=== PATIENT | female | born 1970 | race Caucasian/White ===

== ENCOUNTER 2017-10-17 17:50 | Emergency (ER) | payer OTHER, SELFPAY ==
[2017-10-17 17:52] VITALS: BP 127/81; PULSE 99; RESP 16; TEMP 37.1; O2SAT 96; BMI 24.9
--- NOTE | 2017-10-17 18:15 | CT_ITS ---
STUDY: CT ABDOMEN AND PELVIS WITHOUT CONTRAST REASON FOR EXAM: Female, 47 years old. Fever, nausea and abdominal pain. RADIATION DOSAGE (If Supplied By Facility): CTDIvol = ( 8.10 ) mGy, DLP = ( 396.61 ) mGycm TECHNIQUE: Transaxial images were obtained from the dome of the diaphragm to the symphysis pubis without oral contrast, and without intravenous contrast. Sagittal and coronal images were reconstructed. Individualized dose optimization techniques were used for this CT. COMPARISON: None. FINDINGS: The visualized lung bases are unremarkable. The visualized portions of the heart are within normal limits. Normal liver. Normal gallbladder and extrahepatic biliary system. There are multiple benign calcified granulomata of the spleen. Normal pancreas. Normal bilateral adrenal glands. Normal right kidney. Normal left kidney. Evaluation of the GI tract is limited by absence of oral contrast. Cannot exclude stomach wall thickening. No dilated loops of bowel or evidence for obstruction. Cannot exclude segmental thickening of the ibarra of the small or large bowel. Cannot exclude enteritis. Prominent thickening of the wall of the proximal descending colon and pericolonic fat stranding, where there are numerous diverticuli. Findings are best seen on coronal images 54-66. Findings are most likely related to acute diverticulitis. No gross perforation or abscess. Appendix within normal limits. Normal abdominal aorta. Normal inferior vena cava. Normal retroperitoneum. Normal urinary bladder. Normal visualized uterus. Normal abdominal wall. Normal osseous structures. CT/Abdomen/Pelvis without Cont IMPRESSION: Abnormal proximal descending colon most consistent with acute diverticulitis. Electronically Signed: Eliud Lentz MD at 19:06 EDT , Service support ,
[2017-10-17] MEDS: 0.9% Normal Saline 1,000 ML 1000 ML IV (18:27)
[2017-10-17 18:31] LABS: Bacteria 0 SEEN /hpf (None Seen); Mucous, Urine 0 SEEN /hpf (<or=2+); Red Blood Cells-Urine 0 SEEN /hpf (0-5); White Blood Cells 0 SEEN /hpf (0-5)
[2017-10-17 18:39] LABS: Color, Urine Yellow (Yellow); Glucose, Dipstick Normal (Normal); Ketone-Dipstick Negative (Negative); Leukocyte Esterase-Dipstick Negative /ul (Negative); Nitrite-Dipstick Negative (Negative); Occult Blood-Urine Negative /ul (Negative); Protein-Dipstick Negative (Negative); Urine Bilirubin Dipstick Negative (Negative); Urine Clarity Clear (Clear); Urine Urobilinogen Normal (Normal)
[2017-10-17 18:44] LABS: Squamous Epithelial Cells - UA 0-5 SEEN /hpf (5-10)
[2017-10-17 18:47] LABS: Absolute Lymphocyte Count 1.19 X10^3/ul (0.83-4.51); Absolute Neutrophil Count 12.3 X10^3/uL (2.0-7.7); Anion Gap 9 (5-15); BUN 8 mg/dL (7-18); BUN/Creat Ratio 11.3 RATIO (10-20); Basophil# 0.01 X10^3/uL; Basophil% 0.1 % (0-1); Calcium,Total 8.6 mg/dL (8.5-10.1); Chloride 106 mmol/L (98-107); Creatinine, Serum 0.71 mg/dL (0.55-1.02); EST Glomerular Filtration Rate 94 mL/min (>60); Eosinophil# 0.07 X10^3/uL; Eosinophils% 0.5 % (0-5); Est Glom Filt Rate - Afr Amer 113 mL/min (>60); Estimated Creatinine Clearance 83.68 ml/min; Glucose 96 mg/dL (74-106); Hematocrit 42.3 % (37-47); Hemoglobin 14.4 g/dl (12.0-15.0); Lymphocyte # 1.19 X10^3/ul (4.0); Lymphocyte % 8.3 % (19-41); Mean Corpuscular Hgb 30.5 pg (27.0-32.0); Mean Corpuscular Volume 89.6 fL (81-99); Mean Platelet Vol. 9.9 fl (6.2-12.0); Monocyte# 0.84 X10^3/uL; Monocyte% 5.8 % (0-10); Neutrophil # 12.29 X10^3/uL (2.7-7.7); Neutrophil % 85.2 % (47-70); POSITIVE COUNT NO; POSITIVE DIFFERENTIAL NO; POSITIVE MORPHOLOGY NO; Platelet Count 240 K/mm3 (150-450); Potassium 3.5 mmol/L (3.5-5.1); RBC Distribution Width CV 12.3 % (11.6-14.6); RBC Distribution Width SD 39.7 fl (35.1-43.9); Red Blood Count 4.72 M/mm3 (4.2-5.4); Sodium Level 139 mmol/L (136-145); White Blood Count 14.4 K/mm3 (4.4-11.0)
--- NOTE | 2017-10-17 19:44 | ED.DCSUM_ITS ---
- ER Visit Summary Date of Service: 10/17/17 Chief Complaint: Abdominal pain History of Present Illness: The patient is a 47 F presenting for evaluation secondary to abdominal pain. Patient states that since yesterday she has had lower abdominal pain that she describes as a continuous pressure across her abdomen and a sharp pain in her left lower quadrant that goes through to her lower back. Patient states that it has been associated with nausea no vomiting and has not been alleviated by Advil. She does state that she has had some chills associated with this. Also states that she has some urinary frequency. Patient states that the symptoms seem somewhat similar to a ruptured ovarian cyst that she had 6 months ago. She also has a history of diverticulitis in the past. Physical Examination: Vital signs within normal limits. Well-nourished female no acute distress. Moist mucous membranes, neck supple. Heart regular rate and rhythm, lungs clear to auscultation bilaterally. Abdomen tender in the left lower quadrant no guarding rebound tenderness nondistended normal bowel sounds. No skin rashes noted remainder of physical otherwise unremarkable. Test Results: CT abdomen and pelvis shows diverticulitis. CBC shows leukocytosis of 14. Chemistry and urinalysis negative. Emergency Department Course and Treatment: Patient presented with left lower quadrant abdominal pain. She did have some concern for the possibility of diverticulitis CT was performed concerned this. Patient does not have any evidence of acidosis or anion gap she does have mild leukocytosis I believe she is appropriate for outpatient treatment. Patient will be sent home with Augmentin, [place], and Zofran. She was given signs and symptoms for which to return was instructed to follow-up with her primary care physician. Disposition: Discharge Impression: 1. Diverticulitis This note was generated with [employer] dictation software. It may contain incorrect words, spelling, and punctuation that were not noted in review of the chart prior to signing ED Disposition - Plan for ED Patient: Disposition: Home or Assisted Living Chief Complaint: Abd Pain Diagnosis: Diverticulitis Instructions: ED Diverticulitis Prescriptions: Hydrocodone Bitart/Apap 5-325 [[place] 5/325] 1 tab PO Q6H PRN PRN 3 Days #12 tab PRN Reason: Pain Ondansetron [Zofran Odt] 4 mg PO Q8H PRN PRN #10 tab PRN Reason: Nausea Amox/Clavulanate Tablet [Augmentin Tablet] 875 mg PO Q12H #28 tab Referrals: Elder Argueta MD [Primary Care Provider] - 1-2 Weeks
[2017-10-17] MEDS: Amox/Clavulanate 875 MG Tablet PO (20:02)
[2017-10-17 20:05] VITALS: BP 118/72; PULSE 70; RESP 14; O2SAT 100
== END 2017-10-17 20:05 | disposition home or self-care (01) ==
LOC: ED 18:34
PROVIDERS: Emergency Provider Emergency Medicine; Family Provider Family Medicine; PCP Family Medicine
DX: K57.92 Diverticulitis of intestine, part unspecified, without perforation or abscess without bleeding (principal)
CPT/HCPCS: 74176; 80048; 81001; 85025; 99284; J7030; A4216

== ENCOUNTER → 2018-10-20 18:06 | Outpatient (CLI) | payer OTHER, SELFPAY | PROVIDERS: Family Provider Family Medicine; PCP Family Medicine; Referring Provider Family Medicine; Visit Provider Family Medicine | DX: R10.2 Pelvic and perineal pain (principal) | CPT/HCPCS: 87086; 87088 ==

== ENCOUNTER 2018-10-29 13:59 | Inpatient (IN) | payer OTHER, SELFPAY ==
[2018-10-29 13:59] VITALS: BP 129/91; PULSE 105; RESP 16; TEMP 37.3; O2SAT 100; BMI 24.3
--- NOTE | 2018-10-29 14:25 | CT_ITS ---
STUDY: CT ABDOMEN AND PELVIS WITHOUT CONTRAST REASON FOR EXAM: Female, 48 years old. Abdominal pain, history of diverticulitis RADIATION DOSAGE (If Supplied By Facility): CTDIvol = ( 12.32 ) mGy, DLP = ( 706.71 ) mGycm TECHNIQUE: Transaxial images were obtained from the dome of the diaphragm to the symphysis pubis without oral contrast, and without intravenous contrast. Sagittal and coronal images were reconstructed. Individualized dose optimization techniques were used for this CT. COMPARISON: CT abdomen and pelvis 10/17/2017. FINDINGS: Lack of intravenous contrast limits evaluation of abdominal and pelvic organs. The visualized lung bases are unremarkable. The visualized portions of the heart are within normal limits. Normal liver. Normal gallbladder and extrahepatic biliary system. Normal spleen. Normal pancreas. Normal bilateral adrenal glands. Normal right kidney. Normal left kidney. Normal visualized stomach. Normal small intestine. There is colonic diverticulosis most prominent at the sigmoid colon. There is a segment of sigmoid colon wall thickening and adjacent mesenteric inflammation and stranding in keeping with acute diverticulitis. There is no perforation or abscess. There is trace free fluid in the left pelvis.. The appendix is visualized and appears normal. Normal abdominal aorta. Normal inferior vena cava. Normal retroperitoneum. Normal urinary bladder. There are nabothian cysts seen in the posterior cervix. There is a left ovarian cyst measuring 2.7 x 2.5 cm. Normal abdominal wall. Normal osseous structures. CT/Abdomen/Pelvis W IV Cont ONLY IMPRESSION: Acute sigmoid diverticulitis. No perforation or abscess. Trace free fluid in the left pelvis. Electronically Signed: Marc Bowling, at 15:57 EDT Tel , Service support ,
[2018-10-29] MEDS: Ondansetron 4 MG/2 ML Vial IV (14:35)
[2018-10-29] MEDS: 0.9% Normal Saline 1,000 ML 1000 ML IV (14:35)
[2018-10-29] MEDS: Morphine 4 MG/ML Syringe IV (14:36)
[2018-10-29 14:53] LABS: Absolute Lymphocyte Count 1.27 X10^3/ul (0.83-4.51); Absolute Neutrophil Count 9.8 X10^3/uL (2.0-7.7); Basophil# 0.01 X10^3/uL; Basophil% 0.1 % (0-1); Eosinophil# 0.05 X10^3/uL; Eosinophils% 0.4 % (0-5); Hematocrit 42.4 % (37-47); Hemoglobin 14.4 g/dl (12.0-15.0); Lymphocyte # 1.27 X10^3/ul (4.0); Mean Corpuscular Hgb 29.6 pg (27.0-32.0); Mean Corpuscular Volume 87.1 fL (81-99); Mean Platelet Vol. 10.5 fl (6.2-12.0); Monocyte# 0.42 X10^3/uL; Monocyte% 3.6 % (0-10); Neutrophil # 9.81 X10^3/uL (2.7-7.7); Neutrophil % 84.8 % (47-70); POSITIVE COUNT NO; POSITIVE DIFFERENTIAL NO; POSITIVE MORPHOLOGY NO; Platelet Count 265 K/mm3 (150-450); RBC Distribution Width CV 12.6 % (11.6-14.6); RBC Distribution Width SD 39.5 fl (35.1-43.9); Red Blood Count 4.87 M/mm3 (4.2-5.4); White Blood Count 11.6 K/mm3 (4.4-11.0)
[2018-10-29 15:26] LABS: Anion Gap 8 (5-15); BUN 8 mg/dL (7-18); BUN/Creat Ratio 9.6 RATIO (10-20); Chloride 107 mmol/L (98-107); Creatinine, Serum 0.83 mg/dL (0.55-1.02); EST Glomerular Filtration Rate 77 mL/min (>60); Est Glom Filt Rate - Afr Amer 93 mL/min (>60); Glucose 134 mg/dL (74-106); Potassium 3.5 mmol/L (3.5-5.1); Sodium Level 141 mmol/L (136-145)
[2018-10-29 16:16] VITALS: PULSE 89; RESP 18; O2SAT 100
--- NOTE | 2018-10-29 16:19 | ED.DCSUM_ITS ---
History of Present Illness Chief Complaint: Abd Pain Informant: Patient Onset: Days - Day 10 of Augmentin Context: Sudden Onset Timing: Continuous Quality: Pain left lower quadrant Location: Left lower quadrant Current Severity: Mild Maximum Severity: Severe Worsened by: Walking, coughing palpation Relieved by: Nothing Associated Symptoms: Nausea Narrative: Patient is a 48-year-old woman who has been diagnosed with diverticulitis 6 prior occasions. She was seen by her primary care physician and placed on Augmentin. She is on day 10 of Augmentin. She reports because of increased pain. She does complain of subjective fever and nausea. She denies dysuria, frequency, urgency or hematuria. She has a remote history of renal calculi. She states this pain is not like the pain she experienced with obstructing stone. She denies cardiac respiratory symptoms. - Past Medical History (1) Diverticulitis large intestine Status: Acute Past Medical History - Allergies and Home Meds Allergies/Adverse Reactions: Allergies morphine Adverse Reaction (Verified 10/29/18 15:21) Shortness of breath anxiety, chest tightness, tachycardia, tingling in fingers, sob Primary Care Physician: Elder Argueta MD [Primary Care Provider] - Prior records reviewed: Yes Lives: Spouse/ Significant Other Smoking Status: Never smoker Drugs: None Review of Systems General: Reports: Fever, Subjective. Denies: Chills, Malaise, Sweats, Weight loss Eyes: Denies: Visual changes - bilaterally, Diplopia ENT: Denies: Rhinorrhea, Sore throat Cardiovascular: Denies: Chest pain, Palpitations Respiratory: Denies: Dyspnea, Cough, Dyspnea on exertion Gastrointestinal: Reports: Abdominal pain, Nausea. Denies: Vomiting, Diarrhea, Constipation, Melena, Hematochezia Genitourinary: Denies: Dysuria, Hematuria, Frequency Musculoskeletal: Denies: Back pain, Extremity Pain Skin: Denies: Rash, Wounds Neurological: Denies: Headache, Weakness, Numbness Hematologic: Denies: Easy bruising, Easy bleeding Allergy: Denies: Uticaria, Swelling of the mouth Physical Exam Vital Signs/Narrative: Vital Signs Temp Pulse Resp BP Pulse Ox 10/29/18 13:59 99.1 F 105 H 16 129/91 H 100 Inital Vital Signs reviewed: Yes General: Well nourished, Well developed, No Acute Distress Head: Normocephalic, Atraumatic Eyes: Perrl, EOMI. Negative for: Pale conjunctiva, Scleral icterus, - ENT: Moist mucous membranes, No rhinorrhea, TM's clear Neck: Supple, Nontender, No lymphadenopathy, No JVD, - Cardiovascular: Regular rate, Regular rhythm, No murmurs, Normal S1, Normal S2 Respiratory: No distress, CTA bilaterally, Chest nontender Abdomen: Nondistended, No masses, Tender, Guarding, Rebound tenderness, Hypoactive bowel sounds. Negative for: Normal bowel sounds, Hepatomegaly, Splenomegaly, Mass, Pulsatile mass Rectal: Deferred Back: Nontender, Normal Inspection. Negative for: CVA tenderness Extremities: Nontender, No edema Skin: Normal color, No rash Neurological: Alert, Oriented x3, Cranial nerves II-XII grossly intact, Normal Strength, Normal Sensation Psychological: Normal affect, Normal Mood Diagnostic/Tx/Re-eval Impressions Abdomen/Pelvis CT 10/29/18 14:25 IMPRESSION: Acute sigmoid diverticulitis. No perforation or abscess. Trace free fluid in the left pelvis. Electronically Signed: Marc Tawnya, at 15:57 EDT Tel , Service support , 10/29/18 14:25 Abdomen/Pelvis W IV Cont ONLY [CT] Stat Laboratory Results 10/29/18 10/29/18 14:34 14:34 WBC 11.6 H RBC 4.87 Hgb 14.4 Hct 42.4 MCV 87.1 MCH 29.6 MCHC 34.0 RDW 12.6 RDW Differential 39.5 Plt Count 265 MPV 10.5 Immature Gran % (Auto) 0.100 Neut % (Auto) 84.8 H Lymph % (Auto) 11.0 L [place] % (Auto) 3.6 Eos % (Auto) 0.4 Baso % (Auto) 0.1 Absolute Neuts (auto) 9.8 H Absolute Lymphs (auto) 1.27 Total Counted Not Reportable Sodium 141 Potassium 3.5 Chloride 107 Carbon Dioxide 26.0 Anion Gap 8 BUN 8 Creatinine 0.83 Estim Creat Clear Calc 70.80 Est GFR (MDRD) Af Amer 93 Est GFR (MDRD) Non-Af 77 BUN/Creatinine Ratio 9.6 L Glucose 134 H Calcium 9.0 - Medical Decision Making Because patient has peritoneal findings and has completed 10 days of Augmentin will obtain CT of the abdomen to rule out perforation. Appropriate blood work was ordered. She received 4.5 g of Zosyn IV piggyback. Patient was informed of results. Hospitalist was paged for admission. ED Disposition - Plan for ED Patient: Disposition: Acute Care Hospital [facility] Diagnosis: Diverticulitis of sigmoid colon Referrals: Elder Argueta MD [Primary Care Provider] -
[2018-10-29 16:32] VITALS: BMI 24.4
[2018-10-29 17:10] VITALS: BMI 25.0
[2018-10-29 17:13] VITALS: BP 131/93; PULSE 73; RESP 18; TEMP 36.7; O2SAT 100
--- NOTE | 2018-10-29 17:33 | HP.PCM_ITS ---
Problem List (1) Diverticulitis large intestine Status: Chronic (2) Diverticulitis of sigmoid colon Status: Acute History of Present Illness Date of Admission: 10/29/18 Chief Complaint: Abdominal pain on and off for about 2 weeks The patient is a 48 year old With history of recurrent sigmoid diverticulitis for last 5 years, at least once every year came to ED with abdominal pain, nausea and diarrhea. This is started about 2 weeks ago and was started on Augmentin but she still having abdominal pain, nausea even on 10th day of antibiotic. She was seen by surgeon and [facility] about 3 years ago but has not seen recently. CT abdomen without contrast was done and shows acute sigmoid diverticulitis with no perforation or abscess but trace free fluid in left pelvis. The patient is started on IV antibiotics, Cipro and Flagyl after failure of outpatient antibiotic Past Medical History Past Medical History (Chronic Problems): Chronic Problems Diverticulitis large intestine (Chronic) Allergies morphine Allergy (Verified 10/29/18 17:23) Shortness of breath anxiety, chest tightness, tachycardia, tingling in fingers, sob Home Medications: Ambulatory Orders Medication Instructions Recorded Amox/Clavulanate Tablet [Augmentin 875 mg PO Q12H #28 tab 10/17/17 Tablet] Lives: Spouse/ Significant Other Smoking Status: Never smoker Tobacco Use: Non-smoker Drugs: None - *Family History Maternal History Items: - - Diverticulitis Colon polyps in maternal aunt. Review of Systems Constitutional: Denies: Chills, Fever HEENT: Denies: Head Aches, Sinus Congestion, Sinus Drainage Cardiovascular: Denies: Chest Pain, Palpitations Respiratory: Denies: Cough, Shortness of breath at rest, Sputum production Gastrointestinal: Reports: Abdominal Pain, Diarrhea, Nausea. Denies: Hematemesis, Hematochezia, Vomiting Genitourinary: Reports: Frequency, - - Bladder irritation. Denies: Dysuria Musculoskeletal: Denies: Joint Pain, Joint Tenderness Skin: Denies: Rash, Wounds Neurological: Denies: Numbness, Tingling, Focal weakness Psychiatric: Denies: Anxiety, Depression, Homicidal Ideations, Suicidal Ideations Hematologic/ Lymphatic: Denies: Easy Bruising, Easy Bleeding VTE Information - Inpt Only VTE Present on Admission: No VTE Mechan Device Prophylaxis: SCD's VTE Pharm Prophylaxis ordered?: No Patient Problems: Active and Suspected Problems Diverticulitis of sigmoid colon (Acute) - Physical Exam General: Alert, Oriented x3, Cooperative HEENT: Atraumatic, PERRLA, EOMI, Normocephalic Neck: Supple, No JVD, Negative Carotid Bruits Lungs: Clear to auscultation, Normal air movement, No rhonchi, No wheeze, No rales Cardiovascular: Regular rate, Regular Rhythm, Normal S1, Normal S2, No murmurs Abdomen: Bowel Sounds Present, Soft, Non-Distended, Hyperactive Bowel Sounds, Tender - Tenderness present over left lower quadrant and hypochondriac region Extremities: No edema, Capillary Refill Less than 3 Seconds Skin: No rashes, No breakdown Musculoskeletal: No Tenderness to Palpation of Joints or Extremities Lymphatic: No Cervical, Supraclavicular, or Inguinal Adenopathy Neurological: Cranial nerves II-XII grossly intact, Deep Tendon Reflexes 2+/4 and Symmetrical, Neuro grossly intact, Motor Exam 5/5 strength throughout Psych/Mental Status: Normal Affect, Appropriate Vital Signs Temp Pulse Resp BP Pulse Ox 98.0 F 73 18 131/93 H 100 10/29/18 17:13 10/29/18 17:13 10/29/18 17:13 10/29/18 17:13 10/29/18 17:13 Oxygen Delivery Method Room Air Weight: 145 lb 11.2 oz Body Mass Index (BMI) 25.0 Laboratory Tests Past 24 Hrs 10/29/18 10/29/18 14:34 14:34 WBC 11.6 H RBC 4.87 Hgb 14.4 Hct 42.4 MCV 87.1 MCH 29.6 MCHC 34.0 RDW 12.6 RDW Differential 39.5 Plt Count 265 MPV 10.5 Immature Gran % (Auto) 0.100 Neut % (Auto) 84.8 H Lymph % (Auto) 11.0 L [place] % (Auto) 3.6 Eos % (Auto) 0.4 Baso % (Auto) 0.1 Absolute Neuts (auto) 9.8 H Absolute Lymphs (auto) 1.27 Total Counted Not Reportable Sodium 141 Potassium 3.5 Chloride 107 Carbon Dioxide 26.0 Anion Gap 8 BUN 8 Creatinine 0.83 Estim Creat Clear Calc 70.80 Est GFR (MDRD) Af Amer 93 Est GFR (MDRD) Non-Af 77 BUN/Creatinine Ratio 9.6 L Glucose 134 H Calcium 9.0 Assessment/Plan All Active Problems Diverticulitis of sigmoid colon (Acute) The patient is a 48 year old With history of recurrent sigmoid diverticulitis for last 5 years, at least once every year came to ED with abdominal pain, nausea and diarrhea. This is started about 2 weeks ago and was started on Augmentin but she still having abdominal pain, nausea even on 10th day of antibiotic. She was seen by surgeon and [facility] about 3 years ago but has not seen recently. CT abdomen without contrast was done and shows acute sigmoid diverticulitis with no perforation or abscess but trace free fluid in left pelvis. The patient is started on IV antibiotics, Cipro and Flagyl after failure of outpatient antibiotic. 1. Acute sigmoid diverticulitis: Patient is being admitted on regular MedSurg floor. Started on IV fluid normal saline, IV Cipro and Flagyl, pain medication as needed. On clear liquid diet. Mild leukocytosis. Follow-up CBC. 2. Recurrent sigmoid diverticulitis: Patient was suggested outpatient follow-up with surgeon to evaluate for sigmoid colectomy in 3-4 weeks. 3. DVT prophylaxis: Bilateral SCDs. Low risk. Patient denies previous history of DVT/PE. Clinical Impression(s) from Imaging Studies Abdomen/Pelvis CT 10/29/18 14:25 IMPRESSION: Acute sigmoid diverticulitis. No perforation or abscess. Trace free fluid in the left pelvis. Code Visit Inpatient E&M: 27780 Init Hosp L3
[2018-10-29] MEDS: oxyCODONE 5 MG Tablet PO (20:02)
[2018-10-29] MEDS: Ciprofloxacin 400 MG/200 ML BAG 200 MG IV (21:31)
[2018-10-29 22:00] VITALS: BP 116/75; PULSE 89; RESP 16; TEMP 37.3; O2SAT 100
[2018-10-29] MEDS: proMETHazine 25 MG/ML Syringe IV (22:34)
--- NOTE | 2018-10-29 22:37 | NURSING ---
pt c/o feeling nauseated, prn phenerqan given
[2018-10-29 23:00] VITALS: BP 116/75; PULSE 89; RESP 16; TEMP 37.3; O2SAT 100
[2018-10-29 23:34] VITALS: O2SAT 100
[2018-10-30] MEDS: 0.9% NaCl Peripheral Flush Adult/Peds IV (02:07)
[2018-10-30] MEDS: proCHLORPERazine 10 MG/2 ML Vial 5 MG IV (02:07)
[2018-10-30] MEDS: 0.9% Normal Saline 1,000 ML 100 ML IV ×2 (03:19→15:22)
[2018-10-30] MEDS: proMETHazine 25 MG/ML Syringe IV (04:30)
[2018-10-30 04:55] VITALS: BP 102/69; PULSE 80; RESP 16; TEMP 36.9; O2SAT 98
[2018-10-30 06:35] VITALS: O2SAT 98
[2018-10-30 07:06] LABS: Absolute Lymphocyte Count 1.05 X10^3/ul (0.83-4.51); Absolute Neutrophil Count 8.1 X10^3/uL (2.0-7.7); Basophil# 0.01 X10^3/uL; Basophil% 0.1 % (0-1); Eosinophil# 0.01 X10^3/uL; Eosinophils% 0.1 % (0-5); Hemoglobin 12.8 g/dl (12.0-15.0); Lymphocyte # 1.05 X10^3/ul (4.0); Lymphocyte % 10.9 % (19-41); Mean Corp Hgb Conc 33.7 g/gl (32-36); Mean Corpuscular Hgb 29.9 pg (27.0-32.0); Mean Corpuscular Volume 88.8 fL (81-99); Mean Platelet Vol. 10.4 fl (6.2-12.0); Monocyte% 5.2 % (0-10); Neutrophil # 8.08 X10^3/uL (2.7-7.7); Neutrophil % 83.5 % (47-70); Platelet Count 224 K/mm3 (150-450); RBC Distribution Width CV 12.5 % (11.6-14.6); RBC Distribution Width SD 40.1 fl (35.1-43.9); Red Blood Count 4.28 M/mm3 (4.2-5.4); White Blood Count 9.7 K/mm3 (4.4-11.0)
[2018-10-30 07:13] LABS: POSITIVE COUNT NO; POSITIVE DIFFERENTIAL NO; POSITIVE MORPHOLOGY NO
[2018-10-30 07:27] LABS: Anion Gap 5 (5-15); BUN 5 mg/dL (7-18); BUN/Creat Ratio 7.9 RATIO (10-20); Chloride 110 mmol/L (98-107); Creatinine, Serum 0.63 mg/dL (0.55-1.02); EST Glomerular Filtration Rate 106 mL/min (>60); Est Glom Filt Rate - Afr Amer 129 mL/min (>60); Estimated Creatinine Clearance 93.28 ml/min; Glucose 100 mg/dL (74-106); Potassium 4.3 mmol/L (3.5-5.1); Sodium Level 139 mmol/L (136-145)
[2018-10-30 08:45] VITALS: BP 99/71; PULSE 69; RESP 16; TEMP 36.6; O2SAT 100
--- NOTE | 2018-10-30 11:10 | CM.UR ---
RN CM Assessment Met face to face with patient for initial transition planning/care coordination assessment. Introduced myself and my role. Verb understanding and agreement for assessment. Presentation: Hx of diverticulitis. Had flare up and was on po antibiotics but still having increased pain so presented to ER. PCP: Dr. Argueta Specialists: None. Currently deciding on surgeon to evaluate for need for surgery for diverticulitis. Preferred Pharmacy: [facility] Insurance: MMO Prescription Benefit: Yes LNOK: [place] Home: 2 story, bedroom on 2nd floor. No problems accessing home or bedroom. ADLs: Independent with all ADLs. Transportation: Drives self. DME: None. Denies need. SNF/HHC: Denies Passport/waiver maintenance mgr: Denies Advance Directives: States has and knows she needs to bring in. [place] is DPOA for healthcare. DC PLAN: Home with referral to surgeon with OP follow up. Dewey Hernandez RN, CCM.
--- NOTE | 2018-10-30 13:33 | PCM.PROGNOTE ---
Patient Problems: Active and Suspected Problems Diverticulitis of sigmoid colon (Acute) Subjective: Patient seen and examined. Abdominal pain improved. Reports she had nausea this morning which has resolved following IV antiemetics. Denies fever, chills. - Physical Exam General: Alert, Oriented x3, Cooperative HEENT: Atraumatic, PERRLA, EOMI, Normocephalic Neck: Supple, No JVD, Negative Carotid Bruits Lungs: Clear to auscultation, Normal air movement Cardiovascular: Regular rate, Regular Rhythm, Normal S1, Normal S2, No murmurs Abdomen: Bowel Sounds Present, Soft, Non Tender, Non-Distended Extremities: No clubbing, No cyanosis, No edema, Capillary Refill Less than 3 Seconds Skin: No rashes, No breakdown Musculoskeletal: No Tenderness to Palpation of Joints or Extremities Neurological: Cranial nerves II-XII grossly intact, Neuro grossly intact Psych/Mental Status: Normal Affect, Appropriate Vital Signs Temp Pulse Resp BP Pulse Ox 97.8 F 69 16 99/71 100 10/30/18 08:45 10/30/18 08:45 10/30/18 08:45 10/30/18 08:45 10/30/18 08:45 Oxygen Delivery Method Room Air Weight: 145 lb 11.185 oz Body Mass Index (BMI) 25.0 Intake and Output for Last 24 Hours 10/28/18 10/29/18 10/30/18 23:59 23:59 23:59 Intake Total 1104 / 1104 871 / 871 Output Total 600 / 600 1100 / 1100 Balance 504 / 504 -229 / -229 Laboratory Tests Past 24 Hrs 10/29/18 10/29/18 10/30/18 14:34 14:34 06:35 WBC 11.6 H RBC 4.87 Hgb 14.4 Hct 42.4 MCV 87.1 MCH 29.6 MCHC 34.0 RDW 12.6 RDW Differential 39.5 Plt Count 265 MPV 10.5 Immature Gran % (Auto) 0.100 Neut % (Auto) 84.8 H Lymph % (Auto) 11.0 L [place] % (Auto) 3.6 Eos % (Auto) 0.4 Baso % (Auto) 0.1 Absolute Neuts (auto) 9.8 H Absolute Lymphs (auto) 1.27 Total Counted Not Reportable Sodium 141 139 Potassium 3.5 4.3 Chloride 107 110 H Carbon Dioxide 26.0 24.0 Anion Gap 8 5 BUN 8 5 L Creatinine 0.83 0.63 Estim Creat Clear Calc 70.80 93.28 Est GFR (MDRD) Af Amer 93 129 Est GFR (MDRD) Non-Af 77 106 BUN/Creatinine Ratio 9.6 L 7.9 L Glucose 134 H 100 Calcium 9.0 8.0 L 10/30/18 06:35 WBC 9.7 RBC 4.28 Hgb 12.8 Hct 38.0 MCV 88.8 MCH 29.9 MCHC 33.7 RDW 12.5 RDW Differential 40.1 Plt Count 224 MPV 10.4 Immature Gran % (Auto) 0.200 Neut % (Auto) 83.5 H Lymph % (Auto) 10.9 L [place] % (Auto) 5.2 Eos % (Auto) 0.1 Baso % (Auto) 0.1 Absolute Neuts (auto) 8.1 H Absolute Lymphs (auto) 1.05 Total Counted Not Reportable Sodium Potassium Chloride Carbon Dioxide Anion Gap BUN Creatinine Estim Creat Clear Calc Est GFR (MDRD) Af Amer Est GFR (MDRD) Non-Af BUN/Creatinine Ratio Glucose Calcium Medical Necessity - Tobacco Use Smoking Status: Never smoker Tobacco Use: Non-smoker Assessment/Plan All Active Problems Diverticulitis of sigmoid colon (Acute) 1. Acute sigmoid diverticulitis, recurrent, failed outpatient antibiotic therapy-patient reports multiple episodes of diverticulitis over the past several years. She reports she had a colonoscopy approximately 5 years ago which showed diverticulosis, no other reported abnormality. CT of abdomen pelvis shows acute sigmoid diverticulitis, no perforation or abscess. Trace free fluid in the left pelvis. Consult general surgery. IV zosyn. Continue prn antiemetics. Mild leukocytosis resolved. Anticipate discharge home tomorrow with further outpatient follow-up with general surgery. DVT prophylaxis-SCDs This patient was seen by JACQUIE Reece under the supervision of Dr. Low.
[2018-10-30 14:16] VITALS: BP 105/64; PULSE 80; RESP 16; TEMP 36.7; O2SAT 98
[2018-10-30] MEDS: Ensure Clear 120 ML Liquid PO ×3 (14:24→21:47)
[2018-10-30 20:35] VITALS: BP 110/71; PULSE 71; RESP 16; TEMP 37.1; O2SAT 96
[2018-10-31] MEDS: 0.9% Normal Saline 1,000 ML 100 ML IV ×3 (00:07→20:22)
[2018-10-31 01:59] VITALS: BP 93/54; PULSE 70; RESP 14; TEMP 36.7; O2SAT 99
[2018-10-31 09:25] VITALS: BP 112/69; PULSE 76; RESP 16; TEMP 36.8; O2SAT 100
[2018-10-31] MEDS: Ensure Clear 120 ML Liquid PO ×2 (09:54→14:37)
--- NOTE | 2018-10-31 09:58 | PCM.PROGNOTE ---
Patient Problems: Active and Suspected Problems Diverticulitis of sigmoid colon (Acute) Subjective: Patient seen and examined. Abdominal pain continues to be improved. Mild nausea this morning. General surgery recommending another 24 hours on IV antibiotic therapy. - Physical Exam General: Alert, Oriented x3, Cooperative HEENT: Atraumatic, PERRLA, EOMI, Normocephalic Neck: Supple, No JVD, Negative Carotid Bruits Lungs: Clear to auscultation, Normal air movement Cardiovascular: Regular rate, Regular Rhythm, Normal S1, Normal S2, No murmurs Abdomen: Bowel Sounds Present, Soft, Non Tender, Non-Distended Extremities: No clubbing, No cyanosis, No edema, Capillary Refill Less than 3 Seconds Skin: No rashes, No breakdown Musculoskeletal: No Tenderness to Palpation of Joints or Extremities Neurological: Cranial nerves II-XII grossly intact, Neuro grossly intact Psych/Mental Status: Normal Affect, Appropriate Vital Signs Temp Pulse Resp BP Pulse Ox 98.2 F 76 16 112/69 100 10/31/18 09:25 10/31/18 09:25 10/31/18 09:25 10/31/18 09:25 10/31/18 09:25 Oxygen Delivery Method Room Air Weight: 145 lb 11.185 oz Body Mass Index (BMI) 25.0 Intake and Output for Last 24 Hours 10/29/18 10/30/18 10/31/18 23:59 23:59 23:59 Intake Total 1104 / 1104 871 / 871 2272 / 2272 Output Total 600 / 600 1100 / 1100 2100 / 2100 Balance 504 / 504 -229 / -229 172 / 172 Medical Necessity - Tobacco Use Smoking Status: Never smoker Tobacco Use: Non-smoker Assessment/Plan All Active Problems Diverticulitis of sigmoid colon (Acute) 1. Acute sigmoid diverticulitis, recurrent, failed outpatient antibiotic therapy-patient reports multiple episodes of diverticulitis over the past several years. She reports she had a colonoscopy approximately 5 years ago which showed diverticulosis, no other reported abnormality. CT of abdomen pelvis shows acute sigmoid diverticulitis, no perforation or abscess. Trace free fluid in the left pelvis. General surgery, Dr. Batista on consult. IV zosyn. Continue prn antiemetics. Mild leukocytosis resolved. General surgery recommending another 24 hours on IV antibiotic therapy. Anticipate discharge home tomorrow with further outpatient follow-up with Dr. Batista. DVT prophylaxis-SCDs This patient was seen by JACQUIE Reece under the supervision of Dr. Low.
--- NOTE | 2018-10-31 11:08 | CON.PCM_ITS ---
Reason for Consult Date of Consultation: 10/31/18 Reason for Consultation: recurrent diverticulitis History of Present Illness: The patient is a 48 year old F with a complaint of left lower quadrant pain and recurrent diverticulitis. The patient has had by her account approximately 7 episodes of diverticulitis. These seem to be happening with increasing frequency. The patient was started on Augmentin 10 days previously but failed to note improvement in her symptoms. She presented to [facility] emergency department. She was found to have a normal white blood cell count. CT scan of the abdomen and pelvis was obtained which demonstrated inflammation in the sigmoid region. She was admitted and started on IV Zosyn. She notes improvement in her pain symptoms this morning. The patient had been previously evaluated by Dr. Langley, at the time chair of colorectal surgery at [facility] but they decided against surgical intervention at that time. The patient notes no other significant problems. She underwent colonoscopy approximately 5 years previously after her first attack of diverticulitis and was found to have diverticulosis without other specific abnormalities. This colonoscopy was performed in [place]. Past Medical History Past Medical History (Chronic Problems): Chronic Problems Diverticulitis large intestine (Chronic) Allergies morphine Allergy (Verified 10/29/18 17:23) Shortness of breath anxiety, chest tightness, tachycardia, tingling in fingers, sob Home Medications: Ambulatory Orders Medication Instructions Recorded Amox/Clavulanate Tablet [Augmentin 875 mg PO Q12H #28 tab 10/17/17 Tablet] Surgical History: no surgical history Lives: Spouse/ Significant Other Smoking Status: Never smoker Tobacco Use: Non-smoker Drugs: None - *Family History Maternal History Items: - - Diverticulitis Colon polyps in maternal aunt. Review of Systems Constitutional: Denies: Chills, Fever, Weight Change HEENT: Denies: Head Aches, Sinus Congestion, Sinus Drainage Cardiovascular: Denies: Chest Pain, Palpitations Respiratory: Denies: Cough, Shortness of breath at rest, Sputum production Gastrointestinal: Reports: Abdominal Pain. Denies: Nausea, Vomiting Genitourinary: Denies: Dysuria Musculoskeletal: Denies: Joint Pain, Joint Tenderness Skin: Denies: Rash, Wounds Neurological: Denies: Numbness, Tingling, Focal weakness Psychiatric: Denies: Anxiety, Depression, Homicidal Ideations, Suicidal Ideations Hematologic/ Lymphatic: Denies: Easy Bruising, Easy Bleeding Patient Problems: Active and Suspected Problems Diverticulitis of sigmoid colon (Acute) - Physical Exam General: Alert, Oriented x3, Cooperative HEENT: Atraumatic, PERRLA, EOMI, Normocephalic Neck: Supple, No JVD, Negative Carotid Bruits Lungs: Clear to auscultation, Normal air movement Cardiovascular: Regular rate, No murmurs Abdomen: Bowel Sounds Present, Soft, Non Tender - except for very mild left lower quadrant tenderness Extremities: No edema, Capillary Refill Less than 3 Seconds Skin: No rashes, No breakdown Musculoskeletal: No Tenderness to Palpation of Joints or Extremities Neurological: Cranial nerves II-XII grossly intact Psych/Mental Status: Normal Affect, Appropriate Vital Signs Temp Pulse Resp BP Pulse Ox 98.2 F 76 16 112/69 100 10/31/18 09:25 10/31/18 09:25 10/31/18 09:25 10/31/18 09:25 10/31/18 09:25 Oxygen Delivery Method Room Air Weight: 66.088 kg Body Mass Index (BMI) 25.0 Intake and Output for Last 24 Hours 10/29/18 10/30/18 10/31/18 23:59 23:59 23:59 Intake Total 1104 / 1104 871 / 871 2272 / 2272 Output Total 600 / 600 1100 / 1100 2100 / 2100 Balance 504 / 504 -229 / -229 172 / 172 Assessment/Plan All Active Problems Diverticulitis of sigmoid colon (Acute) recurring diverticulitis now improved with IV antibiotics. Uncomplicated based on CT scan. Given the fact that the patient had 10 days of abdominal pain which did not improve on Augmentin, I would recommend at least 24 hours of additional IV antibiotics even though she has a normal white blood cell count and her pain is improved significantly area the patient discussed how she dislikes the Cipro Flagyl combination but given the fact that she failed to improve on Augmentin I would recommend discharge to home on Cipro and Flagyl. if the patient notes continued side effects with the Flagyl, I would be comfortable with her discontinuing the Flagyl and is continuing on ciprofloxacin. We discussed that once the patient is discharged I would plan to see her in the office in one week to assure her symptoms improved. I then recommend her following up with me in 4 weeks to plan for outpatient colonoscopy. At that visit we can discuss whether she would like to undergo sigmoid resection for recurring diverticulitis or would like to try to avoid this if possible given the fact that her events while increasing in frequency have not been complicated
[2018-10-31 14:35] VITALS: BP 107/69; PULSE 75; RESP 16; TEMP 36.8; O2SAT 98
[2018-10-31 20:24] VITALS: BP 109/68; PULSE 73; RESP 16; TEMP 36.8; O2SAT 97
[2018-11-01 02:29] VITALS: BP 112/69; PULSE 71; RESP 14; TEMP 36.5; O2SAT 94
[2018-11-01] MEDS: 0.9% Normal Saline 1,000 ML 100 ML IV (06:01)
[2018-11-01 08:20] VITALS: BP 103/72; PULSE 74; RESP 18; TEMP 36.6; O2SAT 100
[2018-11-01 08:25] VITALS: PULSE 72
--- NOTE | 2018-11-01 10:59 | PCM.DC ---
- Discharge Diagnoses Current Active Problems: Current Active and Chronic Problems Diverticulitis large intestine (Chronic) Diverticulitis of sigmoid colon (Acute) You will use the following diet at home:: Other - Low-Residue Discharge Activity: Return to Normal Activity Call your doctor if you observe: Fever of 101 or Higher, Inability to have a bowel movement, Uncontrolled pain Allergies/Adverse Reactions: Allergies morphine Allergy (Verified 10/29/18 17:23) Shortness of breath anxiety, chest tightness, tachycardia, tingling in fingers, sob Medications to take at Discharge Amox/Clavulanate Tablet [Augmentin Tablet] 875 mg PO Q12H #16 tab 11/01/18 The following prescriptions were given: Amox/Clavulanate Tablet [Augmentin Tablet] 875 mg PO Q12H #16 tab Primary Care Physician: Elder Argueta MD [Primary Care Provider] - Please follow up with your Primary Care Physician in: 1 Week Test Results: Test results from this visit will be discussed in further detail at your follow-up appointment, if applicable. Please Follow Up With: Jomar Batista MD When: Thursday Proposed Discharge Date: 11/01/18
--- NOTE | 2018-11-01 11:02 | DCINST_ITS ---
- Discharge Diagnoses Current Active Problems: Current Active and Chronic Problems Diverticulitis large intestine (Chronic) Diverticulitis of sigmoid colon (Acute) You will use the following diet at home:: Other - Low-Residue Discharge Activity: Return to Normal Activity Call your doctor if you observe: Fever of 101 or Higher, Inability to have a bowel movement, Uncontrolled pain Allergies/Adverse Reactions: Allergies morphine Allergy (Verified 10/29/18 17:23) Shortness of breath anxiety, chest tightness, tachycardia, tingling in fingers, sob Medications to take at Discharge Amox/Clavulanate Tablet [Augmentin Tablet] 875 mg PO Q12H #16 tab 11/01/18 The following prescriptions were given: Amox/Clavulanate Tablet [Augmentin Tablet] 875 mg PO Q12H #16 tab Primary Care Physician: Elder Argueta MD [Primary Care Provider] - Please follow up with your Primary Care Physician in: 1 Week Test Results: Test results from this visit will be discussed in further detail at your follow- up appointment, if applicable. Please Follow Up With: Jomar Batista MD When: Thursday Proposed Discharge Date: 11/01/18
[2018-11-01 11:22] VITALS: BP 130/89; PULSE 78; RESP 16; TEMP 36.5; O2SAT 100
--- NOTE | 2018-11-01 12:29 | PCM.DC.SUM ---
<Sheila Layne - Last Filed: 11/01/18 12:35> Discharge Date and Diagnosis Date of Admission: 10/29/18 Date of Discharge: 11/01/18 - Primary Discharge Diagnosis 1. Acute sigmoid diverticulitis, recurrent, failed outpatient antibiotic therapy - Secondary Discharge Diagnosis Chronic Problems Diverticulitis large intestine (Chronic) Hospital Course and Treatment Imaging Results: Diagnostic Data Abdomen/Pelvis CT 10/29/18 14:25 IMPRESSION: Acute sigmoid diverticulitis. No perforation or abscess. Trace free fluid in the left pelvis. Electronically Signed: Marc Bowling, at 15:57 EDT Tel , Service support , Dr. Batista-General Surgery Operations: None Procedures: None Summary of Care Provided: The patient is a 48 year old F admitted 10/29/2018 due to abdominal pain. 1. Acute sigmoid diverticulitis, recurrent, failed outpatient antibiotic therapy-patient reports multiple episodes of diverticulitis over the past several years. She reports she had a colonoscopy approximately 5 years ago which showed diverticulosis, no other reported abnormality. CT of abdomen pelvis shows acute sigmoid diverticulitis, no perforation or abscess. Trace free fluid in the left pelvis. General surgery, Dr. Batista on consult. IV zosyn during admission. Mild leukocytosis resolved. Oral Augmentin 875 mg p.o. twice daily at discharge. Follow-up with Dr. Batista next Thursday. General: Alert, Oriented x3, Cooperative HEENT: Atraumatic, PERRLA, EOMI, Normocephalic Neck: Supple, No JVD, Negative Carotid Bruits Lungs: Clear to auscultation, Normal air movement Cardiovascular: Regular rate, Regular Rhythm, Normal S1, Normal S2, No murmurs Abdomen: Bowel Sounds Present, Soft, Non Tender, Non-Distended Extremities: No clubbing, No cyanosis, No edema, Capillary Refill Less than 3 Seconds Skin: No rashes, No breakdown Musculoskeletal: No Tenderness to Palpation of Joints or Extremities Neurological: Cranial nerves II-XII grossly intact, Neuro grossly intact Psych/Mental Status: Normal Affect, Appropriate Patient seen and examined prior to discharge. Physical assessment as noted above. Patient is stable for discharge with follow up recommendations as noted above. This patient was seen by JACQUIE Reece under the supervision of Dr. Orellana. - Physical Exam Vital Signs Temp Pulse Resp BP Pulse Ox 97.7 F L 78 16 130/89 H 100 11/01/18 11:22 11/01/18 11:22 11/01/18 11:22 11/01/18 11:22 11/01/18 11:22 Oxygen Delivery Method Room Air Weight: 145 lb 11.185 oz Body Mass Index (BMI) 25.0 Intake and Output for Last 24 Hours 10/30/18 10/31/18 11/01/18 23:59 23:59 23:59 Intake Total 871 / 871 4493 / 4493 666 / 666 Output Total 1100 / 1100 3100 / 3100 Balance -229 / -229 1393 / 1393 666 / 666 Discharge Diet: - - Low residue Discharge Activity: Return to Normal Activity Call your doctor if you observe: Fever of 101 or Higher, Inability to have a bowel movement, Uncontrolled pain Home Medications: Medications to take at Discharge Amox/Clavulanate Tablet [Augmentin Tablet] 875 mg PO Q12H #16 tab 11/01/18 Following Prescrptions Were Given to Patient: Amox/Clavulanate Tablet [Augmentin Tablet] 875 mg PO Q12H #16 tab Primary Care Physician: Elder Argueta MD [Primary Care Provider] - Please follow up with your Primary Care Physician in: 1 Week Please Follow Up With: Jomar Batista MD When: Next thursday Disposition: Home Minutes spent on discharge:: 35 Patient Condition:: Stable Medical Necessity - Tobacco Use Smoking Status: Never smoker Tobacco Use: Non-smoker Meaningful Use Info Meaningful Use Diagnoses (Choose all that apply): None applicable <Joao Orellana - Last Filed: 11/01/18 16:24> Discharge Date and Diagnosis - Secondary Discharge Diagnosis Chronic Problems Diverticulitis large intestine (Chronic) Hospital Course and Treatment Summary of Care Provided: This patient was seen in conjunction with Sheila MICHAELS. I have independently interviewed and examined the patient and reviewed pertinent history, examination findings, laboratory and plan of management. I have reviewed the note and agree with the documented findings with the few additional points. In brief, patient is admitted for acute sigmoid diverticulitis, recurrent type with failed outpatient therapy. Patient had been having yearly recurrent diverticulitis once in a year for last 5 years. Patient was seen by surgeon Dr. Cuadra. Patient had been treated multiple times with Cipro and Flagyl in the past and has developed nausea and vomiting side effect and does not want further. Initially was started on IV Cipro and Flagyl and changed to IV Zosyn. Patient is discharged on Augmentin 875 mg twice daily. Follow with Dr. Cuadra next Thursday. Discharge medication reconciliation done. Discharge follow-up instructions completed. Discharge process discussed with the patient and all questions were answered to patient's satisfaction.. Total time spent, exact 35 minutes on discharge meds reconciliation, examination, review of imaging and blood test and discussion with the patient on follow-up instructions. I have discussed my assessment with OFFICE RENTAL CLERK, Sheila and orders have been reviewed. Subjective: Seen and examined. Patient does not have abdominal pain. No fever or chills or tachycardia. - Physical Exam General: Alert, Oriented x3, Cooperative HEENT: Atraumatic, PERRLA, EOMI, Normocephalic Neck: Supple, No JVD, Negative Carotid Bruits Lungs: Clear to auscultation, Normal air movement, No rhonchi, No wheeze, No rales Cardiovascular: Regular rate, Regular Rhythm, Normal S1, Normal S2, No murmurs Abdomen: Bowel Sounds Present, Soft, Non Tender, Non-Distended Extremities: No edema, Capillary Refill Less than 3 Seconds Skin: No rashes, No breakdown Musculoskeletal: No Tenderness to Palpation of Joints or Extremities Neurological: Cranial nerves II-XII grossly intact Psych/Mental Status: Normal Affect, Appropriate Vital Signs Temp Pulse Resp BP Pulse Ox 97.7 F L 78 16 130/89 H 100 11/01/18 11:22 11/01/18 11:22 11/01/18 11:22 11/01/18 11:22 11/01/18 11:22 Oxygen Delivery Method Room Air Weight: 145 lb 11.185 oz Body Mass Index (BMI) 25.0 Intake and Output for Last 24 Hours 10/30/18 10/31/18 11/01/18 23:59 23:59 23:59 Intake Total 871 / 871 4493 / 4493 666 / 666 Output Total 1100 / 1100 3100 / 3100 Balance -229 / -229 1393 / 1393 666 / 666 Code Visit Inpatient E&M: 01217 Disch Hosp
--- NOTE | 2018-11-01 15:19 | PCM.PN.SRG ---
Subjective: pain free - Physical Exam General: Alert, Oriented x3, Cooperative Lungs: Clear to auscultation, Normal air movement Cardiovascular: Regular rate, No murmurs Abdomen: Bowel Sounds Present, Soft, Non Tender Vital Signs Temp Pulse Resp BP Pulse Ox 97.7 F L 78 16 130/89 H 100 11/01/18 11:22 11/01/18 11:22 11/01/18 11:22 11/01/18 11:22 11/01/18 11:22 Oxygen Delivery Method Room Air Weight: 66.088 kg Body Mass Index (BMI) 25.0 Intake and Output for Last 24 Hours 10/30/18 10/31/18 11/01/18 23:59 23:59 23:59 Intake Total 871 / 871 4493 / 4493 666 / 666 Output Total 1100 / 1100 3100 / 3100 Balance -229 / -229 1393 / 1393 666 / 666 Medical Necessity - Tobacco Use Smoking Status: Never smoker Tobacco Use: Non-smoker Assessment/Plan All Active Problems Diverticulitis of sigmoid colon (Acute) recurring diverticulitis now improved with IV antibiotics. Uncomplicated based on CT scan. Given the fact that the patient had 10 days of abdominal pain which did not improve on Augmentin, I would recommend at least 24 hours of additional IV antibiotics even though she has a normal white blood cell count and her pain is improved significantly area the patient discussed how she dislikes the Cipro Flagyl combination but given the fact that she failed to improve on Augmentin I recommended she be discharged to home on Cipro and Flagyl. She prefers Augmentin. We will try, if this fails, will try Cipro/Flagyl We discussed that once the patient is discharged I would plan to see her in the office in one week to assure her symptoms improved. I then recommend her following up with me in 4 weeks to plan for outpatient colonoscopy. At that visit we can discuss whether she would like to undergo sigmoid resection for recurring diverticulitis or would like to try to avoid this if possible given the fact that her events while increasing in frequency have not been complicated
== END 2018-11-01 11:45 | disposition home or self-care (01) | DRG 392 ==
LOC: ED 16:20 → MS3 19:00
PROVIDERS: Admitting Provider Internal Medicine; Emergency Provider Emergency Medicine; Family Provider Family Medicine; PCP Family Medicine; Referring Provider Internal Medicine; Visit Provider Internal Medicine
DX: K57.32 Diverticulitis of large intestine without perforation or abscess without bleeding (principal)
CPT/HCPCS: 36415; 74177; 80048; 85025; 99285; J7030; Q9967; A4216; J0744; J2405

== ENCOUNTER 2019-02-02 05:44 | Inpatient (IN) | payer OTHER, SELFPAY ==
--- NOTE | 2019-01-04 20:00 | PCM.HP.BLA ---
History and Physical Date of Admission: 02/02/19 HISTORY AND PHYSICAL - COLON RESECTION FOR?DIVERTICULITIS ? Hanny Prado 1970 January 04, 2019 ? REFERRING PHYSICIAN: ??Elder Argueta MD ? CHIEF COMPLAINT:??Diverticulitis ? HPI: The patient is a 49 year old female with a complaint of?recurring diverticulitis.?? ? The patient presented to [facility] on October 31, 2018 with a complaint of left lower quadrant pain. ?She was started on Augmentin as an outpatient 10 days prior to admission but felt she was failing to improve her symptomatology. ?She presented to [facility] and that date. ?She was found on evaluation in the emergency department to have a normal white blood cell count. ?CT scan of the abdomen and pelvis was obtained which demonstrated inflammation in the sigmoid region without signs of complicated diverticulitis. ?The patient was admitted and started on IV Zosyn. ?She did well on IV Zosyn and was transitioned back to oral antibiotics and discharged to home. ? The patient has a history of which she believes are approximate 7 episodes of diverticulitis. ?She had been referred to [facility] and Dr. Loya 4?years previously?previously. ?They have decided against colon resection at that time?since she hadn't had multiple episodes and these responded to antibiotics. ? The patient had undergone previous colonoscopy 5 years prior in [place] for what apparently demonstrated diverticulosis without other abnormalities. ? The patient returns to the office?in October. ?She notes some loose stools with a small streak of blood. ?She notes a degree of mild achiness in the left lower quadrant but relatively mild discomfort and feels that overall her symptoms are improving. ?She was given a dose of Diflucan for oral candidiasis and is currently feeling better. ? She returns now with plans for colonoscopy in mid January likely followed by sigmoid resection the following day but the patient still has possibly some reluctance to actual surgical intervention and wishes to make her final determination following endoscopy. ? The patient is being seen by me today at the request of Dr.?Elder Argueta MD?for my opinion and advice regarding recurring diverticulitis.? ? PAST?MEDICAL?HISTORY PAST MEDICAL HISTORY Diagnosis Date ? Diverticulitis large intestine w/o perforation or abscess w/o bleeding ? PAST?SURGICAL?HISTORY PAST SURGICAL HISTORY Procedure Laterality Date ? PAST SURGICAL HISTORY OF ? ? ? 2 ? PAST SURGICAL HISTORY OF ? ? ? Uterine Ablation for heavy menstrual cycle ? ? ? CURRENT?MEDICATIONS Current Outpatient Medications Medication Sig Dispense Refill ? peg 3350-Electrolytes (GOLYTELY) 236-22.74-6.74 -5.86 gram suspension Take 4,000 mL by mouth one time only for 1 dose. Refer to printed prep instructions from your doctor. 1 Bottle 0 ? neomycin 500 mg tablet Take 2 tablets by mouth four times daily. 2 TABLETS AT 6, 8 ,AND 10 PM 6 tablet 0 ? metroNIDAZOLE (FLAGYL) 500 mg tablet Take 1 tablet by mouth three times daily. 2 TABLETS AT 6, 8, AND 10 PM 6 tablet 0 ? L. RHAMNOSUS GG/INULIN (CULTURELLE PROBIOTICS ORAL) Take ?by mouth. ? ? ? Amoxicillin 500 mg tablet Take 500 mg by mouth three times daily. ? ? ? No current facility-administered medications for this visit.? ? ? ALLERGIES:?Morphine ? PERSONAL HISTORY:? SOCIAL?HISTORY Social History ??Socioeconomic History ?Marital status: Single ?Spouse name: Not on file ?Number of children: Not on file ?Years of education: Not on file ?Highest education level: Not on file ??Social Needs ?Financial resource strain: Not on file ?Food insecurity - worry: Not on file ?Food insecurity - inability: Not on file ?Transportation needs - medical: Not on file ?Transportation needs - non-medical: Not on file ??Occupational History ?Not on file ??Tobacco Use ?Smoking status: Never Smoker ?Smokeless tobacco: Never Used ??Substance and Sexual Activity ?Alcohol use: No ?Drug use: Not on file ?Sexual activity: Not on file ??Other Topics ?Concerns: ?Not on file ??Social History Narrative ?Not on file ?? ? FAMILY HISTORY:? FAMILY?HISTORY FAMILY HISTORY Problem Relation Age of Onset ? other (a fib) Mother ? ? other (heart stent) Father ? ? Colon Cancer Maternal Aunt ? ? ? REVIEW OF SYMPTOMS: ??The review of systems data was entered by the nurse and reviewed by me ? There are no exam notes on file for this visit. Nursing Notes: Margret Verena HILLS ?11/09/2018 ?1:05 PM ?Signed REVIEW OF SYSTEMS: ?General:???The patient denies fatigue, denies weight loss, denies weight gain, denies feeling hot, and denies feelings of cold. ?Eyes: ?The patient denies glaucoma, denies eye injury/surgery, wears glasses or contacts. ?Ear/Nose/Throat: ?The patient denies allergies, denies hayfever, denies ear infections, and denies bloody noses. ?Cardiovascular: ?The patient denies chest pain, denies heart disease, denies high blood pressure,denies cardiac stent, denies prior heart attack, denies irregular heart beat, denies high cholesterol, ?denies poor circulation, denies heart failure, other cardiac issues, denies claudication, denies cold feet, denies peripheral arterial stent. ?Respiratory: ?The patient denies tuberculosis, denies pneumonia, denies frequent cough, denies pulmonary embolism, denies shortness of breath, and denies coughing up blood. ?Gastrointestinal: ?The patient denies difficulty swallowing, NOTES acid reflux, denies ulcers, denies vomiting, denies jaundice/hepatitis, denies gallbladder problems, denies black or tarry stools, denies hemorrhoids, denies bleeding from rectum, NOTES diverticulitis, NOTES constipation, NOTES diarrhea, denies loss of stool control, and denies hernias. ?Kidney/Bladder: ?The patient NOTES kidney stones, denies urine infections, and denies bloody urine. ?Skin: ?The patient denies a history of skin cancer, denies bleeding/changing moles, and denies a history of skin rash. ?Neurologic: ?The patient denies a history of epilepsy/convulsions, denies headaches, denies head/spinal injuries, and denies stroke/TIA. ?Psychiatric: ?The patient denies psychiatric medications, denies depression, and denies voices, denies substance abuse. ?Endocrine: ?The patient denies thyroid disorders, denies diabetes, and denies hormonal problems. ?Hematologic: ?The patient denies a history of bruising, denies bleeding, and denies anemia, denies blood clots. ?Infections: ?The patient denies a history of measles and mumps, denies rheumatic fever, and denies sexually transmitted diseases. ?Musculoskeletal: ?The patient denies back pain/injury, denies back problems, denies sciatica, denies knee/foot trouble, denies arthritis, or denies gout. ? ? When was patient's last Mammogram screening? 2018 ? ? ? PHYSICAL EXAMINATION: ? General: ?The patient is 49 year old female, well nourished, well hydrated in no acute distress. ?The patient is oriented to time, place, and person. ? VITALS:?Wt 64.9 kg (143 lb) ? BMI 24.55 kg/m? ?Body mass index is 24.55 kg/m?.? ? HEENT: ?Normal cephalic, ataumatic, pupils are equally round, sclera are anicteric, mucous membranes are moist, oropharynx is clear. ?Neck has no masses, asymmetry or lymphadenopathy. ?Thyroid is unremarkable. ? Respiratory: ?Clear to auscultation and percussion. ?Normal respiratory excursion and pattern. ? Cardiac: ?Examination is regular rate and rhythm. ? Abdominal exam: ?Soft, nontender, ?with no palpable masses. ?No hepatosplenomegaly. ?No palpable hernias. ? Rectal exam: ?exam deferred ? Extremities: ?no clubbing, cyanosis or edema. ?No adenopathy. ? LABORATORY VALUES: As Noted ? RADIOLOGIC STUDIES: ?As Noted ? Assessment ? IMPRESSION:?Recurring diverticulitis ? PLAN: ? We extensively discussed the diagnosis and discussed the surgical options. ??The patient has elected to undergo colon resection ? I plan to perform a?Laparoscopic Low Anterior Resection - [id number]. ?The planned surgical procedure was discussed extensively with the patient. ?The risks, benefits, anticipated outcomes and possible complications and alternatives were discussed. ?My staff has also explained the procedure in understandable terms and the patient was given the option to take printed material concerning the planned procedure. ?The patient had the opportunity to ask questions concerning the planned procedure. ?The patient freely consents to the planned procedure. ?? ? I will plan for?outpatient bowel preparation including mechanical?2 days prior to the planned procedure. ?I will then plan for outpatient colonoscopy the day prior to procedure. ???We discussed the risks and benefits of the planned endoscopy. ?I have informed the patient that complications can occur including failure to complete the endoscopy and perforation. ?The patient had the opportunity to ask questions concerning the planned endoscopy. ?My staff has also explained the procedure to the patient in understandable terms and has given the patient printed material concerning the procedure. ?The patient freely consents to surgery. ? antibiotic preparation including Neomycin and Flagyl 1gm each at 6,8, and 10pm the night before surgery. ? Diagnoses:?(K57.92) Diverticulitis ?(primary encounter diagnosis) ? A letter was sent to Dr.?Elder Argueta MD?indicating the above finding for this patient. ? Return to Clinic: The patient is instructed to follow-up with me?1 week post operatively. ? Jomar Batista MD
[2019-02-02] VITALS (12 sets, daily range): BP systolic 101–129; BP diastolic 69–85; PULSE 71–87; RESP 16–18; TEMP 36.3–37; O2SAT 98–100; BMI 23.9; BMI 23.6
--- NOTE | 2019-02-02 05:58 | EKG12_ITS ---
Test Reason : PRE OP Blood Pressure : / mmHG Vent. Rate : 092 BPM Atrial Rate : 092 BPM P-R Int : 130 ms QRS Dur : 074 ms QT Int : 364 ms P-R-T Axes : 054 074 069 degrees QTc Int : 450 ms Normal sinus rhythm Nonspecific ST abnormality Abnormal ECG When compared with ECG of 26-DEC-2011 16:45, No significant change was found Confirmed by JUVE BELTRAN, YONATAN ([id number]), editor news ROBERT CERDA ([id number]) on 02/04/2019 2:02:08 PM Referred By: Jomar Batista Confirmed By:SHAISTA AN MD
[2019-02-02 06:20] LABS: Internal QC Validated? YES +Cl - CLEAR BKGD; Pregnancy, Urine Negative Negative
[2019-02-02] MEDS: Acetaminophen 500 MG Tablet 1000 MG PO ×4 (06:30→23:29)
[2019-02-02] MEDS: Gabapentin 600 MG Tablet PO (06:30)
[2019-02-02] MEDS: Magnesium Sulfate 4gm/100mL 4 GM/100 ML IV.SOLN. IV (06:40)
[2019-02-02] MEDS: Lactated Ringers 1,000 ML 40 ML IV ×2 (06:40→22:39)
[2019-02-02 06:41] LABS: Bedside Glucose 94 mg/dL (70-110)
--- NOTE | 2019-02-02 07:15 | COL_PTH ---
PATIENT: MARTIN YU LOC: MS3 U#:[id number] AGE/SX: 49/F ROOM: NC324 RE02/02/[address]: Dr. Jomar Batista MD : 1970 BED: 1 DIS: 02/04/2019 SPEC #: [id number] RECD: 02/02/19 11:20 STATUS: KERON REQ #: [id number] TITO: 02/02/19 07:[address]: Jomar Batista DEPT: SURGICAL PATHOLOGY RECD BY: Kristopher Ontiveros ENTERED: 02/02/19 12:37 SP TYPE: COLON OTHR DR: MD Elder Murphy MD Tissues: A - Colon, NOS B - Appendix, NOS C - Colon Donuts D - Colon Donuts Procedures: Surgery Specimen Level III Surgery Specimen Level V HEADER OPERATION: ERAS, laparoscopic sigmoid colectomy, appendectomy PRE-OP DIAGNOSIS: Diverticulitis TISSUE SUBMITTED: A - Sigmoid colon, B - Appendix, C - Proximal donut, D - Distal donut MICROSCOPIC DIAGNOSIS A. Sigmoid colon, colectomy: Diverticulosis. Pericolonic adipose tissue with one minute lymph node with reactive changes. B. Appendix, appendectomy: Appendix, no pathologic diagnosis. C. Proximal colon donut: Colonic donut, no pathologic diagnosis. D. Distal colon donut: Colonic donut with focal mucosal congestion and hemorrhage. JUWAN:tierney 02/04/19 MICROSCOPIC DESCRIPTION Slides are reviewed. GROSS DESCRIPTION A - Received in fixative is one container labeled with the patient's name and designated sigmoid colon. The specimen consists of a segment of colon with attached pericolonic adipose tissue measuring 16 cm in length. One resection margin is open and other resection margin is stapled. The lumen contains fecal material. No mucosal lesion is identified. Sections reveal multiple diverticula. More sections and more dictation will follow after overnight fixation. / : 02/02/19 Sections do not reveal any obviously ruptured diverticula. The pericolonic adipose tissue sections along with adipose tissue do not reveal any obviously enlarged lymph nodes. Band Aid Machine Operator sections are submitted as follows: 1 - resection margin, stapled resection margin inked black, 2-4 - diverticula, 5 - pericolonic adipose tissue / :tierney 02/03/19 B - Received is one container labeled with the patient's name and designated appendix. The specimen consists of an appendix measuring 5 cm in length and up to 0.6 cm in diameter. The attached periappendiceal adipose tissue measures 1.2 cm in width. The serosal surface is greenfield, glistening. No obvious perforation is identified. The lumen contains a small amount of fecal material. No fecalith is identified. Band Aid Machine Operator sections are submitted in one cassette. / SJ:tierney 02/02/19 C - Received in fixative is one container labeled with the patient's name and designated proximal colon donut. The specimen consists of a donut-shaped piece of colonic tissue measuring 2 x 1.7 x 0.5 cm. Multiple sutures are noted. Band Aid Machine Operator sections are submitted in one cassette. / SJ:tierney 02/02/19 D - Received in fixative is one container labeled with the patient's name and designated distal colon donut. The specimen consists of a donut-shaped piece of colonic tissue measuring 1.8 x 1.5 x 0.3 cm. The specimen is bisected and submitted entirely in one cassette. / SJ:tierney 02/02/19 TC:5 CPT: 19023 x3, 16545
[2019-02-02] MEDS: Lubricating Jelly 60 GM Tube 30 GM TOPICAL (07:50)
[2019-02-02] MEDS: Lidocaine/D5W 2,000 MG/250 ML IV.SOLN 18.96 MG IV (08:05)
[2019-02-02] MEDS: Bupivacaine 0.25% 30 ML Vial (10:24)
[2019-02-02] MEDS: BUPIVACAINE LIPOSOME/PF 20 ML VIAL OPERA.SITE (10:30)
--- NOTE | 2019-02-02 10:41 | OP.PCM_ITS ---
Report of Operation Date of Procedure: 02/02/19 Pre-Operative Diagnosis: recurrent sigmoid diverticulitis Post-Operative Diagnosis: recurrent sigmoid diverticulitis, intact donuts Surgery/Procedure Performed:: laparoscopic low anterior resection, laparoscopic appendectomy human resource advisor: Bernardo Cabrera Type of Anesthesia:: General Anesthesiologist: Anant Donnelly - ASA2 Specimen's removed: rectosigmoid appendix, proximal donut, distal donut Drains: Urine -180 Estimated Blood Loss (mL): 44.4 Fluids Replaced: 1000 Description of Procedure: The patient was brought to the operating suite. Sign in was performed verifying patient, site, procedure, position, and DVT prophylaxis with SCDs. Patient received Cefotetan 2gm. Preoperative bowel prep of mechanical and antibiotic comprised of GoLYTELY and then neomycin and Flagyl 1 g 3 doses evening before was given. Following induction of general anesthetic, the patient was placed in a modified lithotomy position and care being taken to or by pressure points in the legs and arms. An upper body strap was placed and a upper body warmer was placed. A Najera catheter was placed. A rectal washout was performed with dilute Betadine solution. The patient?s abdomen and perineal area were then prepped and draped in the usual fashion. Timeout was performed verifying patient, site, position. Local anesthetic was injected above the umbilicus. Incision made and dissection carried down to the umbilical root fascia. 2 stay sutures were placed. Incision made in the fascia, the peritoneum entered under direct visualization. A 10 mm Khan trocar was inserted and secured with the stay sutures. Pneumoperitoneum to 15 mmHg was insufflated. 2 5mm ports were placed in the midline and a 10/12 port were placed in the right lower quadrant inferior laterally. Adhesions were taken down using Harmonic scalpel. Visual inspection revealed a normal-appearing liver with no significant abnormalities. The sigmoid colon with adhesions to both the left lateral peritoneal reflection and the omentum were noted. These adhesions were taken down sharply and using the Harmonic scalpel. mobilization of the colon was performed up to and just around the level splenic flexure without full splenic flexure mobilization. The descending colon and colon mesentery mobilized off Gerota's fascia. Once this left-sided mobilization was undertaken, a window was made in to the bare area just proximal to the inferior mesenteric vessels As dissection was continued, the JAM branches were identified and ligated with 5 mm hemoclips and divided with the Harmonic scalpel. Once this was fully divided and surrounded with dissection carried down to the area posterior to the rectum, a 60 mm echelon stapler with a thick load was placed and fired to transect the rectum. A second load was required. I performed an appendectomy dividing the mesoappendix with the Harmonic scalpel and the base of the appendix with the regular load stapler. The appendix was removed the right lower quadrant port site. With full dissection of the mesentery and full mobilization the colon, the umbilical incision was extended and a wound protector placed. The sigmoid colon were delivered through the wound protector. At this point at the planned transection point of the proximal sigmoid colon, the pericolonic were fully mobilized to the margin of the bowel using the harmonic scalpel. The bowel was transected cleanly with a 10 blade scalpel. A 29 mm CEA circular stapler anvil was then placed in the descending colon region and a 2-0 Prolene pursestring suture was used to close the bowel around the anvil. At this point, I proceeded down to the rectum. Rigid proctoscopy was performed after flooding the pelvis with saline. Insufflation demonstrated no leak at the rectal staple line. The staple line was measured to be approximately 12 cm. Next the 29 CEA stapler was lubricated and placed through the rectum up to the staple line. The spike was then opened just anterior to the previous echelon stapler line and the anvil properly seated onto the stapler and brought down to mid gap. The stapler was fired released and withdrawn from the rectum. The proximal and distal doughnuts were noted to be intact. Repeat proctoscopy was again performed again with the pelvis being flooded with saline. Air left in the rectum with insufflation and there was no intra-abdominal leakage noted. The anastomosis was noted to be at 12 cm from the anal verge Gown and gloves were changed. Pneumoperitoneum was released and the umbilical incision was closed with running 0 PDS sutures with the 2 sutures meeting and closed just above the umbilicus. Pneumoperitoneum was reestablished. The right lower quadrant fascial defect was closed with a running 0 PDS suture. Visual inspection revealed no material adhered to the midline closure. regional blocks with Expirel diluted with saline to 100 cc total volume was injected for regional block next to all incisions under laparoscopic guidance. A total of approximately 80% of the total volume of local anesthetic was injected. The 5mm ports were removed under direct visualization with no signs of bleeding. Pneumoperitoneum was released. Right lower quadrant fascial suture was secured. Subcutaneous tissue at the level of the umbilicus reapproximated with interrupted 3-0 Vicryl sutures. Skin was closed with interrupted and running 4- 0 Monocryl subcuticular sutures. Steri-Strips and bandages were applied. The patient was taken from lithotomy position and placed in the standard supine position. The Najera was removed. All sponge and instrument counts were correct. The patient was extubated. The patient was brought to recovery room in stable condition. - Admit VTE Documentation VTE Present on Admission: No VTE Mechan Device Prophylaxis: SCD's VTE Pharm Prophylaxis ordered?: No
[2019-02-02] MEDS: Ketorolac 15 MG/ML Vial IV ×3 (12:00→23:30)
[2019-02-02] MEDS: oxyCODONE 5 MG Tablet PO (13:39)
[2019-02-02] MEDS: Ondansetron ODT 4 MG Tablet PO ×2 (17:26→17:27)
[2019-02-02] MEDS: Docusate Sodium 100 MG Capsule PO (22:39)
[2019-02-03] MEDS: oxyCODONE 5 MG Tablet PO (04:21)
[2019-02-03 04:22] VITALS: BP 122/74; PULSE 92; RESP 16; TEMP 37.2; O2SAT 97
[2019-02-03] MEDS: Ketorolac 15 MG/ML Vial IV ×3 (06:07→17:29)
[2019-02-03] MEDS: 0.9% NaCl Peripheral Flush Adult/Peds IV ×2 (06:32)
[2019-02-03] MEDS: Acetaminophen 500 MG Tablet 1000 MG PO ×4 (06:32→23:47)
[2019-02-03 06:46] LABS: Anion Gap 9 (5-15); BUN 5 mg/dL (7-18); BUN/Creat Ratio 7.8 RATIO (10-20); Calcium,Total 8.2 mg/dL (8.5-10.1); Chloride 107 mmol/L (98-107); Creatinine, Serum 0.64 mg/dL (0.55-1.02); EST Glomerular Filtration Rate 104 mL/min (>60); Est Glom Filt Rate - Afr Amer 126 mL/min (>60); Estimated Creatinine Clearance 90.81 ml/min; Glucose 85 mg/dL (74-106); Potassium 3.9 mmol/L (3.5-5.1); Sodium Level 141 mmol/L (136-145)
[2019-02-03 06:50] LABS: Hematocrit 39.9 % (37-47); Hemoglobin 13.4 g/dL (12.0-15.0); Mean Corp Hgb Conc 33.6 g/dL (32-36); Mean Corpuscular Hgb 30.2 pg (27.0-32.0); Mean Corpuscular Volume 89.9 fL (81-99); Mean Platelet Vol. 10.4 fl (6.2-12.0); Platelet Count 227 K/mm3 (150-450); RBC Distribution Width CV 12.5 % (11.6-14.6); RBC Distribution Width SD 40.6 fl (35.1-43.9); Red Blood Count 4.44 M/mm3 (4.2-5.4)
--- NOTE | 2019-02-03 07:16 | PCM.PN.SRG ---
Subjective: POD # 1 - incisional pain around abdomen - Physical Exam General: Alert, Oriented x3, Cooperative Lungs: Clear to auscultation, Normal air movement Cardiovascular: Regular rate, No murmurs Abdomen: Bowel Sounds Present, Soft, Tender - at incisions Vital Signs Temp Pulse Resp BP Pulse Ox 98.9 F 92 16 122/74 H 97 18 04:22 02/03/19 04:22 02/03/19 04:22 02/03/19 04:22 02/03/19 04:22 Oxygen Flow Rate (L/min) 6 Oxygen Delivery Method Room Air Weight: 62.293 kg Body Mass Index (BMI) 23.6 Intake and Output for Last 24 Hours 02/01/02/02/19 02/03/19 23:59 23:59 23:59 Intake Total 1740 / 2127 1053 / 1053 Output Total 1400 / 1400 Balance 1740 / 1527 -347 / -347 Laboratory Tests Past 24 Hrs 18/18 06:08 06:08 WBC 16.0 H RBC 4.44 Hgb 13.4 Hct 39.9 MCV 89.9 MCH 30.2 MCHC 33.6 RDW Std Deviation 40.6 RDW Coeff of Onelia 12.5 Plt Count 227 MPV 10.4 Sodium 141 Potassium 3.9 Chloride 107 Carbon Dioxide 25.0 Anion Gap 9 BUN 5 L Creatinine 0.64 Estim Creat Clear Calc 90.81 Est GFR (MDRD) Af Amer 126 Est GFR (MDRD) Non-Af 104 BUN/Creatinine Ratio 7.8 L Glucose 85 Calcium 8.2 L Medical Necessity - Tobacco Use Smoking Status: Never smoker Assessment/Plan All Active Problems Diverticulitis of sigmoid colon (Acute) POD # 1 s/p laparoscopic low anterior resection and laparoscopic appendectomy for recurring sigmoid diverticulitis patient with some incisional pain. We'll treat with oral and parenteral medications as needed. bowel sounds present, no flatus-we'll continue clear liquids until flatus is present. Patient encouraged to chew gum Will encourage ambulation and incentive spirometry.
[2019-02-03 09:37] VITALS: BP 110/73; PULSE 75; RESP 18; TEMP 37.1; O2SAT 100
[2019-02-03] MEDS: Docusate Sodium 100 MG Capsule PO ×2 (09:48→20:12)
[2019-02-03 11:07] VITALS: O2SAT 100
--- NOTE | 2019-02-03 11:10 | CASEMGMT ---
RN LUKE Face to Face with patient for initial transition planning/care coordination assessment. RN CM introduced self and role at [facility]. Patient lying in bed, alert and oriented. Patient willing to participate in assessment and is able to answer all questions appropriately. Care providers, pharmacy, and demographics verified. Patient wishes to discharge home, denies need for home health at this time. Patient states she has no further needs or concerns at this time. CM to follow for discharge planning needs that may arise. PCP: Kendall Specialists: Lynne Ricks Pharmacy: [facility] Insurance: MMO Prescription Benefit: yes Living Will/HPOA: yes, Willie Prado LNOK: Living Arrangements: Patient lives with family in a house, patient is independent at home. Transportation: self/family DME/HHC: Patient denies previous HHC or DME. Disposition Plan: Patient to discharge home with family support and follow-up plans in place. Shantel TALAVERA, RN, CM
[2019-02-03] MEDS: Ensure Clear 120 ML Liquid PO ×3 (11:20→17:28)
[2019-02-03 14:37] VITALS: BP 109/69; PULSE 76; RESP 18; TEMP 37.1; O2SAT 100
[2019-02-03 20:01] VITALS: BP 113/79; PULSE 76; RESP 16; TEMP 37.3; O2SAT 100
[2019-02-03 20:15] VITALS: PULSE 76; RESP 16; O2SAT 100
[2019-02-04] MEDS: oxyCODONE 5 MG Tablet PO ×2 (01:32→12:54)
[2019-02-04 01:58] VITALS: BP 113/75; PULSE 68; RESP 16; TEMP 36.6; O2SAT 99
[2019-02-04 05:39] LABS: Absolute Lymphocyte Count 1.62 X10^3/uL (0.83-4.51); Absolute Neutrophil Count 7.5 X10^3/uL (2.0-7.7); Basophil# 0.02 X10^3/uL; Basophil% 0.2 % (0-1); Eosinophil# 0.07 X10^3/uL; Eosinophils% 0.7 % (0-5); Hematocrit 36.7 % (37-47); Hemoglobin 12.2 g/dL (12.0-15.0); Lymphocyte # 1.62 X10^3/ul (4.0); Lymphocyte % 16.8 % (19-41); Mean Corp Hgb Conc 33.2 g/dL (32-36); Mean Corpuscular Hgb 30.1 pg (27.0-32.0); Mean Corpuscular Volume 90.6 fL (81-99); Mean Platelet Vol. 9.9 fl (6.2-12.0); Monocyte# 0.44 X10^3/uL; Monocyte% 4.6 % (0-10); NRBC Flagged by Analyzer 0 % (0-5); Neutrophil # 7.46 X10^3/uL (2.7-7.7); Neutrophil % 77.5 % (47-70); Platelet Count 197 K/mm3 (150-450); RBC Distribution Width CV 12.7 % (11.6-14.6); Red Blood Count 4.05 M/mm3 (4.2-5.4); White Blood Count 9.6 K/mm3 (4.4-11.0)
[2019-02-04] MEDS: Acetaminophen 500 MG Tablet 1000 MG PO (06:33)
--- NOTE | 2019-02-04 06:48 | DCINST_ITS ---
Discharge Diet: Light diet - advance as tolerated Discharge Activity: Return to Normal Activity, May Not Drive - while taking narcotic pain medications. Additional Activity Instructions:: Do not drive or work with heavy equipment or sign legal documents for 24 hours. Be aware that pain medications may cause na usea. You should typically eat light foods as you take your pain medications. Pain medications may also cause constipation, if you have difficulty with this please discuss with your doctor. Allergies/Adverse Reactions: Allergies morphine Allergy (Verified 01/27/19 12:08) Shortness of breath anxiety, chest tightness, tachycardia, tingling in fingers, sob Medications to take at Discharge Acetaminophen [Tylenol] 1,000 mg PO Q6 tablet 02/04/19 Oxycodone HCl/Acetaminophen [Percocet 5/325] 1 tab PO Q4H PRN PRN 5 Days #12 tab 02/04/19 The following prescriptions were given: Oxycodone HCl/Acetaminophen [Percocet 5/325] 1 tab PO Q4H PRN PRN 5 Days #12 tab PRN Reason: Pain Prescription Printed Primary Care Physician: Elder Argueta MD [Primary Care Provider] - Test Results: Test results from this visit will be discussed in further detail at your follow-up appointment, if applicable. Please Follow Up With: Jomar Batista MD - [phone] When: Plan to have a follow up approximately 7 days after surgery.
[2019-02-04 07:34] VITALS: O2SAT 98
[2019-02-04 07:54] VITALS: BP 104/73; PULSE 75; RESP 16; TEMP 36.6; O2SAT 99
[2019-02-04] MEDS: Docusate Sodium 100 MG Capsule PO (09:55)
--- NOTE | 2019-02-04 11:04 | DS.PCM_ITS ---
Discharge Date and Diagnosis Date of Admission: 02/02/19 Date of Discharge: 02/04/19 - Primary Discharge Diagnosis recurrent diverticulitis - Secondary Discharge Diagnosis Chronic Problems Diverticulitis large intestine (Chronic) Hospital Course and Treatment Operations: None, colectomy - laparoscopic sigmoid/low anterior resection Summary of Care Provided: The patient is a 49 year old F with recurring episodes of sigmoid diverticulitis. She presented to [facility] for a laparoscopic low anterior/sigmoid resection. The patient did well on the ERAS protocol had return of bowel function postoperatively 1 and was ready for discharge on postoperative day 2. - Physical Exam General: Alert, Oriented x3, Cooperative Lungs: Clear to auscultation, Normal air movement Cardiovascular: Regular rate, No murmurs Abdomen: Bowel Sounds Present, Soft, Non Tender Vital Signs Temp Pulse Resp BP Pulse Ox 97.9 F 75 16 104/73 99 02/04/19 07:54 02/04/19 07:54 02/04/19 07:54 02/04/19 07:54 02/04/19 07:54 Oxygen Flow Rate (L/min) 6 Oxygen Delivery Method Room Air Weight: 62.293 kg Body Mass Index (BMI) 23.6 Intake and Output for Last 24 Hours 02/02/19 02/03/19 02/04/19 23:59 23:59 23:59 Intake Total 1740 / 2127 3903 / 4823 1450 / 1450 Output Total 4650 / 5350 850 / 850 Balance 1740 / 1527 -747 / -527 600 / 600 Laboratory Tests Past 24 Hrs 02/04/19 05:25 WBC 9.6 RBC 4.05 L Hgb 12.2 Hct 36.7 L MCV 90.6 MCH 30.1 MCHC 33.2 RDW Std Deviation 42.0 RDW Coeff of [place]elia 12.7 Plt Count 197 MPV 9.9 Immature Gran % (Auto) 0.200 Neut % (Auto) 77.5 H Lymph % (Auto) 16.8 L Allen % (Auto) 4.6 Eos % (Auto) 0.7 Baso % (Auto) 0.2 Absolute Neuts (auto) 7.5 Absolute Lymphs (auto) 1.62 Absolute Nucleated RBC 0.00 Nucleated RBC % 0 Discharge Diet: Light diet - advance as tolerated Discharge Activity: Return to Normal Activity, May Not Drive - while taking narcotic pain medications. Additional Activity Instructions:: Do not drive or work with heavy equipment or sign legal documents for 24 hours. Be aware that pain medications may cause nausea. You should typically eat light foods as you take your pain medications. Pain medications may also cause constipation, if you have difficulty with this please discuss with your doctor. Home Medications: Medications to take at Discharge Acetaminophen [Tylenol] 1,000 mg PO Q6 tab 02/04/19 Oxycodone HCl/Acetaminophen [Percocet 5/325] 1 tab PO Q4H PRN PRN 5 Days #12 tab 02/04/19 Following Prescrptions Were Given to Patient: Oxycodone HCl/Acetaminophen [Percocet 5/325] 1 tab PO Q4H PRN PRN 5 Days #12 tab PRN Reason: Pain Prescription Printed Primary Care Physician: Elder Argueta MD [Primary Care Provider] - Please Follow Up With: Jomar Batista MD - [phone] When: Plan to have a follow up approximately 7 days after surgery. Medical Necessity - Tobacco Use Smoking Status: Never smoker Meaningful Use Info Meaningful Use Diagnoses (Choose all that apply): None applicable
== END 2019-02-04 13:30 | disposition home or self-care (01) | DRG 331 ==
LOC: ACINP 05:45 → MS3 11:33
PROVIDERS: Anesthesiology; Admitting Provider Surgery; Family Provider Family Medicine; PCP Family Medicine; Referring Provider Surgery; Visit Provider Surgery
PROC: 0DTN0ZZ Resection of Sigmoid Colon, Open Approach (ICD-10-PCS; CPT 44204; principal; 2019-02-02 06:50)
DX: K57.32 Diverticulitis of large intestine without perforation or abscess without bleeding (principal)
CPT/HCPCS: 36415; 80048; 81025; 82962; 85025; 85027; 88304; 88307; 93005; J7050; J7120; A4216; J2405

== ENCOUNTER → 2019-07-29 08:50 | Outpatient (CLI) | payer OTHER, SELFPAY ==
[2019-02-02 12:58] VITALS: BMI 23.6
[2019-07-29 10:34] LABS: Absolute Lymphocyte Count 1.34 X10^3/uL (0.83-4.51); Absolute Neutrophil Count 3.6 X10^3/uL (2.0-7.7); Basophil# 0.02 X10^3/uL; Basophil% 0.4 % (0-1); Eosinophil# 0.05 X10^3/uL; Eosinophils% 0.9 % (0-5); Hematocrit 44.4 % (37-47); Hemoglobin 14.6 g/dL (12.0-15.0); Lymphocyte # 1.34 X10^3/ul (4.0); Mean Corp Hgb Conc 32.9 g/dL (32-36); Mean Corpuscular Hgb 29.2 pg (27.0-32.0); Mean Corpuscular Volume 88.8 fL (81-99); Mean Platelet Vol. 10.4 fl (6.2-12.0); Monocyte# 0.32 X10^3/uL; NRBC Flagged by Analyzer 0 % (0-5); Neutrophil # 3.62 X10^3/uL (2.7-7.7); Neutrophil % 67.5 % (47-70); Platelet Count 222 K/mm3 (150-450); RBC Distribution Width CV 12.5 % (11.6-14.6); RBC Distribution Width SD 40.5 fl (35.1-43.9); White Blood Count 5.4 K/mm3 (4.4-11.0)
[2019-07-29 11:08] LABS: Erythrocyte Sedimentation Rate 12 mm/hr (0-30)
[2019-07-29 11:31] LABS: AST(SGOT) 14 U/L (15-37); Alanine Aminotransfer ALT/SGPT 20 U/L (13-56); Albumin, Serum 3.8 g/dL (3.2-5.0); Alkaline Phosphatase 61 U/L (45-117); Anion Gap 3 (5-15); BUN 7 mg/dL (7-18); BUN/Creat Ratio 9.9 RATIO (10-20); CRP, High Sensitivity Cardiac 1.17 mg/L; Calcium,Total 9.1 mg/dL (8.5-10.1); Chloride 105 mmol/L (98-107); Creatinine, Serum 0.71 mg/dL (0.55-1.02); EST Glomerular Filtration Rate 93 mL/min (>60); Est Glom Filt Rate - Afr Amer 113 mL/min (>60); GGTP 9 U/L (5-55); Glucose 70 mg/dL (74-106); Potassium 3.5 mmol/L (3.5-5.1); Protein, Total 7.8 g/dL (6.4-8.2); Sodium Level 137 mmol/L (136-145)
== END ==
PROVIDERS: Family Provider Family Medicine; PCP Family Medicine; Referring Provider Family Medicine; Visit Provider Family Medicine
DX: R42 Dizziness and giddiness (principal)
CPT/HCPCS: 36415; 80053; 82977; 85025; 85652; 86141; 87506

== ENCOUNTER 2019-08-06 11:57 | Emergency (ER) | payer OTHER, SELFPAY ==
[2019-02-02 12:58] VITALS: BMI 23.6
[2019-08-06 11:58] VITALS: BP 139/97; PULSE 98; RESP 18; TEMP 36.6; O2SAT 99; BMI 23.0
--- NOTE | 2019-08-06 12:13 | EKG12_ITS ---
Test Reason : LEFT ARM PAIN Blood Pressure : / mmHG Vent. Rate : 081 BPM Atrial Rate : 081 BPM P-R Int : 142 ms QRS Dur : 078 ms QT Int : 356 ms P-R-T Axes : 070 076 056 degrees QTc Int : 413 ms Normal sinus rhythm Nonspecific ST abnormality Abnormal ECG Confirmed by CASSIE BELTRAN, WALE ([id number]), photographic editor ROBERT CERDA ([id number]) on 08/09/2019 9:58:48 AM Referred By: Elder Argueta Confirmed By:WALE MATTHEWS MD
--- NOTE | 2019-08-06 12:22 | ED.DCSUM_ITS ---
History of Present Illness Chief Complaint: General Illness Narrative: Patient presenting for evaluation secondary to bilateral arm tingling. Patient has only underlying history of recurrent diverticulitis with a sigmoid colectomy performed back in January. Patient states that she chronically deals with constipation. She reports that this morning she was taking MiraLAX with her coffee, was seated in a armchair and started to have feelings of arm tingling. Patient reports that it was mainly in her left arm but was somewhat in her right arm. It was associated with a feeling of nausea and dry mouth and increased thirst. Patient states that there were no exacerbating relieving components to this. No lightheadedness palpitations or shortness of breath. She is never really had any prior similar episodes in the past. She thought the potentially was a reaction to the MiraLAX so she drank about 120 ounces of water. She denies any recent infectious signs or symptoms. Review of systems otherwise negative. Past Medical History - Allergies and Home Meds Allergies/Adverse Reactions: Allergies morphine Allergy (Verified 01/27/19 12:08) Shortness of breath anxiety, chest tightness, tachycardia, tingling in fingers, sob Primary Care Physician: Elder Argueta MD [Primary Care Provider] - Past Medical History: None Surgical History: - - Sigmoidectomy Smoking Status: Never smoker - Family History Maternal Family History: Reports: - - Diverticulitis Colon polyps in maternal aunt. Review of Systems All systems negative except as indicated General: Denies: Chills, Fever, Sweats Eyes: Denies: Visual changes - bilaterally, Diplopia ENT: Denies: Rhinorrhea, Sore throat Cardiovascular: Denies: Chest pain, Palpitations Respiratory: Denies: Dyspnea, Cough, Dyspnea on exertion Gastrointestinal: Reports: Nausea Genitourinary: Denies: Dysuria, Hematuria, Frequency Musculoskeletal: Denies: Back pain, Extremity Pain Skin: Denies: Rash, Wounds Neurological: Reports: Parasthesia Physical Exam Vital Signs/Narrative: Vital Signs Temp Pulse Resp BP Pulse Ox 08/06/19 11:58 98 F 98 18 139/97 H 99 Inital Vital Signs reviewed: Yes General: Well nourished, Well developed, No Acute Distress Head: Normocephalic, Atraumatic Eyes: Perrl, EOMI ENT: Moist mucous membranes, No rhinorrhea Neck: Supple, Nontender Cardiovascular: Regular rate, Regular rhythm, No murmurs Respiratory: No distress, CTA bilaterally, Chest nontender Abdomen: Soft, Nontender, Nondistended, Normal bowel sounds Back: Nontender, Normal Inspection Extremities: Nontender, No edema Skin: Normal color, No rash Neurological: Alert, Oriented x3, Cranial nerves II-XII grossly intact, Normal Strength, Normal Sensation Psychological: Normal affect, Normal Mood Diagnostic/Tx/Re-eval - EKG Initial EKG Interpretation: - - Sinus rhythm of [address] changes with somewhat of a baseline wander. Normal MN and QTc intervals. Follow-up EKG Interpretation: - - Repeat EKG demonstrates sinus rhythm at [address] segments normal T waves no evidence of baseline wander, normal MN and QTc i ntervals. - Medical Decision Making Patient presented with an atypical presentation of chest pain. Work-up was obtained including CBC chemistry and troponin that were negative. Patient's initial EKG she had some artifactual wander, and potentially had some ST depression so this was repeated and was found to be completely normal and negative. Patient's heart score is low risk, and is a maximum of 2. A repeat troponin was ordered. Chest x-ray by my personal interpretation as well as radiology shows no evidence of acute cardiopulmonary pathology, no evidence of mediastinal widening. Patient has no personal or family history of connective tissue disease or aneurysms. Repeat EKG was found to be normal. Repeat troponin was found to be negative. Patient did have some improvement with GI cocktail. Given the patient's low risk heart score, negative work-up I believe that she is appropriate for discharge. Patient symptomatology likely is secondary to a GI type source. Patient has follow-up coming with Dr. Denson for upper and lower endoscopy she was encouraged to keep that. ED Disposition - Plan for ED Patient: Disposition: Home or Assisted Living Diagnosis: Chest pain Instructions: CHEST PAIN, NonCardiac Referrals: Jomar Batista MD [STAFF PHYSICIAN] - Keep Brandon appointment
[2019-08-06 12:23] VITALS: O2SAT 98
--- NOTE | 2019-08-06 12:24 | RAD_ITS ---
STUDY: X-RAY CHEST REASON FOR EXAM: Female, 49 years old. Chest and back pain. Left arm tingling. TECHNIQUE: PA and lateral views of the chest. COMPARISON: 12/26/2011 FINDINGS: EKG leads project over the chest. The lungs are clear and expanded. There is no demonstrated pleural abnormality. Normal size heart. Normal mediastinum and carlos. Normal visualized pulmonary arteries. Normal visualized aortic arch and descending thoracic aorta. Normal visualized thoracic spine. Normal visualized ribs, clavicles, and shoulders. There is no demonstrated abnormality of the visualized soft tissue structures of the upper abdomen. RAD/Chest PA and Lateral IMPRESSION: No airspace consolidation or pleural effusion. Electronically Signed: John Cobb MD (Brooks) at 12:51 EST , Service support ,
[2019-08-06 12:46] LABS: Absolute Lymphocyte Count 0.88 X10^3/uL (0.83-4.51); Absolute Neutrophil Count 5.5 X10^3/uL (2.0-7.7); Basophil# 0.04 X10^3/uL; Basophil% 0.6 % (0-1); Eosinophil# 0.07 X10^3/uL; Hematocrit 44.9 % (37-47); Lymphocyte # 0.88 X10^3/ul (4.0); Lymphocyte % 12.8 % (19-41); Mean Corp Hgb Conc 33.4 g/dL (32-36); Mean Corpuscular Hgb 29.9 pg (27.0-32.0); Mean Corpuscular Volume 89.4 fL (81-99); Mean Platelet Vol. 10.2 fl (6.2-12.0); Monocyte# 0.34 X10^3/uL; Monocyte% 4.9 % (0-10); NRBC Flagged by Analyzer 0 % (0-5); Neutrophil # 5.52 X10^3/uL (2.7-7.7); Neutrophil % 80.3 % (47-70); Platelet Count 234 K/mm3 (150-450); RBC Distribution Width CV 12.3 % (11.6-14.6); RBC Distribution Width SD 40.6 fl (35.1-43.9); Red Blood Count 5.02 M/mm3 (4.2-5.4); White Blood Count 6.9 K/mm3 (4.4-11.0)
[2019-08-06 12:51] LABS: ALB/GLOB Ratio 0.9 RATIO (0.9-2.4); AST(SGOT) 14 U/L (15-37); Alanine Aminotransfer ALT/SGPT 18 U/L (13-56); Albumin, Serum 3.9 g/dL (3.2-5.0); Alkaline Phosphatase 67 U/L (45-117); Anion Gap 5 (5-15); BUN 7 mg/dL (7-18); BUN/Creat Ratio 8.8 RATIO (10-20); Chloride 103 mmol/L (98-107); EST Glomerular Filtration Rate 81 mL/min (>60); Est Glom Filt Rate - Afr Amer 98 mL/min (>60); Estimated Creatinine Clearance 72.65 ml/min; Globulin 4.2 g/dL (2.2-4.2); Glucose 128 mg/dL (74-106); Magnesium 2.1 mg/dL (1.6-2.6); Potassium 3.5 mmol/L (3.5-5.1); Protein, Total 8.1 g/dL (6.4-8.2); Sodium Level 134 mmol/L (136-145)
--- NOTE | 2019-08-06 13:06 | EKG12_ITS ---
Test Reason : REPEAT Blood Pressure : / mmHG Vent. Rate : 068 BPM Atrial Rate : 068 BPM P-R Int : 148 ms QRS Dur : 078 ms QT Int : 388 ms P-R-T Axes : 067 077 075 degrees QTc Int : 412 ms Normal sinus rhythm Normal ECG Confirmed by CASSIE BELTRAN, WALE ([id number]), society editor ROBERT CERDA ([id number]) on 08/09/2019 9:58:33 AM Referred By: Elder Argueta Confirmed By:WALE MATTHEWS MD
[2019-08-06 13:11] VITALS: BP 133/89; PULSE 79; RESP 18; O2SAT 98
[2019-08-06 15:15] VITALS: BP 121/78; PULSE 69; RESP 16; O2SAT 100
[2019-08-06] MEDS: Mag Hydrox/Al Hydrox/Simeth 30 ML UDC PO (16:16)
[2019-08-06 16:17] VITALS: BP 119/85; PULSE 81; RESP 17; O2SAT 100
[2019-08-06 16:42] VITALS: BP 132/83; PULSE 83; RESP 15; O2SAT 96
== END 2019-08-06 16:43 | disposition home or self-care (01) ==
PROVIDERS: Emergency Provider Emergency Medicine; PCP Family Medicine; Referring Provider Family Medicine
DX: R07.9 Chest pain, unspecified (principal); Z88.5 Allergy status to narcotic agent; Z90.49 Acquired absence of other specified parts of digestive tract; K59.00 Constipation, unspecified
CPT/HCPCS: 71046; 80053; 83735; 84484; 85025; 93005; 99285; A4216

== ENCOUNTER → 2020-05-21 11:43 | Outpatient (CLI) | payer OTHER, SELFPAY ==
[2020-05-21 15:11] LABS: Absolute Lymphocyte Count 1.55 X10^3/uL (0.83-4.51); Absolute Neutrophil Count 4.1 X10^3/uL (2.0-7.7); Basophil# 0.02 X10^3/uL; Basophil% 0.3 % (0-1); Eosinophil# 0.04 X10^3/uL; Eosinophils% 0.7 % (0-5); Hematocrit 44.8 % (37-47); Hemoglobin 14.4 g/dL (12.0-15.0); Lymphocyte # 1.55 X10^3/ul (4.0); Lymphocyte % 26.1 % (19-41); Mean Corp Hgb Conc 32.1 g/dL (32-36); Mean Corpuscular Hgb 29.4 pg (27.0-32.0); Mean Corpuscular Volume 91.4 fL (81-99); Mean Platelet Vol. 10.2 fl (6.2-12.0); Monocyte# 0.24 X10^3/uL; NRBC Flagged by Analyzer 0 % (0-5); Neutrophil # 4.09 X10^3/uL (2.7-7.7); Neutrophil % 68.7 % (47-70); Platelet Count 241 K/mm3 (150-450); RBC Distribution Width CV 11.9 % (11.6-14.6); RBC Distribution Width SD 40.2 fl (35.1-43.9)
[2020-05-21 15:49] LABS: Vitamin B12 450 pg/mL (211-911)
[2020-05-21 16:31] LABS: AST(SGOT) 20 U/L (15-37); Alanine Aminotransfer ALT/SGPT 21 U/L (13-56); Albumin, Serum 3.9 g/dL (3.2-5.0); Alkaline Phosphatase 65 U/L (45-117); Anion Gap 8 (5-15); BUN 5 mg/dL (7-18); BUN/Creat Ratio 6.5 RATIO (10-20); Calcium,Total 8.6 mg/dL (8.5-10.1); Chloride 104 mmol/L (98-107); Creatinine, Serum 0.77 mg/dL (0.55-1.02); EST Glomerular Filtration Rate 84 mL/min (>60); Est Glom Filt Rate - Afr Amer 102 mL/min (>60); Ferritin 158 ng/mL (8-252); Follicle Stimulating Hormone 32.8 mIU/mL; Globulin 4.1 g/dL (2.2-4.2); Glucose 83 mg/dL (74-106); Potassium 3.7 mmol/L (3.5-5.1); Sodium Level 139 mmol/L (136-145)
[2020-05-23 15:26] LABS: ANTINUCLEAR ANTIBODIES DIRECT Negative (Negative)
== END ==
PROVIDERS: PCP Family Medicine; Visit Provider Family Medicine
DX: R53.83 Other fatigue (principal); N95.9 Unspecified menopausal and perimenopausal disorder
CPT/HCPCS: 36415; 80053; 82607; 82728; 82746; 83001; 83002; 84443; 85025; 86038

== ENCOUNTER → 2020-07-24 16:19 | Outpatient (CLI) | payer OTHER, SELFPAY ==
[2020-07-24 18:06] LABS: Absolute Neutrophil Count 3.4 X10^3/uL (2.0-7.7); Basophil# 0.03 X10^3/uL; Basophil% 0.5 % (0-1); Eosinophil# 0.05 X10^3/uL; Eosinophils% 0.9 % (0-5); Erythrocyte Sedimentation Rate 9 mm/hr (0-30); Hemoglobin 14.7 g/dL (12.0-15.0); Mean Corp Hgb Conc 33.4 g/dL (32-36); Mean Corpuscular Hgb 29.8 pg (27.0-32.0); Mean Corpuscular Volume 89.2 fL (81-99); Mean Platelet Vol. 10.5 fl (6.2-12.0); Monocyte# 0.31 X10^3/uL; Monocyte% 5.7 % (0-10); NRBC Flagged by Analyzer 0 % (0-5); Neutrophil # 3.38 X10^3/uL (2.7-7.7); Neutrophil % 61.7 % (47-70); Platelet Count 243 K/mm3 (150-450); RBC Distribution Width CV 12.5 % (11.6-14.6); RBC Distribution Width SD 41.1 fl (35.1-43.9); Red Blood Count 4.93 M/mm3 (4.2-5.4); White Blood Count 5.5 K/mm3 (4.4-11.0)
[2020-07-24 18:20] LABS: ALB/GLOB Ratio 1.1 RATIO (0.9-2.4); AST(SGOT) 16 U/L (15-37); Alanine Aminotransfer ALT/SGPT 22 U/L (13-56); Albumin, Serum 4.1 g/dL (3.2-5.0); Alkaline Phosphatase 62 U/L (45-117); Anion Gap 7 (5-15); BUN 7 mg/dL (7-18); BUN/Creat Ratio 9.3 RATIO (10-20); Calcium,Total 9.2 mg/dL (8.5-10.1); Chloride 105 mmol/L (98-107); Creatinine, Serum 0.75 mg/dL (0.55-1.02); EST Glomerular Filtration Rate 87 mL/min (>60); Est Glom Filt Rate - Afr Amer 105 mL/min (>60); Globulin 3.9 g/dL (2.2-4.2); Glucose 84 mg/dL (74-106); Lipase 117 U/L (73-393); Potassium 3.5 mmol/L (3.5-5.1); Sodium Level 139 mmol/L (136-145)
== END ==
PROVIDERS: PCP Family Medicine; Referring Provider Family Medicine; Visit Provider Family Medicine
DX: R10.84 Generalized abdominal pain (principal); R10.13 Epigastric pain
CPT/HCPCS: 36415; 80053; 83690; 85025; 85652

== ENCOUNTER → 2020-08-01 16:44 | Outpatient (CLI) | payer OTHER, SELFPAY ==
--- NOTE | 2020-08-01 16:52 | CT_ITS ---
STUDY: CT ABDOMEN AND PELVIS WITH CONTRAST REASON FOR EXAM: Female, 50 years old. DIFFUSE AB PAIN x 3 weeks. Colon resection due to diverticulitis. and uterine ablation RADIATION DOSAGE (If Supplied By Facility): CTDIvol = ( 9.97 ) mGy, DLP = ( 486.25 ) mGycm TECHNIQUE: Transaxial images were obtained from the dome of the diaphragm to the symphysis pubis with oral contrast. 100 ML ISOVUE 300 AND READI CAT was administered. Sagittal and coronal images were reconstructed. Individualized dose optimization techniques were used for this CT. COMPARISON: 10/29/18. FINDINGS: The visualized lung bases are unremarkable. The visualized portions of the heart are within normal limits. Normal liver. Normal gallbladder and extrahepatic biliary system. There are multiple benign calcified granulomata of the spleen. Normal pancreas. Normal bilateral adrenal glands. Normal right kidney. Normal left kidney. Normal visualized stomach. Normal small intestine. Normal colon. There are surgical clips in the region of the appendix consistent with a prior appendectomy. There has been previous partial resection of the sigmoid with reanastomosis. Normal abdominal aorta. Normal inferior vena cava. Normal retroperitoneum. Normal urinary bladder. Normal visualized uterus. Normal abdominal wall. Normal osseous structures. CT/Abdomen/Pelvis WITH Contrast IMPRESSION: No definite acute or significant abnormality seen. Electronically Signed: Eliud Lentz MD at 21:38 EST , Service support ,
== END ==
PROVIDERS: PCP Family Medicine; Referring Provider Family Medicine; Visit Provider Family Medicine
DX: R10.84 Generalized abdominal pain (principal)
CPT/HCPCS: 74177; Q9967

== ENCOUNTER → 2020-09-11 08:28 | Outpatient (CLI) | payer OTHER, SELFPAY ==
[2020-08-17 13:10] VITALS: BMI 24.1
--- NOTE | 2020-09-11 08:31 | BI_ITS ---
MAMMOGRAPHY - BILATERAL SCREENING REASON FOR EXAM: Female, 50 years old. Routine annual screening examination. PERTINENT HISTORY: Sister with breast cancer. TECHNIQUE: Digital bilateral breast adrianna (3D mammographic acquisition) in the CC and MLO projections. 2-D mediolateral oblique (MLO) and craniocaudad (CC) views of both breasts were obtained. CAD: Full Field Digital Mammography with Computer Added Detection was performed. COMPARISON: Comparison is made with prior outside examinations dated 07/17/2016 and 02/02/2017. FINDINGS: Breast Composition: The breasts are heterogeneously dense, which may obscure small masses. There are no dominant masses or suspicious calcifications. No other significant abnormalities are identified. There has been no significant change since the prior study. BI/SCRN MAMM (CAD)W/ADRIANNA BILAT IMPRESSION: Stable bilateral screening mammogram. Yearly follow-up mammogram recommended. (A) ASSESSMENT CATEGORY: BIRADS Category 1: Negative. A letter regarding these results will be sent to the patient by the facility within 30 days. Approximately 10% of breast cancers are not detected by mammography. A normal mammogram should not delay biopsy of a clinically suspicious abnormality. [id number] Electronically Signed: Josh Stern MD at 9:42 EST , Service support ,
[2020-09-14 10:02] LABS: HPV APTIMA, High Risk Negative (Negative)
== END ==
PROVIDERS: PCP Family Medicine; Referring Provider Nurse Practitioner Women's Health; Visit Provider Nurse Practitioner Women's Health
DX: Z12.4 Encounter for screening for malignant neoplasm of cervix (principal); Z12.31 Encounter for screening mammogram for malignant neoplasm of breast
CPT/HCPCS: 77063; 77067; 87624; 88175; G0145

== ENCOUNTER 2020-10-17 11:48 | Emergency (ER) | payer OTHER, SELFPAY ==
[2020-09-11 10:05] VITALS: BMI 24.9
[2020-10-17 11:49] VITALS: BP 150/94; PULSE 93; RESP 18; TEMP 36.6; O2SAT 99; BMI 23.6
[2020-10-17 12:26] VITALS: O2SAT 100
--- NOTE | 2020-10-17 12:26 | EKG12_ITS ---
Test Reason : CP Blood Pressure : / mmHG Vent. Rate : 093 BPM Atrial Rate : 093 BPM P-R Int : 144 ms QRS Dur : 074 ms QT Int : 308 ms P-R-T Axes : 077 076 008 degrees QTc Int : 382 ms Normal sinus rhythm Nonspecific ST and T wave abnormality Abnormal ECG Confirmed by SHAHID BELTRAN, HONEY ([id number]), subeditor DIANA FAULKNER ([id number]) on 10/19/2020 12:44:45 PM Referred By: ZAHRA Confirmed By:HONEY KEY MD
[2020-10-17 12:48] VITALS: BP 133/86; PULSE 88; RESP 13; O2SAT 100
[2020-10-17] MEDS: 0.9% Normal Saline 1,000 ML 1000 ML IV (12:48)
[2020-10-17] MEDS: Aspirin 81 MG TAB.CHEW 162 MG PO (12:49)
--- NOTE | 2020-10-17 12:50 | ED.DCSUM_ITS ---
History of Present Illness Chief Complaint: Palpitations Informant: Patient Onset: Today Narrative: Patient is a 50-year-old female that denies any significant past medical history presenting with an episode of heart racing, facial flushing and jaw discomfort. Patient states that she was at home watching TV when she suddenly felt that her heart was racing. She states it lasted for about 30 minutes to an hour. She checked her heart rate on her apple watch and states it was reading at 130. She was she had some discomfort in her jaw and felt that her face was flushed. She states she feels like her face is still flushed. She denies any chest pain. She denies any difficulty breathing or shortness of breath. She states has never had anything like this before. Patient is worried that she might be having an allergic reaction. She is recently placed on prednisone for sinusitis secondary to allergies. She states she been taking 20 mg daily. Today she only took 10 mg. She knows she never had a reaction like this before. She denies any history of DVT or PE. She denies any swelling of her legs. She denies any estrogen therapy. She denies any known cardiac history. No associated GI or symptoms. No other complaints at this time. Past Medical History - Allergies and Home Meds Allergies/Adverse Reactions: Allergies morphine Allergy (Verified 10/17/20 11:52) Shortness of breath anxiety, chest tightness, tachycardia, tingling in fingers, sob Primary Care Physician: Elder Argueta MD [Primary Care Provider] - Past Medical History: - - Diverticulitis, esophagitis Surgical History: - Smoking Status: Never smoker - Family History Maternal Family History: Family History (Last Updated 09/11/20 @ 10:09 by Desiree Leos) Mother Atrial fibrillation Father History of heart artery stent Aunt Colon cancer Sister Breast cancer Family History: Reports: - - Diverticulitis Colon polyps in maternal aunt. Review of Systems General: Denies: Chills, Fever, Sweats Eyes: Denies: Visual changes - bilaterally, Diplopia ENT: Reports: - - Sinus congestion?improving. Denies: Bilateral ear pain, Rhinorrhea, Sore throat Cardiovascular: Reports: Palpitations, Heart racing. Denies: Chest pain Respiratory: Denies: Dyspnea, Cough, Dyspnea on exertion Gastrointestinal: Denies: Abdominal pain, Nausea, Vomiting, Diarrhea, Melena, Hematochezia Genitourinary: Denies: Dysuria, Hematuria, Frequency Musculoskeletal: Denies: Back pain, Extremity Pain Skin: Denies: Rash, Wounds Neurological: Denies: Headache, Weakness, Numbness Physical Exam Vital Signs/Narrative: Vital Signs Temp Pulse Resp BP Pulse Ox 10/17/20 12:48 88 13 133/86 H 100 10/17/20 12:26 100 10/17/20 11:49 97.8 F 93 18 150/94 H 99 Inital Vital Signs reviewed: Yes General: Well nourished, Well developed, No Acute Distress Head: Normocephalic, Atraumatic Eyes: Perrl, EOMI ENT: Moist mucous membranes, No rhinorrhea, Nasal congestion. Negative for: Sinus tenderness Neck: Supple, Nontender Cardiovascular: Regular rate, Regular rhythm, No murmurs, - - 2+ bilateral radial and PT pulses Respiratory: No distress, CTA bilaterally, Chest nontender Abdomen: Soft, Nontender, Nondistended, Normal bowel sounds Back: Nontender, Normal Inspection Extremities: Nontender, No edema Skin: Normal color, No rash Neurological: Alert, Oriented x3, Cranial nerves II-XII grossly intact, Normal Strength, Normal Sensation Psychological: Normal affect, Normal Mood Diagnostic/Tx/Re-eval - Rhythm Strip Rhythm Strip: Sinus Rhythm Rate: 93 Ectopy: None - EKG Initial EKG Interpretation: Sinus Rhythm, - - Sinus rhythm at a rate of 93 Normal axis Normal intervals Normal ST segments Compared to prior EKG on 08/06/2019 patient is some mild flattening of her T waves in her inferior leads - Medical Decision Making Evaluated for an episode of palpitations and facial flushing. She also had some associated jaw discomfort. Patient is low risk per heart score for ACS. EKG is normal sinus rhythm with no arrhythmia. No signs of ACS. Troponin and D-dimer negative. Patient's only risk factor for PE RC is her age. She is low risk per Wells criteria. I do not suspect PE. No signs of acute infiltrate on chest x- ray. Delta troponin is negative x2. Is possible that this is an of reaction to the prednisone/intolerance. Patient was on it for sinusitis and she will be taken off of it. She is only been on it for a couple days and does not require a taper. She is switched to Flonase and Zyrtec to help with her sinusitis. Patient is counseled that I do not think she has a bacterial sinusitis and she states her sinus symptoms actually been improving. Patient is counseled on signs and symptoms requiring return to the emergency room. Patient verbalizes agreement and understand this plan. Patient discharged home in stable and improved condition. ED Disposition - Plan for ED Patient: Disposition: Home or Assisted Living Diagnosis: Palpitations with regular cardiac rhythm Instructions: ED Palpitations Prescriptions: Fluticasone 0.05% [Flonase Nasal [place]] 1 spray NASAL BID 14 Days #1 bottle Transmission Status: Received by [facility] Cetirizine HCl [Zyrtec] 10 mg PO DAILY #14 tablet Transmission Status: Received by [facility] Referrals: Elder Argueta MD [Primary Care Provider] - Additional Instructions: Your heart work-up was normal today. It is possible this is a side effect of the prednisone that you are on. Stop taking the prednisone. You can switch to nasal steroid spray and Zyrtec to help with your sinus symptoms. If you continue to have episodes of palpitations, please follow with your primary care doctor as you might need further cardiac evaluation/heart monitor. Return the emergency room with any worsening symptoms.
--- NOTE | 2020-10-17 12:55 | RAD_ITS ---
STUDY: X-RAY CHEST REASON FOR EXAM: Female, 50 years old. Chest pain TECHNIQUE: Single AP portable view of the chest. COMPARISON: Comparison is made with prior study dated 08/06/2019. FINDINGS: EKG electrodes are seen. The lungs are clear and expanded. There is no demonstrated pleural abnormality. Normal size heart. Normal mediastinum and carlos. Normal visualized pulmonary arteries. Normal visualized aortic arch and descending thoracic aorta. Normal visualized thoracic spine. Normal visualized ribs, clavicles, and shoulders. There is no demonstrated abnormality of the visualized soft tissue structures of the upper abdomen. RAD/Chest 1 View (Portable) IMPRESSION: Normal x-ray examination of the chest. Electronically Signed: Josh Stern MD at 13:10 EDT , Service support ,
[2020-10-17 13:22] LABS: Absolute Lymphocyte Count 1.88 X10^3/uL (0.83-4.51); Absolute Neutrophil Count 6.2 X10^3/uL (2.0-7.7); Basophil# 0.02 X10^3/uL; Basophil% 0.2 % (0-1); Eosinophil# 0.04 X10^3/uL; Eosinophils% 0.5 % (0-5); Hematocrit 43.3 % (37-47); Hemoglobin 14.2 g/dL (12.0-15.0); Lymphocyte # 1.88 X10^3/ul (4.0); Lymphocyte % 21.6 % (19-41); Mean Corp Hgb Conc 32.8 g/dL (32-36); Mean Corpuscular Hgb 29.4 pg (27.0-32.0); Mean Corpuscular Volume 89.6 fL (81-99); Mean Platelet Vol. 10.2 fl (6.2-12.0); Monocyte# 0.46 X10^3/uL; Monocyte% 5.3 % (0-10); NRBC Flagged by Analyzer 0 % (0-5); Neutrophil # 6.24 X10^3/uL (2.7-7.7); Neutrophil % 71.8 % (47-70); Platelet Count 222 K/mm3 (150-450); RBC Distribution Width CV 12.1 % (11.6-14.6); RBC Distribution Width SD 39.7 fl (35.1-43.9); Red Blood Count 4.83 M/mm3 (4.2-5.4); White Blood Count 8.7 K/mm3 (4.4-11.0)
[2020-10-17 13:25] LABS: Prothrombin Time (Protime)PT. 12.6 SECONDS (11.7-14.9)
[2020-10-17 13:29] LABS: D-Dimer Quantitative (DVT/PE) <= 0.27 FEU/ug/m (0.27-0.49)
[2020-10-17 13:35] LABS: Anion Gap 4 (5-15); BUN 12 mg/dL (7-18); BUN/Creat Ratio 14.2 RATIO (10-20); Calcium,Total 8.9 mg/dL (8.5-10.1); Chloride 102 mmol/L (98-107); Creatinine, Serum 0.85 mg/dL (0.55-1.02); EST Glomerular Filtration Rate 75 mL/min (>60); Est Glom Filt Rate - Afr Amer 91 mL/min (>60); Estimated Creatinine Clearance 67.62 ml/min; Glucose 101 mg/dL (74-106); Potassium 3.4 mmol/L (3.5-5.1); Sodium Level 136 mmol/L (136-145)
[2020-10-17 13:43] LABS: BNP,B-Type NATRIURETIC PEPTIDE 31.6 pg/mL (0-100)
[2020-10-17 14:06] VITALS: BP 136/84; PULSE 80; RESP 15; O2SAT 100
[2020-10-17 15:15] VITALS: BP 135/81; PULSE 73; RESP 11; O2SAT 100
[2020-10-17 16:11] VITALS: BP 125/93; PULSE 84; RESP 16; O2SAT 99
== END 2020-10-17 16:11 | disposition home or self-care (01) ==
PROVIDERS: Emergency Provider Emergency Medicine; PCP Family Medicine
DX: R00.2 Palpitations (principal); J32.9 Chronic sinusitis, unspecified; Z80.3 Family history of malignant neoplasm of breast
CPT/HCPCS: 71045; 80048; 83880; 84484; 85025; 85379; 85610; 93005; 96360; 99285; J7030; A4216

== ENCOUNTER 2021-09-12 07:38 | Outpatient (CLI) | payer OTHER, SELFPAY ==
--- NOTE | 2021-09-12 07:41 | BI_ITS ---
MAMMOGRAPHY - BILATERAL SCREENING REASON FOR EXAM: Female, 51 years old. Routine annual screening examination. PERTINENT HISTORY: Sister with breast cancer. TECHNIQUE: Digital bilateral breast adrianna (3D mammographic acquisition) in the CC and MLO projections. 2-D mediolateral oblique (MLO) and craniocaudad (CC) views of both breasts were obtained. CAD: Full Field Digital Mammography with Computer Added Detection was performed. COMPARISON: Comparison is made with prior study dated 09/11/2020 and 02/02/2017. FINDINGS: Breast Composition: The breasts are heterogeneously dense, which may obscure small masses. There are no dominant masses or suspicious calcifications. No other significant abnormalities are identified. There has been no significant change since the prior study. BI/SCRN MAMM (CAD)W/ADRIANNA BILAT IMPRESSION: Stable bilateral screening mammogram. Yearly follow-up mammogram recommended. (A) ASSESSMENT CATEGORY: BIRADS Category 1: Negative. A letter regarding these results will be sent to the patient by the facility within 30 days. Approximately 10% of breast cancers are not detected by mammography. A normal mammogram should not delay biopsy of a clinically suspicious abnormality. [id number] Electronically Signed: Josh Stern MD at 9:05 EST ,
== END 2021-09-12 23:59 | disposition home or self-care (01) ==
LOC: OPBI 07:39
PROVIDERS: PCP Family Medicine; Visit Provider Nurse Practitioner Women's Health
DX: Z12.31 Encounter for screening mammogram for malignant neoplasm of breast (principal); Z80.3 Family history of malignant neoplasm of breast
CPT/HCPCS: 77063; 77067

== ENCOUNTER → 2022-09-01 | Outpatient (CLI) | payer OTHER, SELFPAY | END | disposition home or self-care (01) | LOC: LABSPEC 12:06 | PROVIDERS: PCP Family Medicine; Referring Provider Family Medicine; Visit Provider Family Medicine | DX: J02.9 Acute pharyngitis, unspecified (principal) | CPT/HCPCS: 87070; 87077 ==

== ENCOUNTER → 2022-09-22 | Outpatient (CLI) | payer OTHER, SELFPAY ==
--- NOTE | 2022-09-22 07:48 | BI_ITS ---
MAMMOGRAPHY - BILATERAL SCREENING REASON FOR EXAM: Female, 52 years old. Routine annual screening examination. PERTINENT HISTORY: Sister with breast cancer. TECHNIQUE: Digital bilateral breast adrianna (3D mammographic acquisition) in the CC and MLO projections. 2-D mediolateral oblique (MLO) and craniocaudad (CC) views of both breasts were obtained. CAD: Full Field Digital Mammography with Computer Added Detection was performed. COMPARISON: Comparison is made with prior study September 12, 2021 and September 11, 2020. FINDINGS: Breast Composition: The breasts are heterogeneously dense, which may obscure small masses. There are no dominant masses or suspicious calcifications. No other significant abnormalities are identified. There has been no significant change since the prior study. BI/SCRN MAMM (CAD)W/ADRIANNA BILAT IMPRESSION: Stable bilateral screening mammogram. Yearly follow-up mammogram recommended. (A) ASSESSMENT CATEGORY: BIRADS Category 1: Negative. A letter regarding these results will be sent to the patient by the facility within 30 days. Approximately 10% of breast cancers are not detected by mammography. A normal mammogram should not delay biopsy of a clinically suspicious abnormality. [id number] Electronically Signed: Josh Stern MD at 9:12 EST ,
== END | disposition home or self-care (01) ==
LOC: OPBI 07:47
PROVIDERS: PCP Family Medicine; Referring Provider Nurse Practitioner Women's Health; Visit Provider Nurse Practitioner Women's Health
DX: Z12.31 Encounter for screening mammogram for malignant neoplasm of breast (principal)
CPT/HCPCS: 77063; 77067

== ENCOUNTER → 2022-10-04 | Outpatient (CLI) | payer OTHER, SELFPAY ==
[2022-10-04 10:31] LABS: Cholesterol 182 mg/dL (200); Glucose 87 mg/dL (74-106); High Density Lipoprotein 61 mg/dL; T4 Free Direct 0.93 ng/dL (0.76-1.46); Thyroid Stim Hormone (TSH) 1.54 uIU/mL (0.358-3.74); Triglycerides 77 mg/dL; Very Low Density Lipoprotein 15 mg/dL (5-40)
== END | disposition home or self-care (01) ==
LOC: LAB 08:58
PROVIDERS: PCP Family Medicine; Referring Provider Nurse Practitioner Women's Health; Visit Provider Nurse Practitioner Women's Health
DX: R63.5 Abnormal weight gain (principal); Z13.21 Encounter for screening for nutritional disorder; Z13.220 Encounter for screening for lipoid disorders; Z13.29 Encounter for screening for other suspected endocrine disorder; Z13.1 Encounter for screening for diabetes mellitus
CPT/HCPCS: 80061; 82306; 82947; 84439; 84443

== ENCOUNTER → 2023-02-17 | Outpatient (CLI) | payer OTHER, SELFPAY ==
[2023-02-17 15:31] LABS: Absolute Lymphocyte Count 1.56 X10^3/uL (0.83-4.51); Absolute Neutrophil Count 4.1 X10^3/uL (2.0-7.7); Basophil# 0.06 X10^3/uL; Basophil% 0.9 % (0-1); Eosinophil# 0.22 X10^3/uL; Eosinophils% 3.5 % (0-5); Hematocrit 45.6 % (37-47); Hemoglobin 14.9 g/dL (12.0-15.0); Lymphocyte # 1.56 X10^3/ul (0.83-4.51); Lymphocyte % 24.6 % (19-41); Mean Corp Hgb Conc 32.7 g/dL (32-36); Mean Corpuscular Hgb 29.6 pg (27.0-32.0); Mean Corpuscular Volume 90.7 fL (81-99); Mean Platelet Vol. 10.2 fl (6.2-12.0); Monocyte# 0.34 X10^3/uL; Monocyte% 5.4 % (0-10); NRBC Flagged by Analyzer 0 % (0-5); Neutrophil # 4.13 X10^3/uL (2.7-7.7); Neutrophil % 65.3 % (47-70); Platelet Count 263 K/mm3 (150-450); RBC Distribution Width CV 12.8 % (11.6-14.6); RBC Distribution Width SD 42.5 fl (35.1-43.9); Red Blood Count 5.03 M/mm3 (4.2-5.4); White Blood Count 6.3 K/mm3 (4.4-11.0)
[2023-02-17 15:46] LABS: Erythrocyte Sedimentation Rate 12 mm/hr (0-30)
[2023-02-17 15:49] LABS: PTHIN 70.2 pg/mL (18.4-80.1)
[2023-02-17 15:53] LABS: Vitamin D,25 Hydroxy 25.9 ng/mL
[2023-02-17 16:23] LABS: ALB/GLOB Ratio 0.9 RATIO (0.9-2.4); AST(SGOT) 35 U/L (15-37); Alanine Aminotransfer ALT/SGPT 56 U/L (13-56); Albumin, Serum 3.9 g/dL (3.2-5.0); Alkaline Phosphatase 87 U/L (45-117); Anion Gap 5 (5-15); BUN 8 mg/dL (7-18); BUN/Creat Ratio 9.8 RATIO (10-20); CRP < 2.90 mg/L (0.0-3.0); Calcium,Total 9.4 mg/dL (8.5-10.1); Chloride 106 mmol/L (98-107); Creatinine, Serum 0.81 mg/dL (0.55-1.02); EST Glomerular Filtration Rate 78 mL/min (>60); Est Glom Filt Rate - Afr Amer 94 mL/min (>60); Globulin 4.4 g/dL (2.2-4.2); Glucose 82 mg/dL (74-106); Protein, Total 8.3 g/dL (6.4-8.2); Sodium Level 138 mmol/L (136-145); Thyroid Stim Hormone (TSH) 2.15 uIU/mL (0.358-3.74)
[2023-02-19 10:09] LABS: Lyme Scn Total Ab w/Rflx Negative (Negative)
[2023-02-22 15:07] LABS: ANTINUCLEAR ANTIBODIES DIRECT Negative (Negative); Beef <0.10 kU/L (Class 0); Chocolate <0.10 kU/L (Class 0); Corn <0.10 kU/L (Class 0); Egg, Whole <0.10 kU/L (Class 0); Milk (Cow) <0.10 kU/L (Class 0); Peanut <0.10 kU/L (Class 0); Pork <0.10 kU/L (Class 0); Soybean <0.10 kU/L (Class 0); Wheat <0.10 kU/L (Class 0)
== END | disposition home or self-care (01) ==
LOC: MFPLAB 11:18
PROVIDERS: PCP Family Medicine; Visit Provider Family Medicine
DX: M25.649 Stiffness of unspecified hand, not elsewhere classified (principal); E55.9 Vitamin D deficiency, unspecified; J30.2 Other seasonal allergic rhinitis
CPT/HCPCS: 36415; 80053; 82306; 83970; 84443; 85025; 85652; 86003; 86005; 86038; 86140; 86618

== ENCOUNTER → 2023-04-17 | Outpatient (CLI) | payer OTHER, SELFPAY | END | disposition home or self-care (01) | PROVIDERS: PCP Family Medicine; Visit Provider Family Medicine | DX: R30.0 Dysuria (principal) | CPT/HCPCS: 87086 ==

== ENCOUNTER 2023-10-25 15:26 | Emergency (ER) | payer OTHER, SELFPAY ==
[2023-10-25 15:27] VITALS: BP 158/90; PULSE 95; RESP 16; TEMP 36.6; O2SAT 98; BMI 27.5
--- NOTE | 2023-10-25 15:43 | EX.ED.DYSGE1 ---
HPI <DARIUS Srinivasan - Last Filed: 10/25/23 16:26> History of Present Illness Chief Complaint: Back Narrative Narrative: 53-year-old female has had pain in a localized area of her right lumbar back over the last week. She noticed it most after driving and sitting for a long period. She has been using ice, heat, and ibuprofen. Today after she sat down in a kitchen chair she had increased pain to 10/10. Palpable her usual treatments did not work so she presented to the ED. She has no pain that radiates down the buttock or lower extremities. No weakness or paresthesias. No saddle anesthesia or bladder bowel incontinence. No fever or IVDU. No urinary symptoms. No history of trauma. PFSH <DARIUS Srinivasan - Last Filed: 10/25/23 16:26> [facility] Medical History (Updated 10/25/23 @ 16:03 by DARIUS Srinivasan) Diverticulitis large intestine Vitamin D deficiency Home Medications cetirizine 10 mg tablet 10 mg PO DAILY #14 tabs 10/17/20 [Rx Last Taken Unknown] rabeprazole 20 mg tablet,delayed release 20 mg PO DAILY 09/12/21 [History Last Taken Unknown] famotidine 20 mg tablet (Acid Nail Assembly Machine Operator (famotidine)) 20 mg PO DAILY 09/22/22 [History Last Taken Unknown] metaxalone 800 mg tablet 800 mg PO TID PRN muscle pain 5 days #15 tabs 10/25/23 [Rx Last Taken Unknown] Allergy/AdvReac Type Severity Reaction Status Date / Time morphine Allergy Shortness Verified 10/25/23 15:28 of breath Family History Mother Atrial fibrillation Father History of heart artery stent Aunt Colon cancer Sister Breast cancer Surgical History H/O section History of appendectomy Hx of colonoscopy Hx of esophagogastroduodenoscopy S/P laparoscopic-assisted sigmoidectomy Uterine Ablation Social History (Updated 09/22/22 @ 08:15 by Viridiana Yao) current occupational status: employed current occupation: [employer] Smoking Status: Never smoker alcohol intake: never substance use type: does not use caffeine: Yes what type of physical activity do you participate in: none seatbelt use: always do you feel safe at home: Yes additional social history: -Willie ROS <DARIUS Srinivasan - Last Filed: 10/25/23 16:26> ROS ED ROS Narrative Constitutional: Negative for fever, chills, malaise. GI: Negative for abdominal pain, nausea, vomiting. : Negative for dysuria, hematuria or frequency. Neuro: Negative for motor/sensory dysfunction. EXAM <ADRIUS Srinivasan - Last Filed: 10/25/23 16:26> Physical Exam Narrative Exam Narrative: CONST: Patient sitting in no acute distress. EYES: Normal inspection. NECK: Normal inspection. RESP: No respiratory distress, CTAB. CVS: Regular rate and rhythm, no murmur, no gallop. Back: Normal inspection, no midline tenderness or step-offs, slightly tender over right SI joint. SKIN: Color normal, no rash, warm, dry, intact. EXTREMITIES: Normal appearance, no pedal edema. 5/5 strength in bilateral hip flexion, knee flexion/extension, and DF/PF. Normal sensation to light touch, 2+ PT pulses. Normal gait. Negative straight leg raise. NEURO: Alert and answering questions appropriately. PSYCH: Normal affect. Const Vital Signs: 10/25/23 15:27 Temperature 97.8 F Temperature Source Temporal Pulse Rate 95 Respiratory Rate 16 Blood Pressure 158/90 H Blood Pressure Mean 112 Pulse Ox 98 Oxygen Delivery Method Room Air <Dr. George Jasmine MD - Last Filed: 10/25/23 16:04> Physical Exam Const Vital Signs: 10/25/23 15:27 Temperature 97.8 F Temperature Source Temporal Pulse Rate 95 Respiratory Rate 16 Blood Pressure 158/90 H Blood Pressure Mean 112 Pulse Ox 98 Oxygen Delivery Method Room Air MDM <DARIUS Srinivasan - Last Filed: 10/25/23 16:26> MDM MDM Narrative Medical decision making narrative: Differential: Lumbar strain, sacroiliitis, sciatica. She has no signs or symptoms of epidural abscess or cauda equina syndrome. Test considered but not ordered: No indication for x-ray with no history of trauma no midline tenderness I have personally performed a face to face assessment of the patient and have reviewed the TASIA Note. I performed a substantive portion of the visit including all aspects of the following. My jett findings include: History is 53-year-old female no prior back history. Several day history of left lower back pain. No fall injury or trauma. No fever or redness. No prior back surgery. No radiation down her leg. No weakness or numbness. No bowel or bladder incontinence. No dysuria or hematuria. Exam is [well-appearing 53-year-old. Vital signs stable afebrile. H EENT exam unremarkable. Neck nontender. Lungs clear to auscultation bilaterally. Heart regular rhythm no murmur. Abdomen soft, nontender, nondistended, normal bowel sounds without peritoneal signs. Moving all 4 extremities. 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 Dorsi plantarflexion intact. No cauda equina. No saddle anesthesia. Negative straight leg raise bilaterally. Back exam she has left SI tenderness. There is no redness or warmth. Small component of may be some muscle tenderness. Lumbar spine is nontender. There is no redness or warmth. No discoloration. No signs of trauma. Right SI joint is nontender. Neurologically she is awake and alert. No focal motor or sensory deficits. Good strength in both upper and lower extremities.] Medical Decision Making [53-year-old most likely early sciatica. Currently there is no signs of a radiculopathy or pain going into her leg. Treated with anti-inflammatories. And Skelaxin for 1 week. Outpatient follow-up with primary care physician if not improving. Currently there is no signs of acute herniated disc. There is no lower extremity numbness or weakness.] Other additions or changes: [None] <Dr. George Jasmine MD - Last Filed: 10/25/23 16:04> [facility] Narrative Medical decision making narrative: I have personally performed a face to face assessment of the patient and have reviewed the TASIA Note. I performed a substantive portion of the visit including all aspects of the following. My jett findings include: History is 53-year-old female no prior back history. Several day history of left lower back pain. No fall injury or trauma. No fever or redness. No prior back surgery. No radiation down her leg. No weakness or numbness. No bowel or bladder incontinence. No dysuria or hematuria. Exam is [well-appearing 53-year-old. Vital signs stable afebrile. H EENT exam unremarkable. Neck nontender. Lungs clear to auscultation bilaterally. Heart regular rhythm no murmur. Abdomen soft, nontender, nondistended, normal bowel sounds without peritoneal signs. Moving all 4 extremities. 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 Dorsi plantarflexion intact. No cauda equina. No saddle anesthesia. Negative straight leg raise bilaterally. Back exam she has left SI tenderness. There is no redness or warmth. Small component of may be some muscle tenderness. Lumbar spine is nontender. There is no redness or warmth. No discoloration. No signs of trauma. Right SI joint is nontender. Neurologically she is awake and alert. No focal motor or sensory deficits. Good strength in both upper and lower extremities.] Medical Decision Making [53-year-old most likely early sciatica. Currently there is no signs of a radiculopathy or pain going into her leg. Treated with anti-inflammatories. And Skelaxin for 1 week. Outpatient follow-up with primary care physician if not improving. Currently there is no signs of acute herniated disc. There is no lower extremity numbness or weakness.] Other additions or changes: [None] History & Record Review Discussion w/independent historian: Patient and Family Additional record(s) reviewed:: Prior inpatient record, Prior outpatient record, Prior ED visit and Prior labs Discharge Plan Triage Chief Complaint: Back ED Midlevel Provider: Luciana Dominique ED Provider: George Jasmine Dx/Rx/DC Orders Clinical Impression: Left lumbar pain Instructions: ED Back Care Tips, ED Back Pain (Acute or Chronic) Prescriptions: New metaxalone 800 mg tablet 800 mg PO TID PRN (Reason: muscle pain) 5 Days Qty: 15 0RF No Action rabeprazole 20 mg tablet,delayed release (DR/EC) 20 mg PO DAILY famotidine [Acid Nail Assembly Machine Operator (famotidine)] 20 mg tablet 20 mg PO DAILY cetirizine 10 MG tablet 10 mg PO DAILY Qty: 14 0RF Primary Care Provider: Elder Argueta Referrals: Elder Argueta MD [Primary Care Provider] - Activity Restrictions/Additional Instructions: You can alternate Tylenol 1000 mg and ibuprofen 600 mg every 3 hours. Continue heat or ice. They also sell [id number] lidocaine patches called Salonpas which may be helpful. Please follow-up with your primary care doctor. Disposition Disposition: Home, Self Care
[2023-10-25] MEDS: Metaxalone 800 MG Tablet PO (16:13)
[2023-10-25] MEDS: Ketorolac 30 MG/ML Syringe IM (16:13)
[2023-10-25 16:26] VITALS: BP 147/87; PULSE 77; RESP 16; TEMP 36.4; O2SAT 98
[2023-10-25] MEDS: HYDROcodone Bitartrate/Apap 5/325 Tablet PO (17:11)
[2023-10-25] MEDS: Ondansetron ODT 4 MG Tablet PO (17:12)
[2023-10-25 17:31] VITALS: BP 147/87; PULSE 77; RESP 18; TEMP 36.4; O2SAT 97
== END 2023-10-25 17:34 | disposition home or self-care (01) ==
PROVIDERS: Emergency Provider Emergency Medicine; PCP Family Medicine; Visit Provider Emergency Medicine
DX: M54.50 Low back pain, unspecified (principal); X58.XXXA Exposure to other specified factors, initial encounter; Y92.89 Other specified places as the place of occurrence of the external cause; Z90.49 Acquired absence of other specified parts of digestive tract
CPT/HCPCS: 99283

== ENCOUNTER → 2023-10-30 | Outpatient (CLI) | payer OTHER, SELFPAY ==
[2023-10-30 14:57] LABS: Mucous, Urine 0 SEEN /hpf (<or=2+); Red Blood Cells-Urine 0 SEEN /hpf (0-5); White Blood Cells 0 SEEN /hpf (0-5)
--- NOTE | 2023-10-30 14:57 | RAD_ITS ---
STUDY: X-RAY - SACROILIAC JOINTS REASON FOR EXAM: Female, 53 years old. PAIN- LEFT TECHNIQUE: 3 view(s) of the sacroiliac joints were obtained. COMPARISON: None. FINDINGS: Normal bilateral sacroiliac joints. Normal visualized sacral ala and sacrum. Normal visualized iliac bones. Normal visualized soft tissue structures. RAD/S-I Jts 3 or More Views IMPRESSION: Normal x-ray examination of the bilateral sacroiliac joints. Electronically Signed: Dawood Meyer MD at 21:25 EDT ,
--- NOTE | 2023-10-30 15:20 | RAD_ITS ---
EXAM: XR LEFT HIP WITH PELVIS WHEN PERFORMED, 2 OR 3 VIEWS CLINICAL INDICATION: PAIN TECHNIQUE: Two or three views of the left hip with pelvis when performed. COMPARISON: No relevant prior studies available. FINDINGS: BONES/JOINTS: Unremarkable. No displaced fracture. No destructive or sclerotic lesions. Note that overlapping bowel shadows may however obscure fine detail. Sacroiliac joint is unremarkable. No widening of the pubic symphysis. The articular structures are unremarkable. SOFT TISSUES: Unremarkable. No soft tissue swelling or gas. RAD/HIP, UNI W/ Pelvis 2-3 Views IMPRESSION: No evidence of displaced pelvic or hip fracture. Electronically Signed: Omar Guajardo MD at 20:38 EDT ,
[2023-10-30 17:52] LABS: Color, Urine Yellow (Yellow); Glucose, Dipstick Normal (Normal); Ketone-Dipstick Negative (Negative); Leukocyte Esterase-Dipstick Negative /ul (Negative); Nitrite-Dipstick Negative (Negative); Occult Blood-Urine Negative /ul (Negative); Protein-Dipstick Negative (Negative); Specific Gravity, Urine 1.005 (1.002-1.030); Urine Bilirubin Dipstick Negative (Negative); Urine Clarity Clear (Clear); Urine Urobilinogen Normal (Normal)
[2023-10-30 17:55] LABS: Absolute Lymphocyte Count 1.66 X10^3/uL (0.83-4.51); Absolute Neutrophil Count 4.6 X10^3/uL (2.0-7.7); Basophil# 0.04 X10^3/uL; Basophil% 0.6 % (0-1); Eosinophil# 0.15 X10^3/uL; Eosinophils% 2.2 % (0-5); Hematocrit 42.2 % (37-47); Hemoglobin 13.6 g/dL (12.0-15.0); Lymphocyte # 1.66 X10^3/ul (0.83-4.51); Lymphocyte % 24.1 % (19-41); Mean Corp Hgb Conc 32.2 g/dL (32-36); Mean Corpuscular Hgb 29.1 pg (27.0-32.0); Mean Corpuscular Volume 90.4 fL (81-99); Mean Platelet Vol. 10.3 fl (6.2-12.0); Monocyte# 0.44 X10^3/uL; Monocyte% 6.4 % (0-10); NRBC Flagged by Analyzer 0 % (0-5); Neutrophil # 4.58 X10^3/uL (2.7-7.7); Neutrophil % 66.4 % (47-70); Platelet Count 240 K/mm3 (150-450); RBC Distribution Width CV 13.1 % (11.6-14.6); RBC Distribution Width SD 42.4 fl (35.1-43.9); Red Blood Count 4.67 M/mm3 (4.2-5.4); White Blood Count 6.9 K/mm3 (4.4-11.0)
[2023-10-30 18:03] LABS: Bacteria 1+ /hpf (None Seen); Squamous Epithelial Cells - UA 0-5 SEEN /hpf (5-10)
[2023-10-30 18:11] LABS: AST(SGOT) 19 U/L (15-37); Alanine Aminotransfer ALT/SGPT 26 U/L (13-56); Albumin, Serum 3.8 g/dL (3.2-5.0); Alkaline Phosphatase 68 U/L (45-117); Anion Gap 5 (5-15); BUN 8 mg/dL (7-18); BUN/Creat Ratio 10.4 RATIO (10-20); CRP < 2.90 mg/L (0.0-3.0); Calcium,Total 8.9 mg/dL (8.5-10.1); Chloride 107 mmol/L (98-107); Creatinine, Serum 0.77 mg/dL (0.55-1.02); EST Glomerular Filtration Rate 83 mL/min (>60); Erythrocyte Sedimentation Rate 9 mm/hr (0-30); Est Glom Filt Rate - Afr Amer 100 mL/min (>60); Globulin 3.8 g/dL (2.2-4.2); Glucose 81 mg/dL (74-106); Potassium 3.8 mmol/L (3.5-5.1); Protein, Total 7.6 g/dL (6.4-8.2); Sodium Level 140 mmol/L (136-145)
== END | disposition home or self-care (01) ==
LOC: MTLAB 14:55
PROVIDERS: PCP Family Medicine; Referring Provider Family Medicine; Visit Provider Family Medicine
DX: M53.3 Sacrococcygeal disorders, not elsewhere classified (principal); M25.552 Pain in left hip
CPT/HCPCS: 36415; 72202; 73502; 80053; 81001; 85025; 85652; 86140; 87086

== ENCOUNTER → 2023-11-10 | Outpatient (CLI) | payer OTHER, SELFPAY ==
--- NOTE | 2023-11-10 07:33 | BI_ITS ---
MAMMOGRAPHY - BILATERAL SCREENING REASON FOR EXAM: Female, 53 years old. Routine annual screening examination. PERTINENT HISTORY: Sister with breast cancer. TECHNIQUE: Digital bilateral breast adrianna (3D mammographic acquisition) in the CC and MLO projections. 2-D mediolateral oblique (MLO) and craniocaudad (CC) views of both breasts were obtained. CAD: Full Field Digital Mammography with Computer Added Detection was performed. COMPARISON: Comparison is made with prior study of September 22, 2022 and September 12, 2021. FINDINGS: Breast Composition: The breasts are heterogeneously dense, which may obscure small masses. There is a 1.3 cm x 1.3 cm well-defined nodule in the upper lateral portion of the left breast. Correlation with ultrasound is recommended for further evaluation. No other significant abnormalities are identified. BI/SCRN MAMM (CAD)W/ADRIANNA BILAT IMPRESSION: 1.3 cm x 1.3 cm well-defined nodule in the upper lateral aspect of the left breast. Correlation with ultrasound is recommended. Prior sonogram demonstrated a cyst in the left breast. ASSESSMENT CATEGORY: BIRADS Category 0: Incomplete. Need additional imaging evaluation. A letter regarding these results will be sent to the patient by the facility within 30 days. Approximately 10% of breast cancers are not detected by mammography. A normal mammogram should not delay biopsy of a clinically suspicious abnormality. [id number] Electronically Signed: Josh Stern MD at 10:02 EDT ,
== END | disposition home or self-care (01) ==
LOC: OPBI 07:33
PROVIDERS: PCP Family Medicine; Referring Provider Nurse Practitioner Women's Health; Visit Provider Nurse Practitioner Women's Health
DX: Z12.31 Encounter for screening mammogram for malignant neoplasm of breast (principal); Z80.3 Family history of malignant neoplasm of breast
CPT/HCPCS: 77063; 77067

== ENCOUNTER → 2023-11-11 | Outpatient (CLI) | payer OTHER, SELFPAY ==
--- NOTE | 2023-11-11 14:41 | US_ITS ---
STUDY: ULTRASOUND BREAST - LEFT REASON FOR EXAM: Female, 53 years old. Abnormal screening mammogram. TECHNIQUE: Axial and longitudinal images of the LEFT breast were performed with a high resolution ultrasound transducer. # OF IMAGES: 35 COMPARISON: Comparison is made with prior mammogram dated November 10, 2023. FINDINGS: LEFT Breast: The mammographic abnormality corresponds to a 1 cm x 1.4 cm x 0.9 cm hypoechoic slightly irregular nodular density at the 2:00 position of the breast at 7 cm from the nipple. Biopsy recommended. US/Breast Limited Unilateral IMPRESSION: 1 cm x 1.4 cm x 0.9 cm hypoechoic slightly irregular nodular density at the 2:00 position of the breast at 7 cm from the nipple. Biopsy recommended. ASSESSMENT CATEGORY: BIRADS Category 4: Suspicious - Biopsy Should Be Considered. A letter regarding these results will be sent to the patient by the facility within 30 days. Electronically Signed: Josh Stern MD at 9:54 EDT ,
== END | disposition home or self-care (01) ==
LOC: OPUS 14:35
PROVIDERS: PCP Family Medicine; Referring Provider Nurse Practitioner Women's Health; Visit Provider Nurse Practitioner Women's Health
DX: N63.21 Unspecified lump in the left breast, upper outer quadrant (principal)
CPT/HCPCS: 76642

== ENCOUNTER → 2023-11-17 | Outpatient (CLI) | payer OTHER, SELFPAY ==
--- NOTE | 2023-11-17 15:00 | BRBX_PTH ---
PATIENT: MARTIN YU LOC: [facility] U#:[id number] AGE/SX: 53/F ROOM: RE11/17/[address]: Dr. Kristopher Urias MD : 1970 BED: DIS: 11/17/2023 SPEC #: [id number] RECD: 11/17/23 15:59 STATUS: KERON MILLAN #: [id number] TITO: 11/17/23 15:[address]: Kristopher Urias DEPT: SURGICAL PATHOLOGY RECD BY: Magy Mackay ENTERED: 11/18/23 09:48 SP TYPE: BREAST BX OTHR DR: Dr. Elder Argueta MD Tissues: Left breast, NOS Procedures: Surgery Specimen Level IV HEADER OPERATION: Left breast biopsy PRE-OP DIAGNOSIS: Left breast mass TISSUE SUBMITTED: Left breast tissue MICROSCOPIC DIAGNOSIS Left breast mass, core biopsy: Densely collagenized stroma. Focal intraductal hyperplasia without atypia. Focal banal microcalcifications. See comment. 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 Clinical correlation is suggested. MICROSCOPIC DESCRIPTION Slides are reviewed. GROSS DESCRIPTION Received in fixative is one container labeled with the patient's name and designated Left breast tissue. The specimen consists of multiple elongated fragments of greenfield tissue that in aggregate measure 1.5 x 0.2 x 0.1 cm. The specimen is totally submitted in one cassette. /mr 11/18/23 TC:5 CPT:27422
== END | disposition home or self-care (01) ==
LOC: LABSPEC 16:11
PROVIDERS: PCP Family Medicine; Referring Provider Surgery; Visit Provider Surgery
DX: N63.20 Unspecified lump in the left breast, unspecified quadrant (principal)
CPT/HCPCS: 88305

== ENCOUNTER → 2024-04-21 | Outpatient (CLI) | payer OTHER, SELFPAY ==
--- NOTE | 2024-04-21 14:30 | BI_ITS ---
MAMMOGRAPHY - UNILATERAL DIAGNOSTIC: LEFT BREAST REASON FOR EXAM: Female, 54 years old. Status post left breast biopsy. PERTINENT HISTORY: Non-contributory. TECHNIQUE: Digital unilateral breast nehemiah (3D mammographic acquisition) in the CC and MLO projections. 2-D mediolateral oblique (MLO) and craniocaudad (CC) views of both breasts were obtained. CAD: Full Field Digital Mammography with Computer Added Detection was performed. COMPARISON: Comparison is made with prior study dated November 10, 2023. FINDINGS: Breast Composition: The breasts are heterogeneously dense, which may obscure small masses. A tissue clip marker is seen within the 1 cm nodule in the deep upper lateral aspect of the left breast. No other significant abnormalities are identified. BI/DIAG MAMM W/CAD, UNILAT IMPRESSION: Status post ultrasound-guided left breast biopsy with tissue clip marker. One year follow-up mammogram recommended. (A) ASSESSMENT CATEGORY: BIRADS Category 2: Benign. A letter regarding these results will be sent to the patient by the facility within 30 days. Approximately 10% of breast cancers are not detected by mammography. A normal mammogram should not delay biopsy of a clinically suspicious abnormality. Electronically Signed: Josh Stern MD at 15:19 EDT ,
== END | disposition home or self-care (01) ==
PROVIDERS: PCP Family Medicine; Referring Provider Surgery; Visit Provider Surgery
DX: N63.0 Unspecified lump in unspecified breast (principal)
CPT/HCPCS: 77061; 77065; G0279

== ENCOUNTER → 2025-01-16 | Outpatient (CLI) | payer OTHER, SELFPAY ==
--- OUTSIDE RECORDS SUMMARY | 2025-01-16 11:08 | XMS RPT_ITS | CCD ---
Author Organization [facility] ion Partnership [facility] Care Team Providers Care Shank Cementer Hand Name Role Phone Sulaiman Sepulveda Unavailable Unavailable Sulaiman Sepulveda Unavailable Unavailable Elder Argueta Unavailable Unavailable Bob BELTRAN, Avis Hunter Unavailable [phone] Elder Argueta Unavailable Tiki Reyes Unavailable Unavailable Elsie SUPERINTENDENT OPERATING, Delaney Attending Unavailable Kendall Elder Referring Unavailable Argueta, Elder Primary Care Unavailable Dylon Mancuso Attending Unavailable Dylon Mancuso Referring Unavailable Argueta, Elder Primary Care Unavailable Dylon Mancuso Attending Unavailable Calabranais Dylon Referring Unavailable Argueta, Elder Primary Care Unavailable [place] SUPERINTENDENT OPERATING, Delaney Attending Unavailable Elsie SUPERINTENDENT OPERATING, Delaney Referring Unavailable Argueta, Elder Primary Care Unavailable [place] SUPERINTENDENT OPERATING, Delaney Attending Unavailable Argueta, Elder Referring Unavailable Argueta, Elder Primary Care Unavailable Allergies Allergy Classification Reported Allergen(s) Allergy Type Date of Onset Reaction(s) Facility (1 source) Morphine Drug Allergy 01-16-2025 Repository Medications Current Medications Medication Drug Class(es) Dates Sig (Normalized) Sig (Original) azithromycin 250 mg oral tablet (2 sources) Macrolide Antimicrobial Start: 12-05-2020 End: 12-09-2020 Zithromax Z-Marco A 250 mg oral tablet ; 2 tab(s) by mouth at once on day 1, then 1 tablet once a day on days 2-5 Quantity: 6 Refills: 0 Ordered: 05-Dec-2020 Tiki Reyes Start: 05-Dec-2020 End: 09-Dec-2020 Generic Substitution Allowed Comments: Do not take dairy products, antacids, or iron preparations within one hour of this medication.Finish all this medication unless otherwise directed by prescriber. Start: 08-30-2019 End: 09-03-2019 take 2 tablets by mouth once, then take 1 tablet by mouth once daily Azithromycin 5 Day Dose Pack 250 mg oral tablet ; take 2 tabs to start then 1 cap(s) orally once a day for 4 days. Quantity: 6 Refills: 0 Ordered: 30-Aug-2019 Juju Cutler Start: 30-Aug-2019 End: 03-Sep-2019 Status: Completed Generic Substitution Allowed Comments: Do not take dairy products, antacids, or iron preparations within one hour of this medication.Finish all this medication unless otherwise directed by prescriber. Comment on above: Do not take dairy pr oducts, antacids, or iron preparations within one hour of this medication.Finish all this medication unless otherwise directed by prescriber. omeprazole 20 mg delayed release oral tablet (1 source) Proton Pump Inhibitor take 1 tablet by mouth once daily omeprazole 20 mg oral delayed release tablet ; 1 tab(s) orally once a day Quantity: 0 Refills: 0 Ordered: 05-Dec-2020 Iqra Meneses Generic Substitution Allowed Completed/Discontinued Medications Medication Drug Class(es) Dates Sig (Normalized) Sig (Original) benzonatate 100 mg oral capsule (1 source) Non-narcotic Antitussive Start: 08-30-2019 End: 09-05-2019 take 1 capsule by mouth three times daily benzonatate 100 mg oral capsule ; 1 cap(s) orally 3 times a day Quantity: 21 Refills: 0 Ordered: 30-Aug-2019 Juju Cutler Start: 30-Aug-2019 End: 05-Sep-2019 Status: Completed Generic Substitution Allowed Comments: May cause drowsiness. Alcohol may intensify this effect. Use care when operating dangerous machinery.Swallow whole. Do not crush. Comment on above: May cause drowsiness . Alcohol may intensify this effect. Use care when operating dangerous machinery.Swallow whole. Do not crush. Problems Active Problems Problem Classification Problem Date Documented Da te Episodic/Chronic Malaise and fatigue (2 sources) Other fatigue; Translations: [Other fatigue] Onset: 01-16-2025 Episodic Other screening for suspected conditions (not mental disorders or infectious disease) (3 sources) Mammography abnormal; Translations: [Encounter for screening mammogram for malignant neoplasm of breast] Onset: 02-09-2017 02-09-2017 Episodic Other upper respiratory disease (2 sources) Nasal congestion; Translations: [Other disease of nasal cavity and sinuses] 12-05-2020 Episodic Other upper respiratory infections (4 sources) Acute sinusitis; Translations: [Acute sinusitis, unspecified] 12-05-2020 Episodic Comment on above: SINUS INFECTION Past or Other Problems Problem Classification Problem Date Documented Da te Episodic/Chronic Nonmalignant breast conditions (1 source) Unspecified lump in unspecified breast; Translations: [Unspecified lump in unspecified breast] Onset: 05-12-2024 Episodic Results Test Name Value Interpretation Reference Range Facility NATERAon 01-16-2025 NATURA SEE SCANNED REPORT Normal [facility] Comment on above: Performed By: #### [id number] #### Laboratory [address] [place], [address] Project Scientist Office Visit Reporton 01-16-2025 Project Scientist Office Visit Report [facility] [address], [address] [place] [address] OFFICE VISIT Date of Service: 01/16/25 MR#: [id number] Acct: [id number] Name: HANNY YU NADIA Rep #: [id number] : 1970 Provider: JACQUIE cronin Age/Sex: 55/F [place] [facility] [place]: Signed Intake Vital Signs 11/17/23 15:09 01/16/25 08:12 01/16/25 08:23 Height 5 ft 4 in 5 ft 4 in 5 ft 4 in Weight: 164 lb BMI 28.1 BP 126/82 H Intake Visit Reasons: Annual (TAX COMPLIANCE OFFICER) Chief Complaint: Annual Canoe Builder Required: No Is patient in pain?: No Allergies morphine Allergy (Verified 01/16/25 08:12) Shortness of breath Medications ???Medication ???Instructions ???Recorded ???Confirmed ???Type cetirizine 10 mg tablet 10 mg PO DAILY #14 tabs 10/17/20 0 01/16/25 Rx rabeprazole 20 mg tablet,delayed 20 mg PO DAILY 09/12/21 01/16/25 H istory release famotidine 20 mg tablet (Acid 20 mg PO DAILY 09/22/22 01/16/25 H istory Desktop Administrator (famotidine)) Is last menstrual period known: No Post menopausal: Yes Patient : No : No PFSH Medical History (Updated 01/16/25 @ 09:06 by Delaney Zimmerman SUPERINTENDENT OPERATING, SUPERINTENDENT OPERATING-C) Breast nodule Vitamin D deficiency Diverticulitis large intestine Surgical History S/P laparoscopic-assisted sigmoidectomy History of appendectomy Uterine Ablation H/O section Hx of esophagogastroduodenoscopy Hx of colonoscopy Family History Mother Atrial fibrillation Father History of heart artery stent Aunt Colon cancer Sister Breast cancer Social History current occupational status: employed current occupation: [employer] Smoking Status: Never smoker alcohol intake: never substance use type: does not use caffeine: Yes what type of physical activity do you participate in: none seatbelt use: always do you feel safe at home: Yes additional social history: -Willie History 2 Elective abortions Hx Para 2 Spontaneous abortions Hx # Term Pregnancies Ectopic pregnancies Hx # Pregnancies Multiple births # of living children Past Pregnancies Del. Date Name GA/Weeks Outcome Route Bth Weight Infant Gen Labor Lgth Anesthesia Del Locatn Provider FOB Unknown Tan Unknown Marycarmen HPI Encounter for routine gynecological examination Details: HANNY YU is a 55 year old who presents for annual exam. More fatigue, hot flashes, sleep disturbance and weight gain. Last PAP: 2020 History of abnormal PAP: no Last mammogram: 04/2024 History of abnormal mammogram: benign bx Colon cancer screening: due/[facility] Other preventative health care screenings: Luh Argueta Female Reproductive History Questions: metorrhagia: No, sexually active: Yes, dyspareunia: Yes and PCB: No ROS Const Constitutional: Reports fatigue and weight gain; Denies weight loss Cardio Card: Denies chest pain Resp Resp: Denies cough or dyspnea on exertion GI GI: Denies abdominal pain, bloating, change in stool character, constipation or vomiting : Reports as per HPI; Denies difficulty voiding, pelvic pain, urinary frequency, urinary incontinence, urinary urgency, vaginal discharge or vaginal pruritus Exam Const General: cooperative, healthy appearing, no acute distress and well developed Orientation: alert, oriented to person and oriented to place [facility] Head: normal to inspection Neck Neck: normal visual inspection Thyroid: thyroid normal Lymphatic: no lymphadenopathy noted Chest Breast inspection: normal inspection of the breasts and normal inspection of the axillae Breast palpation: normal palpation of the breasts, normal palpation of the axillae and no axillary lymphadenopathy Resp Effort Inspection: normal respiratory effort GI Palpation: soft, no masses and nontender Rectal Exam: deferred External Female Exam: normal external appearance and normal appearance of the urethra Urethra: normal appearance of the urethra and normal palpation Speculum Exam - Vagina: normal vaginal discharge and vagina atrophic (mild) Speculum Exam - Cervix: normal appearance of the cervix Bimanual Exam- Vagina Uterus: normal bimanual exam, uterine size normal, uterine shape normal and non-tender Bimanual Exam- Adnexa, other: normal adnexae, no masses, normal and non-tender Pelvic Support: normal Neuro General: patient alert and patient oriented x3 Psych Affect: normal affect Coding Level of Care Code Off vis,est,prev 40-64yrs Diagnoses Encounter for gynecological examination with abnormal finding Z01.411 Gynecological examination findings: abnormal finding (more content not included)... Normal DIAG MAMM W/CAD, UNILATon DIAG MAMM W/CAD, RUSTAT [facility] Imaging Services [address] [place] [id number] DIAG MAMM W/CAD, UNILAT MR#: [id number] Acct: [id number] Name: HANNY YU NADIA Rep #: [id number] : 1970 F 54 From: Josh saeed MD PCP: Dr. Elder Argueta MD Status: [facility] Study: DIAG MAMM W/CAD, UNILAT Date of Exam: 04/21/24 Exam# [id number] Ordering Dr: Dylon Mancuso -[id number] MAMMOGRAPHY - UNILATERAL DIAGNOSTIC: LEFT BREAST REASON FOR EXAM: Female, 54 years old. Status post left breast biopsy. PERTINENT HISTORY: Non-contributory. TECHNIQUE: Digital unilateral breast nehemaih (3D mammographic acquisition) in the CC and MLO projections. 2-D mediolateral oblique (MLO) and craniocaudad (CC) views of both breasts were obtained. CAD: Full Field Digital Mammography with Computer Added Detection was performed. COMPARISON: Comparison is made with prior study dated November 10, 2023. FINDINGS: Breast Composition: The breasts are heterogeneously dense, which may obscure small masses. A tissue clip marker is seen within the 1 cm nodule in the deep upper lateral aspect of the left breast. No other significant abnormalities are identified. BI/DIAG MAMM W/CAD, UNILAT IMPRESSION: Status post ultrasound-guided left breast biopsy with tissue clip marker. One year follow-up mammogram recommended. (A) ASSESSMENT CATEGORY: BIRADS Category 2: Benign. A letter regarding these results will be sent to the patient by the facility within 30 days. Approximately 10% of breast cancers are not detected by mammography. A normal mammogram should not delay biopsy of a clinically suspicious abnormality. Electronically Signed: Josh Stern MD at 15:19 EDT , CC: Dr. Dylon Mancuso MD; Dr. Elder Argueta MD Funding Analyst: Signed Normal [facility] 02-05-2021 [facility] Telephone (SheZoomS) OCHANNY Bedoya ([id number]) 1970 F Date Time Provider Department 02/05/21 JOMAR HARTMAN During your visit today, we recorded the following information about you: Iris Washburn RN 02/06/2021 8:17 AM Signed Left voicemail for patient regarding new directions for medication and that Dr. Hartman sent the prescription to [facility]. Advised patient to call if she has any questions. MD Iris Sanz RN; P [facility] General Surgery Pool Sent script to [facility]. ?She can try 20mg a day. ? Previous Messages ? ----- Message ----- From: Iris Washburn RN Sent: 02/01/2021 ? 2:53 PM EDT To: Jomar Hartman MD Patient sent a message requesting a refill on her Omeprazole 20 mg 2 tablets every day. ?I spoke with the patient and advised that according to her visit note on 08/30/2020, you advised that if she continued to need the Omeprazole, she may need additional testing (ie: manometry and pH testing). ?The patient states that she isn't sure that she wants to undergo the additional testing and like to know if you would consider refilling the Omeprazole 20 mg 1 tablet every day and try that for a period of time and then she would try stopping the medication after the reduced dose. ?Please advise. ? Allergies As of Date: 02/05/2021 Noted Allergy Reaction MORPHINE 10/29/2018 12 - Shortness of Breath Date Reviewed: 08/31/2020 Reviewed by: Jomar Hartman - Fully Assessed Reason for Visit: Medication Request [138] Order(s):omeprazole (PRILOSEC) 20 mg capsuleTake 2 capsules by mouth once daily.Disp: 60 capsuleRfl: 0 Prescriptions as of 02/06/2021 - omeprazole (PRILOSEC) 20 mg capsule Take 2 capsules by mouth once daily. - omeprazole (PRILOSEC) 20 mg capsule Take 2 capsules by mouth once daily. - famotidine (PEPCID) 20 mg tablet Take 20 mg by mouth twice daily. - 25/iron fum/folic/dha (-1 ORAL) Take by mouth once daily. - polyethylene glycol 3350 (MIRALAX ORAL) Take by mouth. - ascorbic acid (MARGO-C ORAL) Take by mouth. - docusate sodium (COLACE ORAL) Take by mouth once daily. Problem List As Of Date 02/05/2021 Noted Resolved Diverticulitis [K57.92] 04/16/2015 Prescriptions ordered this encounter Disp Refills Start End OMEPRAZOLE 20 MG CAPSULE,DELAYED REL* 60 c* 0 02/05/2021 Route: ORAL Sig: Take 2 capsules by mouth once daily. Medications Discontinued During This Encounter Prescriptions - omeprazole (PRILOSEC) 20 mg capsule (Discontinued) Take 2 capsules by mouth once daily. Encounter Status:Closed by [facility]MAN [facility] HAN[facility]U ([id number]) 1970 F Date Time Provider Department 02/05/21 JOMAR HARTMAN QuicklyChatJULIO During your visit today, we recorded the following information about you: Jomar Hartman MD 02/05/2021 7:01 PM Signed ----- Message from Iris Washburn RN sent at 02/01/2021 2:53 PM EDT ----- Patient sent a message requesting a refill on her Omeprazole 20 mg 2 tablets every day. I spoke with the patient and advised that according to her visit note on 08/30/2020, you advised that if she continued to need the Omeprazole, she may need additional testing (ie: manometry and pH testing). The patient states that she isn't sure that she wants to undergo the additional testing and like to know if you would consider refilling the Omeprazole 20 mg 1 tablet every day and try that for a period of time and then she would try stopping the medication after the reduced dose. Please advise. Allergies As of Date: 02/05/2021 Noted Allergy Reaction MORPHINE 10/29/2018 12 - Shortness of Breath Date Reviewed: 08/31/2020 Reviewed by: Jomar Hartman - Fully Assessed Reason for Visit: Medication Problem [65] Prescriptions as of 02/05/2021 - omeprazole (PRILOSEC) 20 mg capsule Take 2 capsules by mouth once daily. - omeprazole (PRILOSEC) 20 mg capsule Take 2 capsules by mouth once daily. - famotidine (PEPCID) 20 mg tablet Take 20 mg by mouth twice daily. - 25/iron fum/folic/dha (-1 ORAL) Take by mouth once daily. - polyethylene glycol 3350 (MIRALAX ORAL) Take by mouth. - ascorbic acid (MARGO-C ORAL) Take by mouth. - docusate sodium (COLACE ORAL) Take by mouth once daily. Problem List As Of Date 02/05/2021 Noted Resolved Diverticulitis [K57.92] 04/16/2015 Encounter Status:Closed by JOMAR HARTMAN on 02/05/21 [facility] OBSOLETEon 02-01-2021 OBSOLETE Refill (GENSWS) HANNY YU ([id number]) 1970 F Date Time Provider Department 02/01/21 JOMAR HARTMAN GENSWS During your visit today, we recorded the following information about you: Allergies As of Date: 02/01/2021 Noted Allergy Reaction MORPHINE 10/29/2018 12 - Shortness of Breath Date Reviewed: 08/31/2020 Reviewed by: Jomar Hartman - Fully Assessed Reason for Visit: Refill Request [94] Prescriptions as of 02/06/2021 - omeprazole (PRILOSEC) 20 mg capsule Take 2 capsules by mouth once daily. - omeprazole (PRILOSEC) 20 mg capsule Take 2 capsules by mouth once daily. - famotidine (PEPCID) 20 mg tablet Take 20 mg by mouth twice daily. - 25/iron fum/folic/dha (-1 ORAL) Take by mouth once daily. - polyethylene glycol 3350 (MIRALAX ORAL) Take by mouth. - ascorbic acid (MARGO-C ORAL) Take by mouth. - docusate sodium (COLACE ORAL) Take by mouth once daily. Problem List As Of Date 02/01/2021 Noted Resolved Diverticulitis [K57.92] 04/16/2015 Encounter Status:Closed by IRIS WASHBURN on 02/06/21 Normal [facility] CORONAVIRUS 2019 BY PCRon SARS-CoV-2 (COVID-19) RNA MEAGHAN+probe Ql (Unsp spec) Not detected Normal Not Detected [facility] Comment on above: Result Comment: . This assay is designed to detect the N, ORF1ab and/or S genes of SARS-CoV-2 via nucleic acid amplification. A Negative (NOT DETECTED) result does not preclude 2019-nCoV infection since the adequacy of sample collection and/or low viral burden may result in presence of viral nucleic acids below the clinical sensitivity of this test method. Negative (NOT DETECTED) result should not be used as the sole basis for treatment or other patient management decisions. Rather negative results should be combined with clinical observations, patient history, and epidemiological information to make patient management decisions. Fact sheet for providers: https://www.fda.gov/media/078013/download Fact sheet for patients: https://www.fda.gov/media/639982/download This test has received FDA Emergency Use Authorization (EUA) and has been verified by [facility] ([facility]). This test is only authorized for the duration of time that circumstances exist to justify the authorization of the emergency use of in vitro diagnostic tests for the detection of SARS-CoV-2 virus and/or diagnosis of COVID-19 infection under section 564(b)(1) of the Act, 21 U.S.C. 360bbb-3(b)(1), unless the authorization is terminated or revoked sooner. [facility] is certified under CLIA-88 as qualified to perform high complexity testing. Testing is performed in the [facility] laboratories located at [id number] [place] [address]. Performed By: #### C OV19 #### [address] [place] [address] Covid 19 Resultson 1 SARS-CoV-2 (COVID-19) RNA MEAGHAN+probe Ql (Unsp spec) NEGATIVE COVID-19 Test Coronaviruses are common world-wide and are the cause of many common colds. SARS-COV2 is a new coronavirus that began circulating worldwide in 2019 so we are calling it COVID-19. It has been estimated that four out of five patients with COVID-19 will recover at home without the need for medical attention. Symptoms of COVID-19 may include cough, fever, shortness of breath, loss of taste or smell and other flu-like symptoms including chills, sore muscles, sore throat, and headache. Severe illness is more common in older people and people with other health problems such as high blood pressure, obesity, and immune system problems. If the test is positive, you have COVID-19. You will be contacted by the ordering physicians office and instructed to remain on home isolation, in accordance with CDC guidelines. You may also be contacted by the [facility] to see if any of your close contacts may have been exposed to the virus and need to quarantine. If the test is negative, you likely do not have COVID-19 at this time, but you still may have a different illness that can spread to other people (like Influenza, or the Flu) and could still be at risk for getting COVID-19. We recommend that you stay away from other people to limit the spread of illness until your symptoms are improving and you are fever-free for 24 hours without the use of fever lowering medications such as acetaminophen or ibuprofen. No test is 100% accurate so if you are still concerned you may have COVID-19, talk to your doctor about the need to continue to stay away from others. Medicines Unless your provider told you not to use the following: Acetaminophen (Tylenol and others) is generally safe. Anti-inflammatory medications, such as Ibuprofen (Advil or Motrin) or Naproxen (Aleve) can also be used. Fnfr-gvz-mgrmbmq cough and cold medicines can be used according to the instructions on the package. Some bwgc-kbf-nkepwgm medicines also contain acetaminophen. Make sure you are not taking more than your recommended dose. For those not hospitalized, there is no specific treatment available for this illness. Antibiotics do not treat Coronaviruses. Follow-Up Follow up with your doctor by scheduling a virtual visit or consider follow-up at one of our urgent care fever clinics. If you are having difficulty breathing, or are very weak and having difficulty standing, this is a medical emergency. Call 911 or have someone take you to the nearest emergency room immediately. If possible, wear a facemask. Additional guidance from the CDC for patients who tested POSITIVE for COVID-19 How to isolate: Isolate yourself in a specific room at home and limit your contact with others. Use a separate bathroom from other members of the household, when possible. Leave home only to get essential medical care. Do not go to work, school or public areas. Avoid using public transportation, ride-sharing, or taxis. Restrict contact with pets and other animals. If you must care for your pet or be around animals while you are sick, wash your hands before and after your interaction and wear a facemask. Make sure that shared spaces in the home have good airflow, such as by an air conditioner or an opened window, weather permitting. Personal Hygiene Procedures: Wear a face mask when in the same room as other people or pets. If a face mask interferes with your breathing, others should wear a mask when sharing space with you. Frequent hand-washing: wash your hands with soap and water for at least 20 seconds. If soap and water are not available, use alcohol-based hand tool dispatcher. Avoid touching your eyes, nose, and mouth with unwashed hands. Household Hygiene Procedures: Avoid sharing personal household items such as dishes, glassware, cups, eating utensils, towels or bedding with other people or pets in your home. After use, these items should be washed with soap and hot water. Disinfect all high-touch surfaces every day with antibacterial cleaning solutions such as Lysol wipes, bleach, cleansers, etc. High-touch surfaces include tabletops, doorknobs, bathroom fixtures, toilets, phones, keyboards, tablets and bedside tables. Immediately clean any surfaces that may have blood, poop or body fluids on them, using antibacterial cleaning solutions such as Lysol wipes, bleach, cleansers, etc. If clothing or bedding come into contact with blood, poop or body fluids, they should be washed immediately. Follow the directions on the laundry detergent and clothing labels but hot water is recommended when possible. Stopping home isolation precautions: If possible, consult your doctor before stopping home isolation precautions. According to the CDC, you can discontinue home isolation precautions when you have met both of these criteria: Your fever and respiratory symptoms have been gone for 24 lisa (more content not included)... Normal [facility] CORONAVIRUS 2019 BY PCRon DATE OF SYMPTOM ONSET [[id number]]? [id number] [facility] Comment on above: Performed By: #### COV19 #### [facility] [address] [place] [address] Lab Specimen Source Nasal, Nasopharyngeal [facility] Comment on above: Performed By: #### COV19 #### [facility] [address] [place] [address] Provider Note - ED v2on 11-17 Provider Note - ED v2 Provider Note - ED v2: Chart Review HISTORY OF PRESENTING ILLNESS HANNY is a 50 year old Female and was seen by me at 05-Dec-2020 08:28. The historian is the patient. Triage Information: Most recent Vital Sign Value Date PAST MEDICAL HISTORY ATTESTATION: I have reviewed and confirmed nurse's/medic's notes for patient's medications, allergies, and medical, surgical, family and social history ALLERGIES/INTOLERANCES: No Known Allergies HEALTH HISTORY: No known health issues. Family history: no pertinent history. Social history: non-smoker. Currently employed- high-high school librarian OUTPATIENT MEDICATIONS: Home Medications Review Status for Reconciliation: Incomplete Med Status: Patient Currently Takes Medications Drug Name: omeprazole 20 mg oral delayed release tablet Instructions: 1 tab(s) orally once a day Drug Name: Zithromax Z-Marco A 250 mg oral tablet Instructions: 2 tab(s) by mouth at once on day 1, then 1 tablet once a day on days 2-5 SIGNIFICANT EVENTS: No known significant events or known past surgical history. PROJECT MANAGER: Is : no Is : no RESULTS/VITAL SIGNS VITAL SIGNS: T PRBP SpO2O2(LPM) %FiO2 Method 05-Dec-2020 08:25:[id number] 97 Recheck BP: 148/89 MEDICAL DECISION MAKING/ED COURSE MDM/ED COURSE: This note was generated with voice recognition software and may contain errors including spelling, grammar, syntax, and misrecognization of what was dictated. CHIEF COMPLAINT sinus pressure/pain HISTORY OF PRESENT ILLNESS Patient presents today for evaluation of sinus pressure/pain, nasal congestion, fatigue, and occasional chills - symptoms started with runny/itchy nose, sneezing, and watery eyes on Thursday (5 days ago), and have progressively worsened since then. Reports she is also having dental/jaw pain that she has sometimes had with sinus infections in the past. She had a mildly irritated sore throat (that she attributes to PND) when symptoms first started, and a mild cough that she also feels is related to the post-nasal drip, but reports the cough is not very bothersome. Denies any body aches, fever, ear pain, abdominal pain, chest pain, wheezing/shortness of breath, urinary symptoms, nausea/vomiting, and diarrhea. Appetite is slightly decreased but is able to drink fluids without difficulty; denies any loss of sense of taste or smell. Reports feels like her symptoms are getting worse since onset - slept poorly last night d/t the discomfort in her sinuses. Has been taking Mucinex Advanced Pain/Sinus without much relief; has not tried any other takt-ayf-poyecyi medications or home remedies for symptom management. No known ill contacts. Has not received the COVID-19 vaccine. REVIEW OF SYSTEMS 10 systems reviewed negative with exception of history of present illness listed above PHYSICAL EXAMINATION General: Mildly ill-appearing, well nourished female; alert and oriented; in no acute distress. Sitting comfortably on exam table. Non-dyspneic. Eyes: Pupils equal, round and reactive to light. No conjunctival erythema; no scleral icterus. No eye drainage noted. HENT: + maxillary sinus tenderness; + audible nasal congestion. Airway patent, TMs and ear canals clear bilaterally. Nasal mucosa injected and edematous. Oral mucosa moist. Throat pink and with PND but without vesicles or other oropharyngeal exudate. Uvula is midline. Neck: Supple. Tender, mobile anterior cervical lymphadenopathy on R side. Respiratory: Respirations easy and unlabored, Breath sounds equal. Lungs are clear to auscultation; no wheezes, rhonchi, or rales. Mild, semi-productive cough noted only upon request. Non-dyspneic with ambulation. Cardiovascular: Normal rate, Regular rhythm. No m/r/g. Gastrointestinal: Soft, non-tender, non-distended. Bowel sounds normoactive. Musculoskeletal: Grossly normal; appropriate for age. Integumentary: [place], warm, dry, and Intact. No rashes or skin discoloration appreciated. Good skin turgor Neurologic: Alert and oriented, no gross deficits. Cognition and Speech: Oriented, Speech clear and coherent. Psychiatric: Cooperative, Appropriate mood & affect. MEDICAL DECISION MAKING Course: Worsening; stable. Impression/Plan: I have reviewed the COVID-19 algorithm, and counseled pt on COVID-19 current recommendations. Symptoms consistent with viral sinusitis, but SUPERINTENDENT OPERATING swab obtained (using proper PPE) for COVID-19 testing d/t symptoms. Suspect that symptoms may resolve without antibiotic treatment, but rx for watch and wait antibiotic provided, with instructions to begin only if sxs not improving over the next few days. In the meantime, instructed to push fluids, rest, and to use appropriate over the counter medications as needed for management of symptoms - plain Mucinex, Flonase, and saline nasal spray may also be helpful. Encouraged avoidanc (more content not included)... Normal [facility] CNOVon 08-30-2020 CNOV Office Visit (GENSWS ) HANNY YU ([id number]) 1970 F Date Time Provider Department 08/30/20 3:40 PM JOMAR HARTMAN During your visit today, we recorded the following information about you: Jomar Hartman MD 08/31/2020 8:51 AM Signed FOLLOW UP VISIT - ENDOSCOPY NAME: Hanny Yu CLINIC NO.: [id number] DATE OF SERVICE: 08/30/2020 : 1970 REFERRING PHYSICIAN: Elder Argueta MD Hanny is a patient I am following for epigastric complaints reflux and upper abdominal bloating and pain issues. The patient is a 50 year old female for abdominal complaints and a feeling of rectal pressure. The patient has noted increased sensation of rectal pressure for the past few months. She denies blood per rectum. She denies black tarry stools. She notes occasional looser stools. She is concerned that she has developed stenosis at her colorectal anastomosis from her previous colon resection for diverticulitis. ? The patient also notes a sensation of upper abdominal bloating and discomfort. She seen her primary care physician-Dr. Elder Argueta. She currently has a CT scan scheduled for tomorrow at [facility]. ? The patient presented to [facility] on October 31, 2018 with a complaint of left lower quadrant pain. ?She was started on Augmentin as an outpatient 10 days prior to admission but felt she was failing to improve her symptomatology. ?She presented to [facility] and that date. ?She was found on evaluation in the emergency department to have a normal white blood cell count. ?CT scan of the abdomen and pelvis was obtained which demonstrated inflammation in the sigmoid region without signs of complicated diverticulitis. ?The patient was admitted and started on IV Zosyn. ?She did well on IV Zosyn and was transitioned back to oral antibiotics and discharged to home. ? The patient has a history of which she believes are approximate 7 episodes of diverticulitis. ?She had been referred to [facility] and Dr. Loya 4 years previously previously. ?They have decided against colon resection at that time since she hadn't had multiple episodes and these responded to antibiotics. ? The patient had undergone previous colonoscopy 5 years prior in [place] for what apparently demonstrated diverticulosis without other abnormalities. ? The patient returns to the office in October. ?She notes some loose stools with a small streak of blood. ?She notes a degree of mild achiness in the left lower quadrant but relatively mild discomfort and feels that overall her symptoms are improving. ?She was given a dose of Diflucan for oral candidiasis and is currently feeling better. ? She returns now with plans for colonoscopy in mid January likely followed by sigmoid resection the following day ? ? I performed a colonoscopy on February 01, 2019 which demonstrated significant diverticulosis in the sigmoid colon and few diverticula throughout the remaining colon ? I performed a laparoscopic sigmoid colectomy with low anastomosis ?on February 02, 2019. ?The patient was discharged on POD # 2. ??The patient currently notes looser but normalizing stools. ?She is taking probiotics. ?her appetite has been good. ?she denies fever, chills or abdominal pain. ?she does note some moderate incisional discomfort - mostly in the RLQ 12mm port site area. ? She also noted constipation when I saw her for endoscopy. ?A KUB was obtained which demonstrated significant right fecal loading. ?I recommended the patient start Ayaka lax. ?The patient returns today with her for his follow-up and noted looser stools but still some persistent right lower quadrant discomfort. ?A follow-up KUB was obtained which demonstrated resolution of her fecal loading. ? I obtained laboratory studies and a CT scan of the abdomen and pelvis. ?Her complete blood count was unremarkable. ?Her come presumably panel was unremarkable. ?CT scan of the abdomen and pelvis was obtained. ?This demonstrated no specific abnormalities. ?I reviewed the images. ?The patient has a clean anastomosis with no signs of perianastomotic inflammation or collections. ?She has no further fecal distention in her colon and the remainder of her CT scan appeared normal. ? The patient was doing well until approximately [place] break. ?She noted a sense of bloating upper abdominal rib pain and some worsening reflux issues. ?She saw her primary care provider-Dr. Argueta on July 25. ?He started the patient on Flagyl which she felt she tolerated poorly and stopped. ?She is noted greenish stool but denies blood in her stools. ?She also noted discomfort in her upper chest area and reflux symptoms area did she has been She denies melena she denies mucus. ?She denies vomiting. ?She did note a small amount o (more content not included)... [facility] HISTORY PHYSICALon HISTORY PHYSICAL HNO ID: [id number] Author: Jomar Hartman Service: General Surgery Author Type: Physician Type: HANDP Filed: 08/21/2020 7:22 AM Note Text: HISTORY AND PHYSICAL ? Hanny Yu 1970 ? REFERRING PHYSICIAN: Elder Argueta MD ? CHIEF COMPLAINT: Abdominal bloating, discomfort, rectal pressure ? HPI: The patient is a 50 year old female for abdominal complaints and a feeling of rectal pressure. The patient has noted increased sensation of rectal pressure for the past few months. She denies blood per rectum. She denies black tarry stools. She notes occasional looser stools. She is concerned that she has developed stenosis at her colorectal anastomosis from her previous colon resection for diverticulitis. ? The patient also notes a sensation of upper abdominal bloating and discomfort. She seen her primary care physician-Dr. Elder Argueta. She currently has a CT scan scheduled for tomorrow at [facility]. ? The patient presented to [facility] on October 31, 2018 with a complaint of left lower quadrant pain. ?She was started on Augmentin as an outpatient 10 days prior to admission but felt she was failing to improve her symptomatology. ?She presented to [facility] and that date. ?She was found on evaluation in the emergency department to have a normal white blood cell count. ?CT scan of the abdomen and pelvis was obtained which demonstrated inflammation in the sigmoid region without signs of complicated diverticulitis. ?The patient was admitted and started on IV Zosyn. ?She did well on IV Zosyn and was transitioned back to oral antibiotics and discharged to home. ? The patient has a history of which she believes are approximate 7 episodes of diverticulitis. ?She had been referred to [facility] and Dr. Loya 4 years previously previously. ?They have decided against colon resection at that time since she hadn't had multiple episodes and these responded to antibiotics. ? The patient had undergone previous colonoscopy 5 years prior in [place] for what apparently demonstrated diverticulosis without other abnormalities. ? The patient returns to the office in October. ?She notes some loose stools with a small streak of blood. ?She notes a degree of mild achiness in the left lower quadrant but relatively mild discomfort and feels that overall her symptoms are improving. ?She was given a dose of Diflucan for oral candidiasis and is currently feeling better. ? She returns now with plans for colonoscopy in mid January likely followed by sigmoid resection the following day ? ? I performed a colonoscopy on February 01, 2019 which demonstrated significant diverticulosis in the sigmoid colon and few diverticula throughout the remaining colon ? I performed a laparoscopic sigmoid colectomy with low anastomosis ?on February 02, 2019. ?The patient was discharged on POD # 2. ??The patient currently notes looser but normalizing stools. ?She is taking probiotics. ?her appetite has been good. ?she denies fever, chills or abdominal pain. ?she does note some moderate incisional discomfort - mostly in the RLQ 12mm port site area. ? She also noted constipation when I saw her for endoscopy. ?A KUB was obtained which demonstrated significant right fecal loading. ?I recommended the patient start Ayaka lax. ?The patient returns today with her for his follow-up and noted looser stools but still some persistent right lower quadrant discomfort. ?A follow-up KUB was obtained which demonstrated resolution of her fecal loading. ? I obtained laboratory studies and a CT scan of the abdomen and pelvis. ?Her complete blood count was unremarkable. ?Her come presumably panel was unremarkable. ?CT scan of the abdomen and pelvis was obtained. ?This demonstrated no specific abnormalities. ?I reviewed the images. ?The patient has a clean anastomosis with no signs of perianastomotic inflammation or collections. ?She has no further fecal distention in her colon and the remainder of her CT scan appeared normal. ? The patient was doing well until approximately [place] break. ?She noted a sense of bloating upper abdominal rib pain and some worsening reflux issues. ?She saw her primary care provider-Dr. Argueta on July 25. ?He started the patient on Flagyl which she felt she tolerated poorly and stopped. ?She is noted green or stool since last Thursday but denies blood in her stools. ?She also noted discomfort in her upper chest area and reflux symptoms area did she has been taking Ayaka lax daily but stopped 3 years ago due to the green stools. ?She denies melena she denies mucus. ?She denies vomiting. ?She did note a small amount of blood on the toilet paper yesterday. ? Laboratories were obtained which were generally unremarkable. ?Stool studies were obtained which were also unremarkable negative for enteric patho (more content not included)... [facility] NURSING PROGon 08-21-2020 NURSING PROG HNO ID: [id number] Author: Tram Grossman) TORSTEN Bhatia Service: ? Author Type: Registered Nurse Type: Nursing Progress Note Filed: 08/21/2020 8:00 AM Note Text: Arrived in phase II via cart. Left lateral position. Sedated, but responds to verbal stimuli. Color normal; skin warm and dry. Respirations wnl and unlabored. Abdomen soft and with + bowel sounds in quads X 4. Patient resting comfortably. Dr. Hartman at bedside to review procedure and recommendations. Tram Bhatia RN [facility] NURSING PROG HNO ID: [id number] Author: Tram (Rn) TORSTEN Bhatia Service: ? Author Type: Registered Nurse Type: Nursing Progress Note Filed: 08/21/2020 7:27 AM Note Text: [facility] PRE-OP NURSING HAND OFF NOTE SBAR Hand off given to Brielle Silva RN. Hand off was communicated verbally and at the patient's bedside and all questions were answered. Tram Bhatia RN [facility] SURGICAL PATHOLOGYon 021 SURGICAL PATHOLOGY Specimen originated from [facility] Specimen #: [id number] Submitting Physician: JOMAR HARTMAN ([id number]) FINAL DIAGNOSIS 1. Stomach, antrum, biopsy (A) - Gastric antral-type mucosa with no significant pathologic change. - No intestinal metaplasia or morphologic evidence of Helicobacter pylori organisms. 2. Esophagus, distal, biopsy (B) - Mildly inflamed gastric cardiofundic-type mucosa with reactive epithelial changes. - No intestinal metaplasia or squamous epithelium. 3. Esophagus, mid, biopsy (C) - Squamous esophageal mucosa with no significant pathologic change. ECS/sed 08/22/2020 Migdalia Kaba M.D. (Electronic Signature) SPECIMEN SUBMITTED A: ANTRUM, BIOPSY B: DISTAL ESOPHAGUS, BIOPSY C: MID ESOPHAGUS, BIOPSY CLINICAL DATA BLOATING, EPIGASTRIC DISCOMFORT, LMP: N/A A: H/H GROSS DESCRIPTION A. Received in formalin is one piece of [place], soft tissue measuring 0.3 x 0.2 x 0.2 cm. Totally submitted in one cassette. B. Received in formalin are two pieces of [place], soft tissue aggregating to 0.3 x 0.2 x 0.2 cm. Totally submitted in one cassette. C. Received in formalin is one piece of [place], soft tissue measuring 0.2 x 0.2 x 0.2 cm. Totally submitted in one cassette. Gross examination performed at [facility], [address] [place] [address] 08/21/2020 10:44:46 PM Date of Report: 08/22/2020 Date of Procedure: 08/21/2020 Date of Receipt: 08/21/2020 Submitted by: JOMAR HARTMAN ([email or web address]) Location: [facility] Diagnostic interpretation performed at [place] [address]. CLIA Number: [id number] [facility] HOSPon 08-08-2020 HOSP Patient:Loi Yu MRN: Height:5' 4(1.626 m) Weight:139 lb 15.9 oz (63.5 kg) Outpatient Medications as of 08/21/20: famotidine (PEPCID) 20 mg tablet 25/iron fum/folic/dha (-1 ORAL) polyethylene glycol 3350 (MIRALAX ORAL) ascorbic acid (MARGO-C ORAL) docusate sodium (COLACE ORAL) Admission/Clinic Administered Medications as of 08/21/20: lactated ringers infusion fentaNYL 50 mcg/mL 25-100 mcg injection (SUBLIMAZE) midazolam 1-5 mg injection (VERSED) diphenhydrAMINE 12.5-50 mg injection (BENADRYL) benzocaine 20% 1 [place] (TOPEX) Problem List: Diverticulitis [K57.92] Allergies: Morphine Date Verified: 08/21/20 Lab Values No results within the last 30 days for the following basenames: K,HCT Progress Notes ([facility]): THEE ESCALANTE RDMS 08/06/2020 10:37 AM Signed Radiology Service Progress Note PATIENT NAME: Hanny Yu DATE OF SERVICE: August 06, 2020 TIME: 10:37 AM PATIENT IDENTITY VERIFICATION COMPLETED USING TWO (2) IDENTIFIERS: Name and Date of confirmed by patient verbally. FALL SCREENING: Has the patient had 2 falls in the last year or 1 fall with injury or currently using an Ambulatory Assistive Device (Walker, Cane, Wheelchair, Crutches, etc.)? No PATIENT GENDER DATA: Female. status: : No status: N/A PATIENT RELEVANT IMPLANT DATA REVIEWED: Not Applicable RADIOLOGY DEPARTMENT: Ultrasound PERIPHERAL IV DATA: Not applicable SIGNED BY: THEE ESCALANTE RDMS RVT August 06, 2020 10:37 AM Progress Notes ([facility]): Margret Albarado LPN 08/03/2020 12:[address] Hartman, patient will need and EGD in the ASC. Only EGD at this time. Attempted to contact patient no answer and voice mail is full. Adolfo Feldman 08/08/2020 10:27 AM Signed 08-21-2020 EGD ASC Adolfo Feldman [facility] FEMALE PELVIS TRANSVAGon 08-06-2020 FEMALE PELVIS TRANSVAG * * *Final Report* * * DATE OF EXAM: Aug 06 2020 10:36AM WRU [id number] - US FEMALE PELVIS TRANSVAG / PROCEDURE REASON: Rectal pressure * * * * Physician Interpretation * * * * EXAMINATION: TRANSVAGINAL AND LIMITED TRANSABDOMINAL PELVIC ULTRASOUND CLINICAL HISTORY: Rectal pressure. Enlarged uterus noted on outside CT. Previous atrial ablation. TECHNIQUE: Sonography of the pelvis was performed by transvaginal and transabdominal (limited) techniques. Images were obtained and stored in a permanent archive. MQ: [id number] COMPARISON: Comparison is made to prior CT dated 01 April 2019 RESULT: Uterus size: 9.2 x 6.2 x 3.7 cm -Orientation: Anteverted -Myometrium: Normal sonographic appearance. No focal myometrial masses -Endometrial echo complex: 0.32 cm transabdominally. Transvaginally not adequately seen. -Cervix: normal Right ovary: Not visualized. No adnexal masses. Left ovary: 4.5 x 2.9 x 2.3 cm. Normal sonographic appearance. There are normal follicular changes with a dominant mildly complex cyst measuring 2.5 x 2 x 1.3 cm which is almost certainly benign. Arterial and venous vascular flow is identified. Free fluid: None IMPRESSION: Suboptimal visualization of the endometrium. Transabdominally it does not appear thickened by size criteria. Complex cyst within the left ovary which is likely functional and almost certainly benign. Right ovary is not visualized due to shadowing from bowel gas. Funding Analyst: [facility] Transcribe Date/Time: Aug 06 2020 11:51A Dictated by : MALIHA NEWMAN MD This examination was interpreted and the report reviewed and electronically signed by: MALIHA NEWMAN MD on Aug 06 2020 6:18PM EST [id number] [facility] Mai 08-03-2020 CNPN Telephone (GENSWS) HANNY YU ([id number]) 1970 F Date Time Provider Department 08/03/20 JOMAR HARTMAN During your visit today, we recorded the following information about you: Margret Albarado LPN 08/03/2020 12:[address] Hartman, patient will need and EGD in the ASC. Only EGD at this time. Attempted to contact patient no answer and voice mail is full. Adolfo Feldman 08/08/2020 10:27 AM Signed 08-21-2020 EGD ASC Adolfo Feldman Allergies As of Date: 08/03/2020 Noted Allergy Reaction MORPHINE 10/29/2018 12 - Shortness of Breath Date Reviewed: 07/31/2020 Reviewed by: Jomar Hartman - Fully Assessed Reason for Visit: 08-21-2020 EGD ASC [Other] Reason For Visit History Recorded Prescriptions as of 08/03/2020 Sig: FAMOTIDINE 20 MG TABLET Take 20 mg by mouth twice jey* -1 ORAL Take by mouth once daily. MIRALAX ORAL Take by mouth. MARGO-C ORAL Take by mouth. COLACE ORAL Take by mouth once daily. Problem List As Of Date 08/03/2020 Noted Resolved Diverticulitis [K57.92] 04/16/2015 Encounter Status:Closed by MARGRET ALBARADO LPN on 08/08/20 [facility] CNOVon 07-31-2020 CNOV Office Visit (GENSWS ) HANNY YU ([id number]) 1970 F Date Time Provider Department 07/31/20 8:00 AM JOMAR HARTMAN During your visit today, we recorded the following information about you: Temperature Pulse Blood pressure Weight 96.6 degrees 100/minute 118/88 63.5 kg Jomar Hartman MD 08/03/2020 12:53 PM Signed HISTORY AND PHYSICAL Hanny Yu 1970 REFERRING PHYSICIAN: Elder Argueta MD CHIEF COMPLAINT: Abdominal bloating, discomfort, rectal pressure HPI: The patient is a 50 year old female for abdominal complaints and a feeling of rectal pressure. The patient has noted increased sensation of rectal pressure for the past few months. She denies blood per rectum. She denies black tarry stools. She notes occasional looser stools. She is concerned that she has developed stenosis at her colorectal anastomosis from her previous colon resection for diverticulitis. The patient also notes a sensation of upper abdominal bloating and discomfort. She seen her primary care physician-Dr. Elder Argueta. She currently has a CT scan scheduled for tomorrow at [facility]. The patient presented to [facility] on October 31, 2018 with a complaint of left lower quadrant pain. ?She was started on Augmentin as an outpatient 10 days prior to admission but felt she was failing to improve her symptomatology. ?She presented to [facility] and that date. ?She was found on evaluation in the emergency department to have a normal white blood cell count. ?CT scan of the abdomen and pelvis was obtained which demonstrated inflammation in the sigmoid region without signs of complicated diverticulitis. ?The patient was admitted and started on IV Zosyn. ?She did well on IV Zosyn and was transitioned back to oral antibiotics and discharged to home. ? The patient has a history of which she believes are approximate 7 episodes of diverticulitis. ?She had been referred to [facility] and Dr. Loya 4 years previously previously. ?They have decided against colon resection at that time since she hadn't had multiple episodes and these responded to antibiotics. ? The patient had undergone previous colonoscopy 5 years prior in [place] for what apparently demonstrated diverticulosis without other abnormalities. ? The patient returns to the office in October. ?She notes some loose stools with a small streak of blood. ?She notes a degree of mild achiness in the left lower quadrant but relatively mild discomfort and feels that overall her symptoms are improving. ?She was given a dose of Diflucan for oral candidiasis and is currently feeling better. ? She returns now with plans for colonoscopy in mid January likely followed by sigmoid resection the following day ? ? I performed a colonoscopy on February 01, 2019 which demonstrated significant diverticulosis in the sigmoid colon and few diverticula throughout the remaining colon ? I performed a laparoscopic sigmoid colectomy with low anastomosis ?on February 02, 2019. ?The patient was discharged on POD # 2. ??The patient currently notes looser but normalizing stools. ?She is taking probiotics. ?her appetite has been good. ?she denies fever, chills or abdominal pain. ?she does note some moderate incisional discomfort - mostly in the RLQ 12mm port site area. ? She also noted constipation when I saw her for endoscopy. ?A KUB was obtained which demonstrated significant right fecal loading. ?I recommended the patient start Ayaka lax. ?The patient returns today with her for his follow-up and noted looser stools but still some persistent right lower quadrant discomfort. ?A follow-up KUB was obtained which demonstrated resolution of her fecal loading. ? I obtained laboratory studies and a CT scan of the abdomen and pelvis. ?Her complete blood count was unremarkable. ?Her come presumably panel was unremarkable. ?CT scan of the abdomen and pelvis was obtained. ?This demonstrated no specific abnormalities. ?I reviewed the images. ?The patient has a clean anastomosis with no signs of perianastomotic inflammation or collections. ?She has no further fecal distention in her colon and the remainder of her CT scan appeared normal. ? The patient was doing well until approximately [place] break. ?She noted a sense of bloating upper abdominal rib pain and some worsening reflux issues. ?She saw her primary care provider-Dr. Argueta on July 25. ?He started the patient on Flagyl which she felt she tolerated poorly and stopped. ?She is noted green or stool since last Thursday but denies blood in her stools. ?She also noted discomfort in her upper chest area and reflux symptoms area did she has been taking Ayaka lax daily but stopped 3 years ago due to the green stools. ?She denies melena she denies mucu (more content not included)... Normal [facility] Office Visit: abnormal left mammogramon 02-09-2017 Fall risk assessment No [facility] [employer] Work Phone: Protein mass conc T [facility] [employer] Work Phone: Protein mass conc Done [facility] [employer] Work Phone: Tobacco smoking status NHIS Never smoker [facility] [employer] Work Phone: Office Visit: abnormal left mammogramon 07-20-2014 Protein mass conc Colonoscopy (procedure) [facility] Work Phone: Vital Signs Date Time Vital Sign Value Performing Clinician Facility 12-05-2020 10:25-0400 Body height 162.5 cm Elder Argueta Other Phone: [facility] 12-05-2020 10:25-0400 Body temperature 97.88 [degF] Elder Argueta Other Phone: [facility] 12-05-2020 10:25-0400 Diastolic blood pressure 95 mm[Hg] Elder Agrueta Other Phone: [facility] 12-05-2020 10:25-0400 Heart rate 95 /min Elder Argueta Other Phone: [facility] 12-05-2020 10:25-0400 Respiratory rate 16 /min Elder Argueta Other Phone: [facility] 12-05-2020 10:25-0400 SaO2% (BldA) [Mass fraction] 97 % Elder Argueta Other Phone: [facility] 12-05-2020 10:25-0400 Systolic blood pressure 141 mm[Hg] Elder Argueta Other Phone: [facility] 02-09-2017 13:23-0400 BMI (Body Mass Index) 25.4 kg/m2 Avis Rojas MD [facility] Work Phone: 02-09-2017 13:23-0400 Body Temperature 97.8 [degF] Avis Rojas MD [facility] Work Phone: 02-09-2017 13:23-0400 BP Diastolic 80 mm[Hg] Avis Rojas MD [facility] Work Phone: 02-09-2017 13:23-0400 BP Systolic 121 mm[Hg] Avis Rojas MD [facility] Work Phone: 02-09-2017 13:23-0400 Height 162.56 cm Avis Rojas MD [facility] Work Phone: 02-09-2017 13:23-0400 Pulse (Heart Rate) 78 /min Avis Rojas MD [facility] Work Phone: 02-09-2017 13:23-0400 Respiratory Rate 18 /min Avis Rojas MD [facility] Work Phone: 02-09-2017 13:23-0400 Weight 67.13 kg Avis Rojas MD [facility] Work Phone: Encounters Encounter Date Encounter Type Care Provider Facility Start: 01-16-2025 End: 01-16-2025 ambulatory Delaney Zimmerman [employer] [facility] Start: 12-29-2024 ambulatory Delaney Zimmerman [employer] Facil [facility]y:[facility] Start: 04-21-2024 ambulatory Dylon Mancuso Faci lity: Start: 04-21-2024 End: 04-21-2024 ambulatory Dylon Mancuso Facility: Start: 12-05-2020 End: 12-05-2020 Emergency department patient visit Tiki Reyes [facility] Start: 09-05-2017 End: 09-05-2017 Ambulatory Sulaiman Sepulveda Facility:[facility] Procedures Date Procedure Procedure Detail Performing Clinician Start: 02-09-2017 End: 02-09-2017 Dietary management education, guidance, and counseling Avis Rojas MD Plan of Treatment Date Care Activity Detail Author Start: 02-09-2017 End: 02-09-2017 Appointment Appointment [facility] Work Phone: Start: 02-09-2017 End: 02-09-2017 Follow-up visit Follow Up as needed [facility] Work Phone: Payers Date Payer Category Payer Self-pay 2020 Unknown [id number] 2017 Unknown Unknown [id number] [id number] Unknown [id number] [id number] [id number] Unknown [id number] [id number] [id number] Unknown [id number] [id number] [id number] Unknown [id number] [id number] [id number] Social History Date Type Detail Facility [facility] Tobacco smoking consumption unknown [facility] Progress note 08-31-2020 Note Date & Type Note Facility 08-31-2020 Note HNO ID: [id number] Author: Jomar Hartman Service: ? Author Type: Physician Type: Progress Notes Filed: 08/31/2020 8:51 AM Note Text: FOLLOW UP VISIT - ENDOSCOPY NAME: Hanny Yu [employer] NO.: [id number] DATE OF SERVICE: 08/30/2020 : 1970 REFERRING PHYSICIAN: Elder Argueta MD Hanny is a patient I am following for epigastric complaints reflux and upper abdominal bloating and pain issues. The patient is a 50 year old female for abdominal complaints and a feeling of rectal pressure. The patient has noted increased sensation of rectal pressure for the past few months. She denies blood per rectum. She denies black tarry stools. She notes occasional looser stools. She is concerned that she has developed stenosis at her colorectal anastomosis from her previous colon resection for diverticulitis. ? The patient also notes a sensation of upper abdominal bloating and discomfort. She seen her primary care physician-Dr. Elder Argueta. She currently has a CT scan scheduled for tomorrow at [facility]. ? The patient presented to [facility] on October 31, 2018 with a complaint of left lower quadrant pain. ?She was started on Augmentin as an outpatient 10 days prior to admission but felt she was failing to improve her symptomatology. ?She presented to [facility] and that date. ?She was found on evaluation in the emergency department to have a normal white blood cell count. ?CT scan of the abdomen and pelvis was obtained which demonstrated inflammation in the sigmoid region without signs of complicated diverticulitis. ?The patient was admitted and started on IV Zosyn. ?She did well on IV Zosyn and was transitioned back to oral antibiotics and discharged to home. ? The patient has a history of which she believes are approximate 7 episodes of diverticulitis. ?She had been referred to [facility] and Dr. Loya 4 years previously previously. ?They have decided against colon resection at that time since she hadn't had multiple episodes and these responded to antibiotics. ? The patient had undergone previous colonoscopy 5 years prior in [place] for what apparently demonstrated diverticulosis without other abnormalities. ? The patient returns to the office in October. ?She notes some loose stools with a small streak of blood. ?She notes a degree of mild achiness in the left lower quadrant but relatively mild discomfort and feels that overall her symptoms are improving. ?She was given a dose of Diflucan for oral candidiasis and is currently feeling better. ? She returns now with plans for colonoscopy in mid January likely followed by sigmoid resection the following day ? ? I performed a colonoscopy on February 01, 2019 which demonstrated significant diverticulosis in the sigmoid colon and few diverticula throughout the remaining colon ? I performed a laparoscopic sigmoid colectomy with low anastomosis ?on February 02, 2019. ?The patient was discharged on POD # 2. ??The patient currently notes looser but normalizing stools. ?She is taking probiotics. ?her appetite has been good. ?she denies fever, chills or abdominal pain. ?she does note some moderate incisional discomfort - mostly in the RLQ 12mm port site area. ? She also noted constipation when I saw her for endoscopy. ?A KUB was obtained which demonstrated significant right fecal loading. ?I recommended the patient start Ayaka lax. ?The patient returns today with her for his follow-up and noted looser stools but still some persistent right lower quadrant discomfort. ?A follow-up KUB was obtained which demonstrated resolution of her fecal loading. ? I obtained laboratory studies and a CT scan of the abdomen and pelvis. ?Her complete blood count was unremarkable. ?Her come presumably panel was unremarkable. ?CT scan of the abdomen and pelvis was obtained. ?This demonstrated no specific abnormalities. ?I reviewed the images. ?The patient has a clean anastomosis with no signs of perianastomotic inflammation or collections. ?She has no further fecal distention in her colon and the remainder of her CT scan appeared normal. ? The patient was doing well until approximately [place] break. ?She noted a sense of bloating upper abdominal rib pain and some worsening reflux issues. ?She saw her primary care provider-Dr. Argueta on July 25. ?He started the patient on Flagyl which she felt she tolerated poorly and stopped. ?She is noted greenish stool but denies blood in her stools. ?She also noted discomfort in her upper chest area and reflux symptoms area did she has been She denies melena she denies mucus. ?She denies vomiting. ?She did note a small amount of blood on the toilet paper yesterday. ? Laboratories were obtained which were generally unremarkable. ?Stool studies were obtained which were also unremarkable negative for enteric pathog (more content not included)... [facility] Progress note 08-06-2020 Note Date & Type Note Facility 08-06-2020 Note HNO ID: [id number] Author: Thee Goddardracquel Escalante Service: ? Author Type: [employer] Manager Type: Progress Notes Filed: 08/06/2020 10:37 AM Note Text: Radiology Service Progress Note PATIENT NAME: Hanny Yu DATE OF SERVICE: August 06, 2020 TIME: 10:37 AM PATIENT IDENTITY VERIFICATION COMPLETED USING TWO (2) IDENTIFIERS: Name and Date of confirmed by patient verbally. FALL SCREENING: Has the patient had 2 falls in the last year or 1 fall with injury or currently using an Ambulatory Assistive Device (Walker, Cane, Wheelchair, Crutches, etc.)? No PATIENT GENDER DATA: Female. status: : No status: N/A PATIENT RELEVANT IMPLANT DATA REVIEWED: Not Applicable RADIOLOGY DEPARTMENT: Ultrasound PERIPHERAL IV DATA: Not applicable SIGNED BY: THEE ESCALANTE RDMS RVT August 06, 2020 10:37 AM [facility] Progress note 07-31-2020 Note Date & Type Note Facility 07-31-2020 Note HNO ID: [id number] Author: Jomar Hartman Service: ? Author Type: Physician Type: Progress Notes Filed: 08/03/2020 12:53 PM Note Text: HISTORY AND PHYSICAL Hanny Yu 1970 REFERRING PHYSICIAN: Elder Argueta MD CHIEF COMPLAINT: Abdominal bloating, discomfort, rectal pressure HPI: The patient is a 50 year old female for abdominal complaints and a feeling of rectal pressure. The patient has noted increased sensation of rectal pressure for the past few months. She denies blood per rectum. She denies black tarry stools. She notes occasional looser stools. She is concerned that she has developed stenosis at her colorectal anastomosis from her previous colon resection for diverticulitis. The patient also notes a sensation of upper abdominal bloating and discomfort. She seen her primary care physician-Dr. Elder Argueta. She currently has a CT scan scheduled for tomorrow at [facility]. The patient presented to [facility] on October 31, 2018 with a complaint of left lower quadrant pain. ?She was started on Augmentin as an outpatient 10 days prior to admission but felt she was failing to improve her symptomatology. ?She presented to [facility] and that date. ?She was found on evaluation in the emergency department to have a normal white blood cell count. ?CT scan of the abdomen and pelvis was obtained which demonstrated inflammation in the sigmoid region without signs of complicated diverticulitis. ?The patient was admitted and started on IV Zosyn. ?She did well on IV Zosyn and was transitioned back to oral antibiotics and discharged to home. ? The patient has a history of which she believes are approximate 7 episodes of diverticulitis. ?She had been referred to [facility] and Dr. Loya 4 years previously previously. ?They have decided against colon resection at that time since she hadn't had multiple episodes and these responded to antibiotics. ? The patient had undergone previous colonoscopy 5 years prior in [place] for what apparently demonstrated diverticulosis without other abnormalities. ? The patient returns to the office in October. ?She notes some loose stools with a small streak of blood. ?She notes a degree of mild achiness in the left lower quadrant but relatively mild discomfort and feels that overall her symptoms are improving. ?She was given a dose of Diflucan for oral candidiasis and is currently feeling better. ? She returns now with plans for colonoscopy in mid January likely followed by sigmoid resection the following day ? ? I performed a colonoscopy on February 01, 2019 which demonstrated significant diverticulosis in the sigmoid colon and few diverticula throughout the remaining colon ? I performed a laparoscopic sigmoid colectomy with low anastomosis ?on February 02, 2019. ?The patient was discharged on POD # 2. ??The patient currently notes looser but normalizing stools. ?She is taking probiotics. ?her appetite has been good. ?she denies fever, chills or abdominal pain. ?she does note some moderate incisional discomfort - mostly in the RLQ 12mm port site area. ? She also noted constipation when I saw her for endoscopy. ?A KUB was obtained which demonstrated significant right fecal loading. ?I recommended the patient start Ayaka lax. ?The patient returns today with her for his follow-up and noted looser stools but still some persistent right lower quadrant discomfort. ?A follow-up KUB was obtained which demonstrated resolution of her fecal loading. ? I obtained laboratory studies and a CT scan of the abdomen and pelvis. ?Her complete blood count was unremarkable. ?Her come presumably panel was unremarkable. ?CT scan of the abdomen and pelvis was obtained. ?This demonstrated no specific abnormalities. ?I reviewed the images. ?The patient has a clean anastomosis with no signs of perianastomotic inflammation or collections. ?She has no further fecal distention in her colon and the remainder of her CT scan appeared normal. ? The patient was doing well until approximately [place] break. ?She noted a sense of bloating upper abdominal rib pain and some worsening reflux issues. ?She saw her primary care provider-Dr. Argueta on July 25. ?He started the patient on Flagyl which she felt she tolerated poorly and stopped. ?She is noted green or stool since last Thursday but denies blood in her stools. ?She also noted discomfort in her upper chest area and reflux symptoms area did she has been taking Ayaka lax daily but stopped 3 years ago due to the green stools. ?She denies melena she denies mucus. ?She denies vomiting. ?She did note a small amount of blood on the toilet paper yesterday. ? Laboratories were obtained which were generally unremarkable. ?Stool studies were obtained which were also unremarkable negative for enteric pathogens. ? I performed upp (more content not included)... [facility] Summary Purpose Family History No Family History Records FoundNo Family History Records FoundNo Family History Records FoundNo Family History Records Found Advance Directives No Advanced Directives Records FoundNo Advanced Directives Records FoundNo Advanced Directives Records FoundNo Advanced Directives Records Found Additional Source Comments INFORMATION SOURCE (unrecogn ized section and content) DATE CREATED AUTHOR 01/08/2018 [facility] DATE CREATED AUTHOR AUTHOR'S ORGANIZ ATION 12/12/2020 [facility]erg[facility] with [facility] DATE CREATED AUTHOR AUTHOR'S ORGANIZ ATION 07/07/2021 [facility] DATE CREATED AUTHOR AUTHOR'S ORGANIZ ATION 01/16/2025 [facility] <item> Privacy Markings (unrecogniz ed section and content) Section Author: Randee Conti PROHIBITION ON REDISCLOSURE OF CONFIDENTIAL INFORMATION This notice accompanies a disclosure of information concerning a client made to you with the consent of such client. FOR RECORDS PERTAINING TO PATIENTS WHO ARE OR HAVE BEEN ENROLLED IN A CHEMICAL DEPENDENCY/SUBSTANCEABUSE PROGRAM, SOME INFORMATION MAY BE OMITTED. This clinical summary was aggregated from multiple sources. Caution should be exercised in using it in the provision of clinical care. This summary normalizes information from multiple sources, and as a consequence, information in this document may materially change the coding, format and clinical context of patient data. In addition, data may be omitted in some cases. CLINICAL DECISIONS SHOULD BE BASED ON THE PRIMARY CLINICAL RECORDS. [facility] [employer] [facility]. provides no warranty or guarantee of the accuracy or completeness of information in this document.
[2025-01-16 13:09] LABS: CORTISOL AM 7.92 ug/dL (6.02-18.40)
[2025-01-17 04:07] LABS: Thyroid Peroxidase AB 9 IU/mL (0-34)
== END | disposition home or self-care (01) ==
PROVIDERS: PCP Family Medicine; Referring Provider Nurse Practitioner Women's Health; Visit Provider Nurse Practitioner Women's Health
DX: Z15.01 Genetic susceptibility to malignant neoplasm of breast (principal); Z80.0 Family history of malignant neoplasm of digestive organs; Z80.3 Family history of malignant neoplasm of breast; R53.83 Other fatigue; Z13.29 Encounter for screening for other suspected endocrine disorder
CPT/HCPCS: 36415; 82306; 82533; 84439; 84443; 86376

== ENCOUNTER → 2025-02-20 | Outpatient (CLI) | payer OTHER, SELFPAY ==
--- NOTE | 2025-02-20 09:55 | MRI_ITS ---
PROCEDURE: BREAST BILATERAL W/O AND W 02/20/2025 REASON FOR EXAM: HIGH RISK BREAST CANCER Breast tenderness along the lateral aspect and axillary regions of both breasts. Patient had left breast biopsy in fall 2023. Biopsy was benign. Patient's sister was diagnosed with breast cancer. TECHNIQUE: BREAST BILATERAL W/O AND W CONTRAST: 15 ml COMPARISON: Mammogram dated 04/21/2024, 11/10/2023 and 09/22/2022. A left breast ultrasound dated 11/11/2023 was also reviewed. FINDINGS: TISSUE DENSITY: There are scattered areas of fibroglandular density. Background Parenchymal Enhancement: Minimal RIGHT Breast: No suspicious mass or non-mass enhancement. LEFT Breast: No suspicious mass or non-mass enhancement. There is a 12 mm nonenhancing mass in the superior outer aspect of the left breast approximately 7 cm from the nipple. This mass was previously biopsied and shown to represent a benign process. Other Findings: No suspicious axillary or internal mammary lymph nodes. Visualized portions of the thoracic and abdominal viscera are unremarkable. MRI/Breast Bilateral W/O and W IMPRESSION: OVERALL FINAL ASSESSMENT BI-RADS 2: BENIGN RECOMMENDATION: Immediate Follow-up Recommended. Patient should return at this time for routine yearly screening mammography. She is past due. Her screening mammogram should have been performed October. MRI does not replace mammography for annual breast cancer screening Reading Location: [id number]
== END | disposition home or self-care (01) ==
PROVIDERS: PCP Family Medicine; Referring Provider Nurse Practitioner Women's Health; Visit Provider Nurse Practitioner Women's Health
DX: Z12.39 Encounter for other screening for malignant neoplasm of breast (principal); Z91.89 Other specified personal risk factors, not elsewhere classified; Z80.3 Family history of malignant neoplasm of breast
CPT/HCPCS: 77049; A9575; A4216; C8908

== ENCOUNTER → 2025-05-19 | Outpatient (CLI) | payer OTHER, SELFPAY ==
--- NOTE | 2025-05-19 08:30 | BI_ITS ---
EXAM: SCRN MAMM (CAD)W/ADRIANNA BILAT DATE: 05/19/2025 CLINICAL HISTORY: F, Age 55 y/o , SCREEN FOR BREAST CANCER TECHNIQUE: Procedure Code: [id number] Modality: MG Procedure: SCRN MAMM (CAD)W/ADRIANNA BILAT COMPARISON: Prior exam(s) dated 04/21/2024, 11/10/2023, 09/22/2022. FINDINGS: TISSUE DENSITY: There are scattered areas of fibroglandular density. Bilateral Breast Mammographic Findings: No significant masses, calcifications or other abnormalities are identified. BI/SCRN MAMM (CAD)W/ADRIANNA BILAT IMPRESSION: There is no mammographic evidence of malignancy. OVERALL FINAL ASSESSMENT BI-RADS 1: NEGATIVE. RECOMMENDATION: Routine annual follow-up in 1 Year Additional Recommendation none A letter with findings and recommendations will be mailed to the patient. Reading Location: [id number]
== END | disposition home or self-care (01) ==
LOC: OPBI 08:19
PROVIDERS: PCP Family Medicine; Referring Provider Nurse Practitioner Women's Health; Visit Provider Nurse Practitioner Women's Health
DX: Z12.31 Encounter for screening mammogram for malignant neoplasm of breast (principal)
CPT/HCPCS: 77063; 77067